=== PATIENT | female | born 1985 | race Caucasian/White ===

== ENCOUNTER 2017-04-09 14:01 | Emergency (ER) | payer MEDICAID ==
[~2017-04-09] VITALS: Ht 162.6 cm; Wt 75.3 kg
[2017-04-09 14:02] VITALS: BP 118/81
[2017-04-09] MEDS ORDERED: BENZOCAINE 20% SPRAY 0.5ML TP ONE (14:30)
[2017-04-09] MEDS ORDERED: BENZOCAINE 20% SPRAY 0.5ML ONE (14:47)
[2017-04-09] MEDS ORDERED: OXYcodone/APAP 5/325MG TABLET PO ONE (15:00)
[2017-04-09] MEDS ORDERED: OXYcodone/APAP 5/325MG TABLET ONE (15:25)
== END 2017-04-09 16:20 | disposition home or self-care (01) ==
LOC: ED 16:14
DX: K04.7 Periapical abscess without sinus (principal); F17.200 Nicotine dependence, unspecified, uncomplicated
CPT/HCPCS: 41800

== ENCOUNTER 2017-08-29 22:49 | Emergency (ER) | payer MEDICAID ==
[~2017-08-29] VITALS: Ht 162.6 cm; Wt 74.3 kg
[2017-08-29] MEDS ORDERED: ONDANSETRON 2MG/ML, 2ML IVPush ONE (23:30)
[2017-08-29] MEDS ORDERED: SODIUM CHLORIDE FLUSH 10ML SYR IVF ONE (23:30)
[2017-08-29] MEDS ORDERED: SODIUM CHLORIDE 0.9% 1,000ML IVBOLUS ONE (23:30)
[2017-08-29] MEDS ORDERED: MORPHINE SULFATE 4 MG/ML, 1ML IVPush PRN (23:30)
[2017-08-29] MEDS ORDERED: ONDANSETRON 2MG/ML, 2ML ONE (23:33)
[2017-08-29 23:42] LABS: HEMATOCRIT 49.3 % (34.6-47.8); HEMOGLOBIN 16.7 g/dL (11.7-16.4)
[2017-08-29 23:59] LABS: BLOOD UREA NITROGEN 9 mg/dL (7-18)
[2017-08-30 00:06] LABS: ASPARTATE AMINO TRANSFERASE 23 U/L (15-37)
[2017-08-30 00:08] LABS: DIFF TOTAL CELLS COUNTED 100 CELL DIFF
[2017-08-30 00:14] LABS: LARGE PLATELETS 1+
[2017-08-30] MEDS ORDERED: PROMETHAZINE 25 MG/ML, 1ML ONE (01:55)
[2017-08-30] MEDS ORDERED: PROMETHAZINE 25 MG/ML, 1ML IM ONE (02:00)
[2017-08-30 02:45] VITALS: BP 104/61
[2017-08-30] MEDS ORDERED: ONDANSETRON ODT 4 MG ONE (02:50)
[2017-08-30 14:47] LABS: VERIFY COUNTS? YES
== END 2017-08-30 02:49 | disposition home or self-care (01) ==
LOC: ED 08-30 02:43
DX: R10.84 Generalized abdominal pain (principal); R11.2 Nausea with vomiting, unspecified; R19.7 Diarrhea, unspecified
CPT/HCPCS: 36415; 80053; 81003; 83690; 84703; 85025; 87324; 96361; 96372; 96374; 99284; J2405; J2550; J7030

== ENCOUNTER 2018-10-14 02:29 | Inpatient (IN) | payer MEDICAID, OTHER ==
[~2018-10-14] VITALS: Ht 162.6 cm; Wt 70.0 kg
--- NOTE | 2018-10-14 02:32 | NUR ---
PT NIL X 1
--- NOTE | 2018-10-14 03:03 | NUR ---
ASSUMED CARE OF PATIENT. PATIENT REPORTS SHE HAS BEEN SICK FOR 17 DAYS. SHE HAS HAD FEVERS, NAUSEA, VOMITING, BODY ACHES, AND HEADACHES. GIRLFRIEND AT BEDSIDE. PT REPORTS TO SHOOTING UP HEROINE TWO HOURS AGO. PULSE OX ON. WARD ASSISTANT ON. WILL CONTINUE TO MONITOR.
--- NOTE | 2018-10-14 03:24 | NUR ---
DR HERNANDEZ HAS SEEN PATIENT. PT IS NOT ABLE TO GIVE URINE AT THIS TIME CALL LIGHT IN PLACE. WILL CONTINUE TO MONITOR.
[2018-10-14 03:43] LABS: MEAN CORPUSCULAR HEMOGLOBIN 30.1 pg (27.0-34.8); MEAN CORPUSCULAR VOLUME 85.9 fL (80-100); MEAN PLATELET VOLUME 9.3 fL (7.4-10.4); PLATELET COUNT 157 x10^3/uL (130-400); RED BLOOD COUNT 4.08 x10^6/uL (3.82-5.3); RED CELL DISTRIBUTION WIDTH 14.4 % (9.6-15.2)
[2018-10-14 03:51] LABS: CHLORIDE 99 mmol/L (98-107)
[2018-10-14 03:58] LABS: ALANINE AMINOTRANSFERASE 39 U/L (12-78); ALBUMIN 1.7 g/dL (3.4-5.0); ANION GAP 10 mmol/L (5-15); CALCIUM 7.9 mg/dL (8.5-10.1); CREATININE 0.44 mg/dL (0.55-1.02)
[2018-10-14 04:15] LABS: ALKALINE PHOSPHATASE 296 U/L (45-117); BILIRUBIN,TOTAL 2.4 mg/dL (0.2-1.0); TOTAL PROTEIN 6.1 g/dL (6.4-8.2); TROPONIN I < 0.015 ng/mL (0.000-0.045)
[2018-10-14] MEDS ORDERED: ACETAMINOPHEN 500 MG TABLET ONE (04:18)
[2018-10-14 04:26] LABS: BASOPHILS # (AUTO) 0.02 x10^3/uL (0-0.1); BASOPHILS % (AUTO) 0 % (0-1); EOSINOPHILS # (AUTO) 0.02 x10^3/uL (0-0.4); EOSINOPHILS % (AUTO) 0 % (1-7); LYMPHOCYTES # (AUTO) 1.18 x10^3/uL (1-3.4); LYMPHOCYTES % (AUTO) 5 % (22-44); MD SCAN; MONOCYTES # (AUTO) 0.42 x10^3/uL (0.2-0.8); MONOCYTES % (AUTO) 2 % (2-9); NEUTROPHILS # (AUTO) 20.92 x10^3/uL (1.8-6.8); NEUTROPHILS % (AUTO) 93 % (42-75)
[2018-10-14] MEDS ORDERED: ACETAMINOPHEN 500 MG TABLET PO ONE (04:30)
[2018-10-14] MEDS ORDERED: POTASSIUM CHLORIDE 20 MEQ TAB.ER.PRT PO ONE (04:30)
--- NOTE | 2018-10-14 04:37 | NUR ---
UA COLLECTED AND SENT PT RESTING IN ROOM. GIRLFRIEND AT BEDSIDE. WILL CONTINUE TO MONITOR.
[2018-10-14] MEDS ORDERED: POTASSIUM CHLORIDE 20 MEQ TAB.ER.PRT ONE (04:45)
[2018-10-14 04:48] LABS: RAPID INFLUENZA A Negative (Negative); RAPID INFLUENZA B Negative (Negative)
[2018-10-14 04:49] LABS: MICROSCOPIC NOT IND
[2018-10-14 04:50] LABS: CULTURE INDICATED? NO
[2018-10-14] MEDS ORDERED: KETOROLAC 30 MG/1 ML ONE (04:50)
[2018-10-14] MEDS ORDERED: KETOROLAC 30 MG/1 ML IM ONE (05:00)
[2018-10-14 05:05] LABS: AMPHETAMINE SCREEN, URINE Positive (Negative); BARBITURATE SCREEN, URINE Negative (Negative); BENZODIAZEPINE SCREEN, URINE Negative (Negative); CANNABINOID SCREEN, URINE Negative (Negative); COCAINE SCREEN, URINE Negative (Negative); METHADONE SCREEN, URINE Negative (Negative); OPIATE SCREEN, URINE Positive (Negative)
--- NOTE | 2018-10-14 05:18 | NUR ---
DR HERNANDEZ IN ROOM
--- NOTE | 2018-10-14 05:31 | NUR ---
DR HERNANDEZ HAD UPDATED PATIENT. PATIENT TO BE DISCHRAGED. AWARE OF VS
--- NOTE | 2018-10-14 05:39 | NUR ---
DR HERNANDEZ IN ROOM
--- NOTE | 2018-10-14 05:56 | NUR ---
PT WILL NOT BE DISCHRAGED PT TO BE AN ADMIT
--- NOTE | 2018-10-14 06:25 | NUR ---
PT RESTING IN ROOM. OPERATING ROOM AIDE ON. SINUS TACH NOTED. VS STABLE. MD AWARE OF VS. CALL LIGHT IN PLACE. WILL CONTINUE TO MONITOR.
--- NOTE | 2018-10-14 06:55 | NUR ---
BEDSIDE REPORT GIVEN TO ZOHREH HURTADO
[2018-10-14] MEDS ORDERED: ONDANSETRON 2MG/ML, 2ML IVPush PRN (07:00)
--- NOTE | 2018-10-14 07:01 | NUR ---
Recieved bedside report from ZOHREH De. All questions answered. NADN. Pt resting on gurney connected to all monitors. Pt remains tachycardic in the 110-120's. Pt states, "I still feel like crap." Hospitalist MD at bedside at this time. All safety measures in place.
[2018-10-14] MEDS ORDERED: ENOXAPARIN 40 MG/0.4 ML ONE (07:27)
[2018-10-14] MEDS ORDERED: ONDANSETRON 2MG/ML, 2ML ONE (07:27)
[2018-10-14] MEDS ORDERED: SODIUM CHLORIDE 0.9%, 500ML IVBOLUS PRN ×2 (07:30)
[2018-10-14] MEDS ORDERED: PHARMACY MAY ADJ FOR RENAL FX MC PRN (07:30)
[2018-10-14] MEDS ORDERED: ONDANSETRON 2MG/ML, 2ML IVPB PRN (07:30)
[2018-10-14] MEDS ORDERED: SODIUM CHLORIDE 0.9% 1,000ML IVBOLUS ONE (07:30)
[2018-10-14] MEDS ORDERED: VANCOMYCIN PER PHARMACY MC PRN (07:30)
[2018-10-14] MEDS: ENOXAPARIN 40 MG/0.4 ML SQ SCH (07:38)
--- NOTE | 2018-10-14 07:44 | NUR ---
Provided report to ZOHREH Murray. All questions answered.
[2018-10-14] MEDS ORDERED: FAMOTIDINE 20 MG/2 ML ONE (07:45)
[2018-10-14] MEDS: FAMOTIDINE 20 MG/2 ML IV SCH ×2 (07:48→19:45)
[2018-10-14] MEDS: PIPERACILLIN/TAZO/PMX 4.5GM 50 ML IVPB SCH ×3 (07:50→22:22)
[2018-10-14 08:20] LABS: HCT (SEDRATE) 34.6 % (34.6-47.8)
--- NOTE | 2018-10-14 08:22 | NUR ---
PIV FLUIDS AND MEDICATIONS INFUSING PER EMAR ON TRANSFER FROM ED TO FLOOR. PT TRANSFERED TO FLOOR AND LEFT WITH ALL PERSONAL BELONGINGS.
[2018-10-14 08:30] VITALS: BP 108/71
[2018-10-14] MEDS: SODIUM CHLORIDE 0.9% 1,000 ML IV SCH ×3 (08:55→19:49)
[2018-10-14] MEDS: PLEASE ENTER HEIGHT AND WEIGHT MC SCH ×2 (10:00→16:20)
[2018-10-14 10:44] VITALS: BP_SYST 102; BP_SYST 114; BP_SYST 99; BP_DIAS 56; BP_DIAS 60; BP_DIAS 71
[2018-10-14 12:15] VITALS: BP 97/62
[2018-10-14] MEDS ORDERED: PHARMACOKINETIC MONITORING MC PRN (12:30)
[2018-10-14] MEDS ORDERED: PHARMACOKINETIC CONSULTATION MC ONE (12:30)
[2018-10-14] MEDS: ACETAMINOPHEN 325 MG TABLET PO PRN ×2 (12:55→21:29)
[2018-10-14] MEDS ORDERED: ACETAMINOPHEN 650 MG SUPP PR PRN (13:00)
[2018-10-14] MEDS ORDERED: ACETAMINOPHEN 325 MG TABLET PO PRN (13:00)
[2018-10-14] MEDS: VANCOMYCIN 1,400 MG in SODIUM CHLORIDE 0.9% 250 ML IV SCH (14:17)
[2018-10-14 19:04] VITALS: BP 114/74
[2018-10-14] MEDS: NICOTINE 21 MG/24 HR PATCH.TD24 TD SCH (19:45)
[2018-10-15] MEDS ORDERED: DIPHENHYDRAMINE 25 MG CAPSULE PO ONE
[2018-10-15] MEDS: PLEASE ENTER HEIGHT AND WEIGHT MC SCH ×3 (02:00→17:35)
[2018-10-15] MEDS: VANCOMYCIN 1,400 MG in SODIUM CHLORIDE 0.9% 250 ML IV SCH ×2 (02:14→15:36)
[2018-10-15 02:44] VITALS: BP 102/63
[2018-10-15] MEDS: SODIUM CHLORIDE 0.9% 1,000 ML IV SCH ×2 (03:12→15:37)
[2018-10-15] MEDS: PIPERACILLIN/TAZO/PMX 4.5GM 50 ML IVPB SCH ×3 (04:52→18:25)
[2018-10-15 05:13] LABS: BASOPHILS # (AUTO) 0.01 x10^3/uL (0-0.1); BASOPHILS % (AUTO) 0 % (0-1); EOSINOPHILS # (AUTO) 0.05 x10^3/uL (0-0.4); EOSINOPHILS % (AUTO) 0 % (1-7); LYMPHOCYTES # (AUTO) 2.33 x10^3/uL (1-3.4); LYMPHOCYTES % (AUTO) 15 % (22-44); MD NO; MEAN CORPUSCULAR HEMOGLOBIN 30.1 pg (27.0-34.8); MEAN CORPUSCULAR HGB CONC 34.5 g/dL (32.4-35.8); MEAN CORPUSCULAR VOLUME 87.4 fL (80-100); MONOCYTES # (AUTO) 1.02 x10^3/uL (0.2-0.8); MONOCYTES % (AUTO) 6 % (2-9); NEUTROPHILS # (AUTO) 12.48 x10^3/uL (1.8-6.8); NEUTROPHILS % (AUTO) 79 % (42-75); PLATELET COUNT 165 x10^3/uL (130-400); RED BLOOD COUNT 3.29 x10^6/uL (3.82-5.3); RED CELL DISTRIBUTION WIDTH 14.7 % (9.6-15.2)
[2018-10-15 05:21] LABS: ALBUMIN 1.4 g/dL (3.4-5.0); ANION GAP 6 mmol/L (5-15); CALCIUM 7.1 mg/dL (8.5-10.1); CHLORIDE 114 mmol/L (98-107)
[2018-10-15 05:25] LABS: ALANINE AMINOTRANSFERASE 43 U/L (12-78); ALKALINE PHOSPHATASE 314 U/L (45-117); BILIRUBIN,TOTAL 1.6 mg/dL (0.2-1.0); TOTAL PROTEIN 5.1 g/dL (6.4-8.2)
[2018-10-15 07:08] VITALS: BP 104/71
[2018-10-15] MEDS: FAMOTIDINE 20 MG/2 ML IV SCH ×2 (07:40→20:16)
[2018-10-15] MEDS: ENOXAPARIN 40 MG/0.4 ML SQ SCH (07:40)
[2018-10-15] MEDS ORDERED: KETOROLAC 30 MG/1 ML IVPush ONE ×2 (08:30→18:00)
[2018-10-15] MEDS: NICOTINE 21 MG/24 HR PATCH.TD24 TD SCH (12:52)
[2018-10-15 15:34] VITALS: BP 92/64
[2018-10-15 18:43] LABS: TROPONIN I < 0.015 ng/mL (0.000-0.045)
[2018-10-15 20:45] VITALS: BP 102/67
[2018-10-16 00:08] LABS: TROPONIN I < 0.015 ng/mL (0.000-0.045)
[2018-10-16] MEDS: SODIUM CHLORIDE 0.9% 1,000 ML IV SCH ×3 (00:47→21:23)
[2018-10-16] MEDS: PIPERACILLIN/TAZO/PMX 4.5GM 50 ML IVPB SCH (00:47)
[2018-10-16 00:52] VITALS: BP 106/68
[2018-10-16] MEDS: PLEASE ENTER HEIGHT AND WEIGHT MC SCH ×2 (02:23→07:53)
[2018-10-16] MEDS: VANCOMYCIN 1,400 MG in SODIUM CHLORIDE 0.9% 250 ML IV SCH (03:31)
[2018-10-16 05:12] VITALS: BP 92/62
[2018-10-16 06:02] LABS: MEAN CORPUSCULAR HEMOGLOBIN 29.5 pg (27.0-34.8); MEAN CORPUSCULAR HGB CONC 33.8 g/dL (32.4-35.8); MEAN CORPUSCULAR VOLUME 87.2 fL (80-100); MEAN PLATELET VOLUME 9.2 fL (7.4-10.4); PLATELET COUNT 327 x10^3/uL (130-400); RED BLOOD COUNT 3.36 x10^6/uL (3.82-5.3); RED CELL DISTRIBUTION WIDTH 14.8 % (9.6-15.2)
[2018-10-16 06:03] LABS: TROPONIN I < 0.015 ng/mL (0.000-0.045)
[2018-10-16 06:04] LABS: ALBUMIN 1.4 g/dL (3.4-5.0); ANION GAP 8 mmol/L (5-15); CALCIUM 7.2 mg/dL (8.5-10.1); CHLORIDE 113 mmol/L (98-107)
[2018-10-16 06:08] LABS: ALANINE AMINOTRANSFERASE 34 U/L (12-78); ALKALINE PHOSPHATASE 246 U/L (45-117); BILIRUBIN,TOTAL 0.8 mg/dL (0.2-1.0); CREATININE 0.86 mg/dL (0.55-1.02); TOTAL PROTEIN 5.2 g/dL (6.4-8.2)
[2018-10-16 06:40] VITALS: BP 92/63
[2018-10-16 06:41] LABS: BASOPHILS # (AUTO) 0.01 x10^3/uL (0-0.1); BASOPHILS % (AUTO) 0 % (0-1); EOSINOPHILS # (AUTO) 0.05 x10^3/uL (0-0.4); EOSINOPHILS % (AUTO) 0 % (1-7); LYMPHOCYTES # (AUTO) 2.94 x10^3/uL (1-3.4); LYMPHOCYTES % (AUTO) 22 % (22-44); MD SCAN; MONOCYTES # (AUTO) 0.55 x10^3/uL (0.2-0.8); MONOCYTES % (AUTO) 4 % (2-9); NEUTROPHILS # (AUTO) 10.08 x10^3/uL (1.8-6.8); NEUTROPHILS % (AUTO) 74 % (42-75)
[2018-10-16] MEDS: ENOXAPARIN 40 MG/0.4 ML SQ SCH (07:30)
[2018-10-16] MEDS: NICOTINE 21 MG/24 HR PATCH.TD24 TD SCH (09:00)
[2018-10-16] MEDS: CEFTRIAXONE PMX 2GM/50ML 50 ML IV SCH (10:01)
[2018-10-16] MEDS: FAMOTIDINE 20 MG/2 ML IV SCH ×2 (10:01→21:24)
[2018-10-16 14:02] VITALS: BP 113/67
[2018-10-16] MEDS ORDERED: ACETAMINOPHEN 1,000 MG/100 ML IV IVPB PRN (16:00)
[2018-10-16] MEDS ORDERED: TRAZODONE 50MG TABLET PO PRN (16:00)
[2018-10-16] MEDS ORDERED: KETOROLAC 30 MG/1 ML IVPush PRN (18:00)
[2018-10-16] MEDS: METHADONE 10 MG TABLET PO SCH (18:23)
[2018-10-16 19:51] VITALS: BP 103/69
[2018-10-16] MEDS: ACETAMINOPHEN 500 MG TABLET PO PRN (21:23)
[2018-10-16] MEDS: GABAPENTIN 300 MG CAPSULE PO PRN (21:24)
[2018-10-16] MEDS: TRAZODONE 50MG TABLET PO PRN (21:24)
[2018-10-17] MEDS: METHADONE 10 MG TABLET PO SCH ×3 (02:20→18:53)
[2018-10-17 02:22] VITALS: BP 108/72
[2018-10-17] MEDS: SODIUM CHLORIDE 0.9% 1,000 ML IV SCH ×3 (04:56→22:16)
[2018-10-17 07:15] VITALS: BP 105/67
[2018-10-17 08:00] LABS: BASOPHILS # (AUTO) 0.04 x10^3/uL (0-0.1); BASOPHILS % (AUTO) 0 % (0-1); EOSINOPHILS # (AUTO) 0.02 x10^3/uL (0-0.4); EOSINOPHILS % (AUTO) 0 % (1-7); LYMPHOCYTES # (AUTO) 2.01 x10^3/uL (1-3.4); LYMPHOCYTES % (AUTO) 18 % (22-44); MD NO; MEAN CORPUSCULAR HEMOGLOBIN 29.5 pg (27.0-34.8); MEAN CORPUSCULAR HGB CONC 34.3 g/dL (32.4-35.8); MEAN CORPUSCULAR VOLUME 86.2 fL (80-100); MEAN PLATELET VOLUME 8.7 fL (7.4-10.4); MONOCYTES # (AUTO) 0.53 x10^3/uL (0.2-0.8); MONOCYTES % (AUTO) 5 % (2-9); NEUTROPHILS % (AUTO) 76 % (42-75); PLATELET COUNT 399 x10^3/uL (130-400); RED CELL DISTRIBUTION WIDTH 14.8 % (9.6-15.2)
[2018-10-17 08:12] LABS: ALANINE AMINOTRANSFERASE 40 U/L (12-78); ALBUMIN 1.4 g/dL (3.4-5.0); ANION GAP 7 mmol/L (5-15); CALCIUM 7.3 mg/dL (8.5-10.1); CHLORIDE 115 mmol/L (98-107); CREATININE 1.02 mg/dL (0.55-1.02)
[2018-10-17] MEDS: FAMOTIDINE 20 MG/2 ML IV SCH ×2 (08:12→18:53)
[2018-10-17] MEDS: ACETAMINOPHEN 500 MG TABLET PO PRN ×2 (08:12→21:25)
[2018-10-17] MEDS: ENOXAPARIN 40 MG/0.4 ML SQ SCH (08:12)
[2018-10-17] MEDS: NICOTINE 21 MG/24 HR PATCH.TD24 TD SCH (08:13)
[2018-10-17 08:15] LABS: ALKALINE PHOSPHATASE 283 U/L (45-117); BILIRUBIN,TOTAL 0.7 mg/dL (0.2-1.0); TOTAL PROTEIN 5.4 g/dL (6.4-8.2)
[2018-10-17] MEDS: CEFTRIAXONE PMX 2GM/50ML 50 ML IV SCH (10:32)
[2018-10-17] MEDS ORDERED: GADOBUTROL 7.5 MMOL/7.5 ML PFS ONE (12:51)
[2018-10-17 14:11] VITALS: BP 103/65
[2018-10-17 18:20] VITALS: BP 106/70
[2018-10-17] MEDS: GENTAMICIN 100 MG in SODIUM CHLORIDE 0.9% 50 ML IV SCH (19:00)
[2018-10-17] MEDS: GABAPENTIN 300 MG CAPSULE PO PRN (21:25)
[2018-10-17] MEDS: TRAZODONE 50MG TABLET PO PRN (21:26)
[2018-10-18 02:00] VITALS: BP 128/75
[2018-10-18] MEDS: METHADONE 10 MG TABLET PO SCH ×3 (02:44→17:53)
[2018-10-18] MEDS: SODIUM CHLORIDE 0.9% 1,000 ML IV SCH ×3 (04:14→17:54)
[2018-10-18 07:00] VITALS: BP 102/66
[2018-10-18] MEDS: GENTAMICIN 100 MG in SODIUM CHLORIDE 0.9% 50 ML IV SCH ×2 (07:00→20:02)
[2018-10-18] MEDS: NICOTINE 21 MG/24 HR PATCH.TD24 TD SCH (08:50)
[2018-10-18] MEDS: FAMOTIDINE 20 MG/2 ML IV SCH (08:50)
[2018-10-18] MEDS: POLYETHYLENE GLYCOL 17 GM PACKET PO SCH (08:51)
[2018-10-18] MEDS: ENOXAPARIN 40 MG/0.4 ML SQ SCH (08:51)
[2018-10-18 09:47] LABS: ALBUMIN 1.4 g/dL (3.4-5.0); ANION GAP 7 mmol/L (5-15); CALCIUM 7.7 mg/dL (8.5-10.1); CHLORIDE 114 mmol/L (98-107)
[2018-10-18 09:50] LABS: ALANINE AMINOTRANSFERASE 37 U/L (12-78); ALKALINE PHOSPHATASE 261 U/L (45-117); BILIRUBIN,TOTAL 0.6 mg/dL (0.2-1.0); CREATININE 1.06 mg/dL (0.55-1.02); TOTAL PROTEIN 5.5 g/dL (6.4-8.2)
[2018-10-18] MEDS: CEFTRIAXONE PMX 2GM/50ML 50 ML IV SCH (10:31)
[2018-10-18 10:32] LABS: BASOPHILS # (AUTO) 0.03 x10^3/uL (0-0.1); BASOPHILS % (AUTO) 0 % (0-1); EOSINOPHILS # (AUTO) 0.04 x10^3/uL (0-0.4); EOSINOPHILS % (AUTO) 0 % (1-7); LYMPHOCYTES # (AUTO) 1.99 x10^3/uL (1-3.4); LYMPHOCYTES % (AUTO) 21 % (22-44); MD NO; MEAN CORPUSCULAR HEMOGLOBIN 29.3 pg (27.0-34.8); MEAN CORPUSCULAR HGB CONC 33.5 g/dL (32.4-35.8); MEAN CORPUSCULAR VOLUME 87.5 fL (80-100); MEAN PLATELET VOLUME 8.9 fL (7.4-10.4); MONOCYTES # (AUTO) 0.51 x10^3/uL (0.2-0.8); MONOCYTES % (AUTO) 5 % (2-9); NEUTROPHILS # (AUTO) 7.13 x10^3/uL (1.8-6.8); NEUTROPHILS % (AUTO) 74 % (42-75); PLATELET COUNT 412 x10^3/uL (130-400); RED BLOOD COUNT 3.12 x10^6/uL (3.82-5.3); RED CELL DISTRIBUTION WIDTH 14.6 % (9.6-15.2)
[2018-10-18] MEDS: PANTOPROZOLE 40MG TABLET PO SCH ×2 (14:42→20:02)
[2018-10-18] MEDS: ACETAMINOPHEN 500 MG TABLET PO PRN (15:42)
[2018-10-18 17:18] VITALS: BP 113/71
[2018-10-18 21:15] VITALS: BP 121/80
[2018-10-18] MEDS: TRAZODONE 50MG TABLET PO PRN (21:44)
[2018-10-18] MEDS: GABAPENTIN 300 MG CAPSULE PO PRN (21:44)
[2018-10-19] MEDS: METHADONE 10 MG TABLET PO SCH ×3 (02:25→17:55)
[2018-10-19] MEDS: SODIUM CHLORIDE 0.9% 1,000 ML IV SCH ×3 (02:25→20:55)
[2018-10-19 02:26] VITALS: BP 117/78
[2018-10-19] MEDS: PANTOPROZOLE 40MG TABLET PO SCH ×2 (04:29→21:09)
[2018-10-19] MEDS: ACETAMINOPHEN 500 MG TABLET PO PRN ×2 (04:30→15:31)
[2018-10-19 05:14] LABS: ALBUMIN 1.4 g/dL (3.4-5.0); ANION GAP 8 mmol/L (5-15); CALCIUM 7.5 mg/dL (8.5-10.1); CHLORIDE 111 mmol/L (98-107)
[2018-10-19 05:21] LABS: BASOPHILS # (AUTO) 0.03 x10^3/uL (0-0.1); BASOPHILS % (AUTO) 0 % (0-1); EOSINOPHILS # (AUTO) 0.06 x10^3/uL (0-0.4); EOSINOPHILS % (AUTO) 1 % (1-7); LYMPHOCYTES % (AUTO) 18 % (22-44); MD NO; MEAN CORPUSCULAR HEMOGLOBIN 30.5 pg (27.0-34.8); MEAN CORPUSCULAR HGB CONC 35.1 g/dL (32.4-35.8); MEAN CORPUSCULAR VOLUME 87.1 fL (80-100); MEAN PLATELET VOLUME 8.4 fL (7.4-10.4); MONOCYTES # (AUTO) 0.49 x10^3/uL (0.2-0.8); MONOCYTES % (AUTO) 5 % (2-9); NEUTROPHILS # (AUTO) 7.56 x10^3/uL (1.8-6.8); NEUTROPHILS % (AUTO) 76 % (42-75); PLATELET COUNT 438 x10^3/uL (130-400); RED BLOOD COUNT 2.88 x10^6/uL (3.82-5.3); RED CELL DISTRIBUTION WIDTH 14.1 % (9.6-15.2)
[2018-10-19 08:00] VITALS: BP 117/79
[2018-10-19] MEDS: NICOTINE 21 MG/24 HR PATCH.TD24 TD SCH (08:43)
[2018-10-19] MEDS: ENOXAPARIN 40 MG/0.4 ML SQ SCH (08:43)
[2018-10-19] MEDS: GENTAMICIN 100 MG in SODIUM CHLORIDE 0.9% 50 ML IV SCH ×2 (08:44→20:55)
[2018-10-19] MEDS: POLYETHYLENE GLYCOL 17 GM PACKET PO SCH (08:44)
[2018-10-19 10:43] LABS: ALANINE AMINOTRANSFERASE 35 U/L (12-78); ALBUMIN 1.4 g/dL (3.4-5.0); ANION GAP 5 mmol/L (5-15); CALCIUM 8.1 mg/dL (8.5-10.1); CHLORIDE 113 mmol/L (98-107); CREATININE 1.01 mg/dL (0.55-1.02)
[2018-10-19 10:45] LABS: ALKALINE PHOSPHATASE 231 U/L (45-117); BILIRUBIN,TOTAL 0.5 mg/dL (0.2-1.0); TOTAL PROTEIN 5.7 g/dL (6.4-8.2)
[2018-10-19] MEDS: CEFTRIAXONE PMX 2GM/50ML 50 ML IV SCH (11:13)
[2018-10-19 13:29] VITALS: BP 110/75
[2018-10-19 19:03] VITALS: BP 106/73
[2018-10-19] MEDS: TRAZODONE 50MG TABLET PO PRN (21:09)
[2018-10-19] MEDS: ALBUTEROL SULFATE 2.5 MG/3 ML NPPB PRN (23:52)
[2018-10-20 01:12] VITALS: BP 114/73
[2018-10-20] MEDS: METHADONE 10 MG TABLET PO SCH ×3 (01:17→17:43)
[2018-10-20] MEDS: ACETAMINOPHEN 500 MG TABLET PO PRN ×2 (01:17→08:57)
[2018-10-20 04:46] LABS: BASOPHILS # (AUTO) 0.03 x10^3/uL (0-0.1); BASOPHILS % (AUTO) 0 % (0-1); EOSINOPHILS # (AUTO) 0.07 x10^3/uL (0-0.4); EOSINOPHILS % (AUTO) 1 % (1-7); LYMPHOCYTES # (AUTO) 1.82 x10^3/uL (1-3.4); LYMPHOCYTES % (AUTO) 21 % (22-44); MD NO; MEAN CORPUSCULAR HEMOGLOBIN 30.1 pg (27.0-34.8); MEAN CORPUSCULAR HGB CONC 34.7 g/dL (32.4-35.8); MEAN CORPUSCULAR VOLUME 86.9 fL (80-100); MONOCYTES # (AUTO) 0.47 x10^3/uL (0.2-0.8); MONOCYTES % (AUTO) 5 % (2-9); NEUTROPHILS # (AUTO) 6.32 x10^3/uL (1.8-6.8); NEUTROPHILS % (AUTO) 73 % (42-75); PLATELET COUNT 504 x10^3/uL (130-400); RED BLOOD COUNT 2.97 x10^6/uL (3.82-5.3); RED CELL DISTRIBUTION WIDTH 14.3 % (9.6-15.2)
[2018-10-20 04:58] LABS: ALBUMIN 1.5 g/dL (3.4-5.0); ANION GAP 9 mmol/L (5-15); CALCIUM 7.5 mg/dL (8.5-10.1); CHLORIDE 108 mmol/L (98-107); CREATININE 1.03 mg/dL (0.55-1.02)
[2018-10-20] MEDS: SODIUM CHLORIDE 0.9% 1,000 ML IV SCH (05:00)
[2018-10-20] MEDS: PANTOPROZOLE 40MG TABLET PO SCH ×2 (06:06→21:06)
[2018-10-20 08:20] VITALS: BP 114/75
[2018-10-20] MEDS: POLYETHYLENE GLYCOL 17 GM PACKET PO SCH (08:43)
[2018-10-20] MEDS: GENTAMICIN 100 MG in SODIUM CHLORIDE 0.9% 50 ML IV SCH ×2 (08:44→21:06)
[2018-10-20] MEDS: NICOTINE 21 MG/24 HR PATCH.TD24 TD SCH (08:44)
[2018-10-20] MEDS: ENOXAPARIN 40 MG/0.4 ML SQ SCH (08:44)
[2018-10-20] MEDS ORDERED: LIDOCAINE 1%, 10ML ONE (10:55)
[2018-10-20] MEDS: CEFTRIAXONE PMX 2GM/50ML 50 ML IV SCH (11:45)
[2018-10-20 17:05] VITALS: BP 127/82
[2018-10-20] MEDS: TRAZODONE 50MG TABLET PO PRN (21:06)
[2018-10-20] MEDS: ALBUTEROL SULFATE 2.5 MG/3 ML NPPB PRN (21:42)
[2018-10-20 21:57] VITALS: BP 97/68
[2018-10-21 00:42] VITALS: BP 109/71
[2018-10-21] MEDS: METHADONE 10 MG TABLET PO SCH ×3 (02:23→18:17)
[2018-10-21] MEDS: PANTOPROZOLE 40MG TABLET PO SCH ×2 (05:50→22:40)
[2018-10-21] MEDS: ACETAMINOPHEN 500 MG TABLET PO PRN (05:52)
[2018-10-21 06:43] VITALS: BP 102/65
[2018-10-21] MEDS: ENOXAPARIN 40 MG/0.4 ML SQ SCH (08:54)
[2018-10-21] MEDS: GENTAMICIN 100 MG in SODIUM CHLORIDE 0.9% 50 ML IV SCH ×2 (08:55→22:40)
[2018-10-21] MEDS: POLYETHYLENE GLYCOL 17 GM PACKET PO SCH (08:55)
[2018-10-21 09:12] LABS: BASOPHILS # (AUTO) 0.02 x10^3/uL (0-0.1); BASOPHILS % (AUTO) 0 % (0-1); EOSINOPHILS # (AUTO) 0.11 x10^3/uL (0-0.4); EOSINOPHILS % (AUTO) 2 % (1-7); LYMPHOCYTES # (AUTO) 2.04 x10^3/uL (1-3.4); LYMPHOCYTES % (AUTO) 29 % (22-44); MD NO; MEAN CORPUSCULAR HGB CONC 33.6 g/dL (32.4-35.8); MEAN CORPUSCULAR VOLUME 86.4 fL (80-100); MEAN PLATELET VOLUME 7.4 fL (7.4-10.4); MONOCYTES # (AUTO) 0.47 x10^3/uL (0.2-0.8); MONOCYTES % (AUTO) 7 % (2-9); NEUTROPHILS % (AUTO) 63 % (42-75); PLATELET COUNT 502 x10^3/uL (130-400); RED BLOOD COUNT 3.16 x10^6/uL (3.82-5.3)
[2018-10-21] MEDS: NICOTINE 21 MG/24 HR PATCH.TD24 TD SCH (09:12)
[2018-10-21 09:13] LABS: HCT (SEDRATE) 27.4 % (34.6-47.8)
[2018-10-21 09:19] LABS: ALBUMIN 1.6 g/dL (3.4-5.0); CALCIUM 8.4 mg/dL (8.5-10.1); CHLORIDE 106 mmol/L (98-107)
[2018-10-21 09:27] LABS: ALANINE AMINOTRANSFERASE 28 U/L (12-78); ALKALINE PHOSPHATASE 264 U/L (45-117); BILIRUBIN,TOTAL 0.5 mg/dL (0.2-1.0); CREATININE 1.09 mg/dL (0.55-1.02); TOTAL PROTEIN 6.4 g/dL (6.4-8.2)
[2018-10-21 09:39] LABS: ANION GAP 5 mmol/L (5-15)
[2018-10-21] MEDS: NICOTINE 14MG/24 HR PATCH.TD24 TD SCH (10:02)
[2018-10-21] MEDS: CEFTRIAXONE PMX 2GM/50ML 50 ML IV SCH (11:19)
[2018-10-21 14:00] VITALS: BP 116/80
[2018-10-21 21:00] VITALS: BP 106/63
[2018-10-21] MEDS: TRAZODONE 50MG TABLET PO PRN (22:40)
[2018-10-22] MEDS: METHADONE 10 MG TABLET PO SCH ×3 (02:05→17:24)
[2018-10-22 02:17] VITALS: BP 94/57
[2018-10-22] MEDS: PANTOPROZOLE 40MG TABLET PO SCH ×2 (06:11→22:47)
[2018-10-22 07:37] VITALS: BP 97/65
[2018-10-22] MEDS: ENOXAPARIN 40 MG/0.4 ML SQ SCH (08:53)
[2018-10-22] MEDS: POLYETHYLENE GLYCOL 17 GM PACKET PO SCH (08:54)
[2018-10-22] MEDS: NICOTINE 14MG/24 HR PATCH.TD24 TD SCH (08:58)
[2018-10-22] MEDS: GENTAMICIN 100 MG in SODIUM CHLORIDE 0.9% 50 ML IV SCH ×2 (09:00→22:47)
[2018-10-22 12:28] VITALS: BP 98/61
[2018-10-22] MEDS: CEFTRIAXONE PMX 2GM/50ML 50 ML IV SCH (12:32)
[2018-10-22] MEDS: TRAZODONE 50MG TABLET PO PRN (22:48)
[2018-10-22 22:55] VITALS: BP 94/65
[2018-10-23] MEDS: METHADONE 10 MG TABLET PO SCH ×3 (01:41→18:21)
[2018-10-23 01:55] VITALS: BP 87/58
[2018-10-23] MEDS: PANTOPROZOLE 40MG TABLET PO SCH ×2 (06:19→21:21)
[2018-10-23 08:04] VITALS: BP 98/65
[2018-10-23] MEDS: ENOXAPARIN 40 MG/0.4 ML SQ SCH (08:42)
[2018-10-23] MEDS: NICOTINE 14MG/24 HR PATCH.TD24 TD SCH (08:42)
[2018-10-23] MEDS: POLYETHYLENE GLYCOL 17 GM PACKET PO SCH (08:42)
[2018-10-23] MEDS: GENTAMICIN 100 MG in SODIUM CHLORIDE 0.9% 50 ML IV SCH ×2 (08:43→21:00)
[2018-10-23] MEDS ORDERED: SODIUM CHLORIDE 0.45% 1,000 ML IV SCH (09:00)
[2018-10-23] MEDS: CEFTRIAXONE PMX 2GM/50ML 50 ML IV SCH (11:43)
[2018-10-23 14:00] VITALS: BP 122/60
[2018-10-23 20:54] VITALS: BP 100/68
[2018-10-23] MEDS: TRAZODONE 50MG TABLET PO PRN (21:21)
[2018-10-24] MEDS: METHADONE 10 MG TABLET PO SCH ×3 (02:47→18:03)
[2018-10-24 03:57] VITALS: BP 99/67
[2018-10-24] MEDS: PANTOPROZOLE 40MG TABLET PO SCH ×2 (05:51→20:55)
[2018-10-24 08:00] VITALS: BP 90/57
[2018-10-24] MEDS: POLYETHYLENE GLYCOL 17 GM PACKET PO SCH (09:00)
[2018-10-24] MEDS: NICOTINE 14MG/24 HR PATCH.TD24 TD SCH ×2 (09:14→09:30)
[2018-10-24] MEDS: ENOXAPARIN 40 MG/0.4 ML SQ SCH (09:14)
[2018-10-24 12:37] VITALS: BP 91/60
[2018-10-24] MEDS: GENTAMICIN 100 MG in SODIUM CHLORIDE 0.9% 50 ML IV SCH ×2 (12:40→20:55)
[2018-10-24] MEDS: CEFTRIAXONE PMX 2GM/50ML 50 ML IV SCH (13:33)
[2018-10-24 18:50] VITALS: BP 90/61
[2018-10-24] MEDS: TRAZODONE 50MG TABLET PO PRN (21:10)
[2018-10-25 01:14] VITALS: BP 93/59
[2018-10-25] MEDS: GABAPENTIN 300 MG CAPSULE PO PRN (02:08)
[2018-10-25] MEDS: METHADONE 10 MG TABLET PO SCH ×3 (02:08→17:22)
[2018-10-25 05:55] LABS: BASOPHILS # (AUTO) 0.07 x10^3/uL (0-0.1); BASOPHILS % (AUTO) 1 % (0-1); EOSINOPHILS % (AUTO) 1 % (1-7); LYMPHOCYTES # (AUTO) 1.96 x10^3/uL (1-3.4); LYMPHOCYTES % (AUTO) 20 % (22-44); MD NO; MEAN CORPUSCULAR HEMOGLOBIN 29.6 pg (27.0-34.8); MEAN CORPUSCULAR HGB CONC 34.9 g/dL (32.4-35.8); MEAN CORPUSCULAR VOLUME 84.8 fL (80-100); MEAN PLATELET VOLUME 7.4 fL (7.4-10.4); MONOCYTES # (AUTO) 0.48 x10^3/uL (0.2-0.8); MONOCYTES % (AUTO) 5 % (2-9); NEUTROPHILS # (AUTO) 6.98 x10^3/uL (1.8-6.8); NEUTROPHILS % (AUTO) 73 % (42-75); PLATELET COUNT 438 x10^3/uL (130-400); RED BLOOD COUNT 3.47 x10^6/uL (3.82-5.3); RED CELL DISTRIBUTION WIDTH 14.3 % (9.6-15.2)
[2018-10-25 05:57] LABS: CHLORIDE 101 mmol/L (98-107)
[2018-10-25] MEDS: PANTOPROZOLE 40MG TABLET PO SCH ×2 (06:00→21:00)
[2018-10-25 06:06] LABS: ALANINE AMINOTRANSFERASE 23 U/L (12-78); ALBUMIN 2.2 g/dL (3.4-5.0); ALKALINE PHOSPHATASE 358 U/L (45-117); ANION GAP 8 mmol/L (5-15); BILIRUBIN,TOTAL 0.4 mg/dL (0.2-1.0); CALCIUM 8.6 mg/dL (8.5-10.1); TOTAL PROTEIN 7.9 g/dL (6.4-8.2)
[2018-10-25 08:02] VITALS: BP 93/56
[2018-10-25] MEDS: GENTAMICIN 100 MG in SODIUM CHLORIDE 0.9% 50 ML IV SCH ×2 (09:19→21:00)
[2018-10-25] MEDS: ENOXAPARIN 40 MG/0.4 ML SQ SCH (09:19)
[2018-10-25] MEDS: NICOTINE 14MG/24 HR PATCH.TD24 TD SCH (09:20)
[2018-10-25] MEDS: POLYETHYLENE GLYCOL 17 GM PACKET PO SCH (09:28)
[2018-10-25] MEDS: CEFTRIAXONE PMX 2GM/50ML 50 ML IV SCH (10:06)
[2018-10-25 13:49] VITALS: BP 91/63
[2018-10-25 19:55] VITALS: BP 94/69
[2018-10-25] MEDS: TRAZODONE 50MG TABLET PO PRN (21:00)
[2018-10-26 02:04] VITALS: BP 101/70
[2018-10-26] MEDS: GABAPENTIN 300 MG CAPSULE PO PRN (02:08)
[2018-10-26] MEDS: METHADONE 10 MG TABLET PO SCH ×3 (02:08→18:06)
[2018-10-26] MEDS: PANTOPROZOLE 40MG TABLET PO SCH ×2 (06:00→21:11)
[2018-10-26 07:20] VITALS: BP 92/62
[2018-10-26] MEDS: GENTAMICIN 100 MG in SODIUM CHLORIDE 0.9% 50 ML IV SCH ×2 (09:23→21:14)
[2018-10-26] MEDS: POLYETHYLENE GLYCOL 17 GM PACKET PO SCH (09:24)
[2018-10-26] MEDS: NICOTINE 14MG/24 HR PATCH.TD24 TD SCH (09:24)
[2018-10-26] MEDS: ENOXAPARIN 40 MG/0.4 ML SQ SCH (09:24)
[2018-10-26] MEDS: CEFTRIAXONE PMX 2GM/50ML 50 ML IV SCH (11:25)
[2018-10-26 12:32] VITALS: BP 96/67
[2018-10-26 20:34] VITALS: BP 96/67
[2018-10-26] MEDS: TRAZODONE 50MG TABLET PO PRN (21:11)
[2018-10-27 00:25] VITALS: BP 94/65
[2018-10-27] MEDS: GABAPENTIN 300 MG CAPSULE PO PRN ×2 (01:54→21:25)
[2018-10-27] MEDS: METHADONE 10 MG TABLET PO SCH ×3 (01:54→18:17)
[2018-10-27] MEDS: PANTOPROZOLE 40MG TABLET PO SCH ×2 (06:00→21:25)
[2018-10-27] MEDS ORDERED: SODIUM CHLORIDE 0.9%, 500ML IVBOLUS ONE (09:00)
[2018-10-27 09:15] VITALS: BP 94/66
[2018-10-27] MEDS: POLYETHYLENE GLYCOL 17 GM PACKET PO SCH (09:27)
[2018-10-27] MEDS: ENOXAPARIN 40 MG/0.4 ML SQ SCH (09:28)
[2018-10-27] MEDS: NICOTINE 14MG/24 HR PATCH.TD24 TD SCH (09:30)
[2018-10-27] MEDS: GENTAMICIN 100 MG in SODIUM CHLORIDE 0.9% 50 ML IV SCH ×2 (09:31→21:25)
[2018-10-27] MEDS: CEFTRIAXONE PMX 2GM/50ML 50 ML IV SCH (11:45)
[2018-10-27] MEDS: ERGOCALCIFEROL 50,000 UNIT CAPSULE PO SCH (13:59)
[2018-10-27 15:29] VITALS: BP 98/65
[2018-10-27 18:43] VITALS: BP 104/70
[2018-10-27] MEDS: ACETAMINOPHEN 500 MG TABLET PO PRN (21:25)
[2018-10-27] MEDS: TRAZODONE 50MG TABLET PO PRN (21:25)
[2018-10-28] MEDS: METHADONE 10 MG TABLET PO SCH ×3 (01:31→17:32)
[2018-10-28 01:33] VITALS: BP 91/62
[2018-10-28] MEDS: PANTOPROZOLE 40MG TABLET PO SCH ×2 (05:45→21:34)
[2018-10-28 05:47] VITALS: BP_SYST 102; BP_SYST 116; BP_DIAS 68; BP_DIAS 72
[2018-10-28] MEDS: ENOXAPARIN 40 MG/0.4 ML SQ SCH (08:43)
[2018-10-28] MEDS: GENTAMICIN 100 MG in SODIUM CHLORIDE 0.9% 50 ML IV SCH ×2 (08:44→21:34)
[2018-10-28 08:53] VITALS: BP 95/62
[2018-10-28] MEDS: POLYETHYLENE GLYCOL 17 GM PACKET PO SCH (09:00)
[2018-10-28] MEDS: NICOTINE 14MG/24 HR PATCH.TD24 TD SCH (09:09)
[2018-10-28] MEDS: CEFTRIAXONE PMX 2GM/50ML 50 ML IV SCH (12:07)
[2018-10-28 14:00] VITALS: BP 94/61
[2018-10-28 19:17] VITALS: BP 97/64
[2018-10-28] MEDS: TRAZODONE 50MG TABLET PO PRN (21:34)
[2018-10-29 00:05] VITALS: BP 94/62
[2018-10-29] MEDS: METHADONE 10 MG TABLET PO SCH ×3 (01:23→18:10)
[2018-10-29] MEDS: GABAPENTIN 300 MG CAPSULE PO PRN (01:27)
[2018-10-29] MEDS: ACETAMINOPHEN 500 MG TABLET PO PRN (01:27)
[2018-10-29 07:38] VITALS: BP 94/62
[2018-10-29] MEDS: NICOTINE 14MG/24 HR PATCH.TD24 TD SCH (09:30)
[2018-10-29] MEDS: GENTAMICIN 100 MG in SODIUM CHLORIDE 0.9% 50 ML IV SCH (10:28)
[2018-10-29] MEDS: ENOXAPARIN 40 MG/0.4 ML SQ SCH (10:32)
[2018-10-29] MEDS: POLYETHYLENE GLYCOL 17 GM PACKET PO SCH (10:33)
[2018-10-29] MEDS: PANTOPROZOLE 40MG TABLET PO SCH ×2 (10:40→21:33)
[2018-10-29] MEDS: CEFTRIAXONE PMX 2GM/50ML 50 ML IV SCH (11:08)
[2018-10-29 12:44] VITALS: BP 102/61
[2018-10-29 19:15] VITALS: BP 107/72
[2018-10-29] MEDS: TRAZODONE 50MG TABLET PO PRN (21:33)
[2018-10-30 00:44] VITALS: BP 100/65
[2018-10-30] MEDS: METHADONE 10 MG TABLET PO SCH ×3 (02:21→17:39)
[2018-10-30] MEDS: GABAPENTIN 300 MG CAPSULE PO PRN ×2 (02:21→20:39)
[2018-10-30] MEDS: PANTOPROZOLE 40MG TABLET PO SCH ×2 (05:52→20:39)
[2018-10-30 08:01] VITALS: BP 93/61
[2018-10-30] MEDS: POLYETHYLENE GLYCOL 17 GM PACKET PO SCH (09:00)
[2018-10-30] MEDS: NICOTINE 14MG/24 HR PATCH.TD24 TD SCH (09:30)
[2018-10-30] MEDS: ENOXAPARIN 40 MG/0.4 ML SQ SCH (09:58)
[2018-10-30] MEDS: CEFTRIAXONE PMX 2GM/50ML 50 ML IV SCH (10:57)
[2018-10-30 13:50] VITALS: BP 105/65
[2018-10-30 19:50] VITALS: BP 100/55
[2018-10-30] MEDS: TRAZODONE 50MG TABLET PO PRN (20:39)
[2018-10-31] MEDS: METHADONE 10 MG TABLET PO SCH ×3 (01:40→17:42)
[2018-10-31 01:45] VITALS: BP 92/60
[2018-10-31] MEDS: PANTOPROZOLE 40MG TABLET PO SCH ×2 (06:10→21:13)
[2018-10-31 07:10] VITALS: BP 99/64
[2018-10-31 09:20] LABS: ANION GAP 6 mmol/L (5-15); CHLORIDE 102 mmol/L (98-107); CREATININE 1.06 mg/dL (0.55-1.02)
[2018-10-31] MEDS: NICOTINE 14MG/24 HR PATCH.TD24 TD SCH (09:30)
[2018-10-31] MEDS: CEFTRIAXONE PMX 2GM/50ML 50 ML IV SCH (10:14)
[2018-10-31] MEDS: ENOXAPARIN 40 MG/0.4 ML SQ SCH (10:14)
[2018-10-31] MEDS: POLYETHYLENE GLYCOL 17 GM PACKET PO SCH (10:14)
[2018-10-31 12:55] VITALS: BP 117/69
[2018-10-31 18:58] VITALS: BP 93/58
[2018-10-31] MEDS: GABAPENTIN 300 MG CAPSULE PO PRN (21:13)
[2018-10-31] MEDS: TRAZODONE 50MG TABLET PO PRN (21:13)
[2018-11-01 00:52] VITALS: BP 99/69
[2018-11-01] MEDS: METHADONE 10 MG TABLET PO SCH ×3 (02:19→17:23)
[2018-11-01] MEDS: PANTOPROZOLE 40MG TABLET PO SCH (05:44)
[2018-11-01 06:08] LABS: HCT (SEDRATE) 31.8 % (34.6-47.8)
[2018-11-01 07:43] VITALS: BP 99/68
[2018-11-01] MEDS: ENOXAPARIN 40 MG/0.4 ML SQ SCH (09:30)
[2018-11-01] MEDS: POLYETHYLENE GLYCOL 17 GM PACKET PO SCH (09:31)
[2018-11-01] MEDS: NICOTINE 14MG/24 HR PATCH.TD24 TD SCH (09:31)
[2018-11-01] MEDS: CEFTRIAXONE PMX 2GM/50ML 50 ML IV SCH (11:20)
[2018-11-01 14:00] VITALS: BP 110/77
[2018-11-01 18:52] VITALS: BP 104/68
[2018-11-01] MEDS: GABAPENTIN 300 MG CAPSULE PO PRN (21:23)
[2018-11-01] MEDS: TRAZODONE 50MG TABLET PO PRN (21:23)
[2018-11-01] MEDS: DIPHENHYDRAMINE 25 MG CAPSULE PO PRN (22:11)
[2018-11-02 00:38] VITALS: BP 91/59
[2018-11-02] MEDS: METHADONE 10 MG TABLET PO SCH ×3 (02:08→17:09)
[2018-11-02 08:00] VITALS: BP 94/58
[2018-11-02] MEDS: ENOXAPARIN 40 MG/0.4 ML SQ SCH (09:17)
[2018-11-02] MEDS: POLYETHYLENE GLYCOL 17 GM PACKET PO SCH (09:19)
[2018-11-02] MEDS: NICOTINE 14MG/24 HR PATCH.TD24 TD SCH (09:19)
[2018-11-02] MEDS: CEFTRIAXONE PMX 2GM/50ML 50 ML IV SCH (11:22)
[2018-11-02 13:04] VITALS: BP 100/69
[2018-11-02 18:57] VITALS: BP 94/62
[2018-11-02] MEDS: TRAZODONE 50MG TABLET PO PRN (20:05)
[2018-11-02] MEDS: GABAPENTIN 300 MG CAPSULE PO PRN (20:05)
[2018-11-02] MEDS: ACETAMINOPHEN 500 MG TABLET PO PRN (20:06)
[2018-11-02] MEDS: DIPHENHYDRAMINE 25 MG CAPSULE PO PRN (21:03)
[2018-11-03 00:22] VITALS: BP 91/64
[2018-11-03] MEDS: METHADONE 10 MG TABLET PO SCH ×3 (02:04→18:01)
[2018-11-03] MEDS: ENOXAPARIN 40 MG/0.4 ML SQ SCH (08:30)
[2018-11-03] MEDS: POLYETHYLENE GLYCOL 17 GM PACKET PO SCH (09:00)
[2018-11-03 09:18] VITALS: BP 100/67
[2018-11-03] MEDS: NICOTINE 14MG/24 HR PATCH.TD24 TD SCH (09:30)
[2018-11-03] MEDS: CEFTRIAXONE PMX 2GM/50ML 50 ML IV SCH (10:58)
[2018-11-03 12:47] VITALS: BP 105/72
[2018-11-03] MEDS: ERGOCALCIFEROL 50,000 UNIT CAPSULE PO SCH (18:01)
[2018-11-03 18:38] VITALS: BP 111/67
[2018-11-03] MEDS: GABAPENTIN 300 MG CAPSULE PO PRN (21:51)
[2018-11-03] MEDS: TRAZODONE 50MG TABLET PO PRN (21:51)
[2018-11-03] MEDS: ACETAMINOPHEN 500 MG TABLET PO PRN (22:35)
[2018-11-03] MEDS: DIPHENHYDRAMINE 25 MG CAPSULE PO PRN (22:36)
[2018-11-04] MEDS: METHADONE 10 MG TABLET PO SCH ×3 (02:23→18:16)
[2018-11-04 02:25] VITALS: BP 101/65
[2018-11-04 06:33] LABS: BASOPHILS # (AUTO) 0.05 x10^3/uL (0-0.1); BASOPHILS % (AUTO) 1 % (0-1); EOSINOPHILS # (AUTO) 0.22 x10^3/uL (0-0.4); EOSINOPHILS % (AUTO) 3 % (1-7); HCT (SEDRATE) 32.9 % (34.6-47.8); LYMPHOCYTES # (AUTO) 2.17 x10^3/uL (1-3.4); LYMPHOCYTES % (AUTO) 31 % (22-44); MD NO; MEAN CORPUSCULAR HEMOGLOBIN 27.8 pg (27.0-34.8); MEAN CORPUSCULAR HGB CONC 32.9 g/dL (32.4-35.8); MEAN CORPUSCULAR VOLUME 84.4 fL (80-100); MEAN PLATELET VOLUME 7.4 fL (7.4-10.4); MONOCYTES # (AUTO) 0.49 x10^3/uL (0.2-0.8); MONOCYTES % (AUTO) 7 % (2-9); NEUTROPHILS # (AUTO) 4.01 x10^3/uL (1.8-6.8); NEUTROPHILS % (AUTO) 58 % (42-75); PLATELET COUNT 445 x10^3/uL (130-400); RED BLOOD COUNT 3.97 x10^6/uL (3.82-5.3); RED CELL DISTRIBUTION WIDTH 13.3 % (9.6-15.2)
[2018-11-04 06:44] LABS: ALANINE AMINOTRANSFERASE 28 U/L (12-78); ALBUMIN 2.7 g/dL (3.4-5.0); ANION GAP 6 mmol/L (5-15); CALCIUM 9.1 mg/dL (8.5-10.1); CHLORIDE 103 mmol/L (98-107); CREATININE 1.05 mg/dL (0.55-1.02)
[2018-11-04 06:53] LABS: ALKALINE PHOSPHATASE 283 U/L (45-117); BILIRUBIN,TOTAL 0.4 mg/dL (0.2-1.0); TOTAL PROTEIN 8.5 g/dL (6.4-8.2)
[2018-11-04 08:00] VITALS: BP 102/68
[2018-11-04] MEDS: ENOXAPARIN 40 MG/0.4 ML SQ SCH (09:02)
[2018-11-04] MEDS: POLYETHYLENE GLYCOL 17 GM PACKET PO SCH (09:02)
[2018-11-04] MEDS: NICOTINE 14MG/24 HR PATCH.TD24 TD SCH (09:02)
[2018-11-04] MEDS: CEFTRIAXONE PMX 2GM/50ML 50 ML IV SCH (11:18)
[2018-11-04 18:25] VITALS: BP 107/71
[2018-11-04 19:29] VITALS: BP 89/60
[2018-11-04] MEDS: DIPHENHYDRAMINE 25 MG CAPSULE PO PRN (21:55)
[2018-11-04] MEDS: GABAPENTIN 300 MG CAPSULE PO PRN (22:05)
[2018-11-04] MEDS: TRAZODONE 50MG TABLET PO PRN (22:05)
[2018-11-05 02:05] VITALS: BP 95/60
[2018-11-05] MEDS: METHADONE 10 MG TABLET PO SCH ×3 (02:13→18:29)
[2018-11-05 07:21] VITALS: BP 106/70
[2018-11-05] MEDS: ENOXAPARIN 40 MG/0.4 ML SQ SCH (08:30)
[2018-11-05] MEDS: POLYETHYLENE GLYCOL 17 GM PACKET PO SCH (09:00)
[2018-11-05] MEDS: NICOTINE 14MG/24 HR PATCH.TD24 TD SCH (09:30)
[2018-11-05 15:45] VITALS: BP 106/73
[2018-11-05] MEDS: CEFTRIAXONE PMX 2GM/50ML 50 ML IV SCH (15:49)
[2018-11-05 19:13] VITALS: BP 97/67
[2018-11-05] MEDS: TRAZODONE 50MG TABLET PO PRN (20:47)
[2018-11-05] MEDS: DIPHENHYDRAMINE 25 MG CAPSULE PO PRN (20:47)
[2018-11-05] MEDS: GABAPENTIN 300 MG CAPSULE PO PRN (20:47)
[2018-11-06 00:54] VITALS: BP 102/69
[2018-11-06] MEDS: METHADONE 10 MG TABLET PO SCH ×3 (01:50→18:11)
[2018-11-06] MEDS: POLYETHYLENE GLYCOL 17 GM PACKET PO SCH (08:06)
[2018-11-06] MEDS: ENOXAPARIN 40 MG/0.4 ML SQ SCH (08:06)
[2018-11-06] MEDS: NICOTINE 14MG/24 HR PATCH.TD24 TD SCH (08:06)
[2018-11-06 08:15] VITALS: BP 92/70
[2018-11-06] MEDS: CEFTRIAXONE PMX 2GM/50ML 50 ML IV SCH (15:55)
[2018-11-06 16:26] VITALS: BP 111/73
[2018-11-06 19:45] VITALS: BP 108/67
[2018-11-06] MEDS: TRAZODONE 50MG TABLET PO PRN (21:19)
[2018-11-06] MEDS: GABAPENTIN 300 MG CAPSULE PO PRN (21:19)
[2018-11-07 00:29] VITALS: BP 98/63
[2018-11-07] MEDS: METHADONE 10 MG TABLET PO SCH ×3 (01:57→18:02)
[2018-11-07] MEDS: ENOXAPARIN 40 MG/0.4 ML SQ SCH (08:30)
[2018-11-07 08:58] VITALS: BP 115/64
[2018-11-07] MEDS: POLYETHYLENE GLYCOL 17 GM PACKET PO SCH (09:00)
[2018-11-07] MEDS: NICOTINE 14MG/24 HR PATCH.TD24 TD SCH (09:30)
[2018-11-07 13:20] VITALS: BP 116/72
[2018-11-07] MEDS: CEFTRIAXONE PMX 2GM/50ML 50 ML IV SCH (16:23)
[2018-11-07] MEDS: DIPHENHYDRAMINE 25 MG CAPSULE PO PRN (19:56)
[2018-11-07 20:00] VITALS: BP 101/64
[2018-11-07] MEDS: GABAPENTIN 300 MG CAPSULE PO PRN (21:16)
[2018-11-07] MEDS: TRAZODONE 50MG TABLET PO PRN (21:16)
[2018-11-08 01:44] VITALS: BP 100/69
[2018-11-08] MEDS: METHADONE 10 MG TABLET PO SCH ×3 (01:55→17:39)
[2018-11-08 08:00] VITALS: BP 92/67
[2018-11-08] MEDS: ENOXAPARIN 40 MG/0.4 ML SQ SCH (08:30)
[2018-11-08] MEDS: POLYETHYLENE GLYCOL 17 GM PACKET PO SCH (09:00)
[2018-11-08] MEDS: NICOTINE 14MG/24 HR PATCH.TD24 TD SCH (09:30)
[2018-11-08 13:00] VITALS: BP 105/70
[2018-11-08] MEDS: CEFTRIAXONE PMX 2GM/50ML 50 ML IV SCH (16:57)
[2018-11-08] MEDS: DIPHENHYDRAMINE 25 MG CAPSULE PO PRN ×2 (17:39→21:49)
[2018-11-08 18:46] VITALS: BP 92/48
[2018-11-08] MEDS: GABAPENTIN 300 MG CAPSULE PO PRN (21:49)
[2018-11-08] MEDS: TRAZODONE 50MG TABLET PO PRN (21:55)
[2018-11-09 01:56] VITALS: BP_SYST 100; BP_SYST 126; BP_DIAS 66
[2018-11-09] MEDS: METHADONE 10 MG TABLET PO SCH ×3 (02:52→17:32)
[2018-11-09] MEDS: DIPHENHYDRAMINE 25 MG CAPSULE PO PRN ×2 (02:55→17:32)
[2018-11-09 04:36] LABS: CREATININE 0.92 mg/dL (0.55-1.02)
[2018-11-09 08:11] VITALS: BP 98/66
[2018-11-09] MEDS: ENOXAPARIN 40 MG/0.4 ML SQ SCH (08:30)
[2018-11-09] MEDS: POLYETHYLENE GLYCOL 17 GM PACKET PO SCH (09:00)
[2018-11-09] MEDS: NICOTINE 14MG/24 HR PATCH.TD24 TD SCH (09:27)
[2018-11-09 09:29] VITALS: BP 93/50
[2018-11-09 15:17] VITALS: BP 107/69
[2018-11-09] MEDS: CEFTRIAXONE PMX 2GM/50ML 50 ML IV SCH (17:32)
[2018-11-09 19:35] VITALS: BP 105/68
[2018-11-09] MEDS: TRAZODONE 50MG TABLET PO PRN (21:51)
[2018-11-09] MEDS: GABAPENTIN 300 MG CAPSULE PO PRN (21:51)
[2018-11-10] MEDS: METHADONE 10 MG TABLET PO SCH ×3 (02:22→18:29)
[2018-11-10 03:00] VITALS: BP 102/68
[2018-11-10] MEDS: ENOXAPARIN 40 MG/0.4 ML SQ SCH (09:38)
[2018-11-10] MEDS: POLYETHYLENE GLYCOL 17 GM PACKET PO SCH (09:38)
[2018-11-10] MEDS: NICOTINE 14MG/24 HR PATCH.TD24 TD SCH (09:38)
[2018-11-10 10:59] VITALS: BP 90/60
[2018-11-10 15:30] VITALS: BP 103/77
[2018-11-10] MEDS: DIPHENHYDRAMINE 25 MG CAPSULE PO PRN (16:36)
[2018-11-10] MEDS: CEFTRIAXONE PMX 2GM/50ML 50 ML IV SCH (16:37)
[2018-11-10] MEDS: ERGOCALCIFEROL 50,000 UNIT CAPSULE PO SCH (18:29)
[2018-11-10 19:59] VITALS: BP 100/60
[2018-11-10] MEDS: GABAPENTIN 300 MG CAPSULE PO PRN (20:29)
[2018-11-10] MEDS: TRAZODONE 50MG TABLET PO PRN (20:29)
[2018-11-10 23:07] VITALS: BP 98/54
[2018-11-11 01:28] VITALS: BP 100/54
[2018-11-11] MEDS: METHADONE 10 MG TABLET PO SCH ×3 (02:04→18:16)
[2018-11-11] MEDS: DIPHENHYDRAMINE 25 MG CAPSULE PO PRN ×3 (02:06→22:51)
[2018-11-11 05:28] LABS: BASOPHILS # (AUTO) 0.04 x10^3/uL (0-0.1); BASOPHILS % (AUTO) 1 % (0-1); EOSINOPHILS # (AUTO) 0.25 x10^3/uL (0-0.4); EOSINOPHILS % (AUTO) 3 % (1-7); LYMPHOCYTES # (AUTO) 2.16 x10^3/uL (1-3.4); LYMPHOCYTES % (AUTO) 29 % (22-44); MD NO; MEAN CORPUSCULAR HEMOGLOBIN 28.3 pg (27.0-34.8); MEAN CORPUSCULAR HGB CONC 34.1 g/dL (32.4-35.8); MEAN PLATELET VOLUME 7.7 fL (7.4-10.4); MONOCYTES # (AUTO) 0.43 x10^3/uL (0.2-0.8); MONOCYTES % (AUTO) 6 % (2-9); NEUTROPHILS # (AUTO) 4.67 x10^3/uL (1.8-6.8); NEUTROPHILS % (AUTO) 62 % (42-75); PLATELET COUNT 323 x10^3/uL (130-400); RED BLOOD COUNT 3.79 x10^6/uL (3.82-5.3); RED CELL DISTRIBUTION WIDTH 13.6 % (9.6-15.2)
[2018-11-11 05:40] LABS: CHLORIDE 105 mmol/L (98-107)
[2018-11-11 05:52] LABS: ALANINE AMINOTRANSFERASE 23 U/L (12-78); ALBUMIN 2.8 g/dL (3.4-5.0); ALKALINE PHOSPHATASE 173 U/L (45-117); ANION GAP 3 mmol/L (5-15); BILIRUBIN,TOTAL 0.5 mg/dL (0.2-1.0); CALCIUM 8.5 mg/dL (8.5-10.1); CREATININE 0.89 mg/dL (0.55-1.02); TOTAL PROTEIN 7.9 g/dL (6.4-8.2)
[2018-11-11 06:52] LABS: HCT (SEDRATE) 32.9 % (34.6-47.8)
[2018-11-11] MEDS: ENOXAPARIN 40 MG/0.4 ML SQ SCH (08:30)
[2018-11-11 08:45] VITALS: BP 99/64
[2018-11-11] MEDS: POLYETHYLENE GLYCOL 17 GM PACKET PO SCH (09:00)
[2018-11-11] MEDS: NICOTINE 14MG/24 HR PATCH.TD24 TD SCH (09:30)
[2018-11-11 14:00] VITALS: BP 110/75
[2018-11-11] MEDS: CEFTRIAXONE PMX 2GM/50ML 50 ML IV SCH (16:07)
[2018-11-11 19:06] VITALS: BP 112/74
[2018-11-11] MEDS: TRAZODONE 50MG TABLET PO PRN (20:37)
[2018-11-11] MEDS: GABAPENTIN 300 MG CAPSULE PO PRN (20:37)
[2018-11-12] MEDS: METHADONE 10 MG TABLET PO SCH ×3 (01:37→17:31)
[2018-11-12 01:41] VITALS: BP 93/62
[2018-11-12 07:35] VITALS: BP 94/66
[2018-11-12] MEDS: ENOXAPARIN 40 MG/0.4 ML SQ SCH (08:30)
[2018-11-12] MEDS: POLYETHYLENE GLYCOL 17 GM PACKET PO SCH (09:00)
[2018-11-12] MEDS: NICOTINE 14MG/24 HR PATCH.TD24 TD SCH (09:26)
[2018-11-12] MEDS: DIPHENHYDRAMINE 25 MG CAPSULE PO PRN (15:34)
[2018-11-12 15:37] VITALS: BP 96/62
[2018-11-12] MEDS: CEFTRIAXONE PMX 2GM/50ML 50 ML IV SCH (16:36)
[2018-11-12] MEDS: GABAPENTIN 300 MG CAPSULE PO PRN (20:15)
[2018-11-12] MEDS: TRAZODONE 50MG TABLET PO PRN (20:15)
[2018-11-12 21:07] VITALS: BP 101/64
[2018-11-13 02:04] VITALS: BP 101/62
[2018-11-13] MEDS: METHADONE 10 MG TABLET PO SCH ×3 (02:07→17:39)
[2018-11-13 08:10] VITALS: BP 91/62
[2018-11-13] MEDS: ENOXAPARIN 40 MG/0.4 ML SQ SCH (08:30)
[2018-11-13] MEDS: POLYETHYLENE GLYCOL 17 GM PACKET PO SCH (09:00)
[2018-11-13] MEDS: NICOTINE 14MG/24 HR PATCH.TD24 TD SCH (09:30)
[2018-11-13] MEDS: DIPHENHYDRAMINE 25 MG CAPSULE PO PRN ×2 (15:38→21:19)
[2018-11-13] MEDS: CEFTRIAXONE PMX 2GM/50ML 50 ML IV SCH (15:57)
[2018-11-13 17:41] VITALS: BP 104/71
[2018-11-13] MEDS: GABAPENTIN 300 MG CAPSULE PO PRN (21:19)
[2018-11-13] MEDS: TRAZODONE 50MG TABLET PO PRN ×2 (21:20→21:25)
[2018-11-13] MEDS: ACETAMINOPHEN 500 MG TABLET PO PRN (21:24)
[2018-11-14] MEDS: METHADONE 10 MG TABLET PO SCH ×3 (02:25→17:36)
[2018-11-14 02:28] VITALS: BP 98/64
[2018-11-14 08:00] VITALS: BP 83/50
[2018-11-14] MEDS: ENOXAPARIN 40 MG/0.4 ML SQ SCH (08:30)
[2018-11-14] MEDS: POLYETHYLENE GLYCOL 17 GM PACKET PO SCH (09:00)
[2018-11-14] MEDS: NICOTINE 14MG/24 HR PATCH.TD24 TD SCH (09:08)
[2018-11-14] MEDS: ACETAMINOPHEN 500 MG TABLET PO PRN (11:16)
[2018-11-14] MEDS ORDERED: DIPHENHYDRAMINE/ZINC CRM 2%, 30GM TP PRN (12:30)
[2018-11-14 15:50] VITALS: BP 94/64
[2018-11-14] MEDS: DIPHENHYDRAMINE 25 MG CAPSULE PO PRN (16:44)
[2018-11-14] MEDS: CEFTRIAXONE PMX 2GM/50ML 50 ML IV SCH (17:04)
[2018-11-14 19:30] VITALS: BP 95/64
[2018-11-14] MEDS: TRAZODONE 50MG TABLET PO PRN (21:51)
[2018-11-14] MEDS: GABAPENTIN 300 MG CAPSULE PO PRN (21:51)
[2018-11-15 00:53] VITALS: BP 90/57
[2018-11-15] MEDS: METHADONE 10 MG TABLET PO SCH ×3 (02:24→17:24)
[2018-11-15 08:08] VITALS: BP 100/64
[2018-11-15] MEDS: NICOTINE 14MG/24 HR PATCH.TD24 TD SCH (08:08)
[2018-11-15] MEDS: ENOXAPARIN 40 MG/0.4 ML SQ SCH (08:08)
[2018-11-15] MEDS: POLYETHYLENE GLYCOL 17 GM PACKET PO SCH (08:08)
[2018-11-15] MEDS: ACETAMINOPHEN 500 MG TABLET PO PRN (08:49)
[2018-11-15] MEDS ORDERED: GABA300C10 PO (09:35)
[2018-11-15] MEDS ORDERED: ACET500T71 PO (09:35)
[2018-11-15] MEDS ORDERED: ERGO500017 PO (09:35)
[2018-11-15] MEDS ORDERED: CEPH-376 PO (09:38)
[2018-11-15] MEDS ORDERED: ORAJEL 7GM TUBE MM PRN (10:00)
[2018-11-15 13:08] VITALS: BP 102/69
[2018-11-15] MEDS: DIPHENHYDRAMINE 25 MG CAPSULE PO PRN (15:59)
[2018-11-15] MEDS: CEFTRIAXONE PMX 2GM/50ML 50 ML IV SCH (17:24)
[2018-11-15] MEDS ORDERED: FLU VAC QS18-19(4YR UP)CEL/PF 0.5ML IM-VACC ONE (17:30)
== END 2018-11-15 19:00 | disposition home or self-care (01) | DRG 871 ==
LOC: ED 03:28 → EDIP 06:31 → 4WST 08:28
PROVIDERS: ADMIT Internal Medicine; ATTEND Internal Medicine
PROC: 0W9B3ZZ Drainage of Left Pleural Cavity, Percutaneous Approach (ICD-10-PCS; principal; 2018-10-20)
DX: A40.8 Other streptococcal sepsis (principal); I26.90 Septic pulmonary embolism without acute cor pulmonale; I33.0 Acute and subacute infective endocarditis; J18.9 Pneumonia, unspecified organism; J91.8 Pleural effusion in other conditions classified elsewhere; R17 Unspecified jaundice; D63.8 Anemia in other chronic diseases classified elsewhere; E55.9 Vitamin D deficiency, unspecified; E87.6 Hypokalemia; F11.10 Opioid abuse, uncomplicated; F17.210 Nicotine dependence, cigarettes, uncomplicated; G47.00 Insomnia, unspecified; I07.1 Rheumatic tricuspid insufficiency; K59.00 Constipation, unspecified; L29.9 Pruritus, unspecified; Z56.0 Unemployment, unspecified; Z87.820 Personal history of traumatic brain injury; F15.10 Other stimulant abuse, uncomplicated; F41.9 Anxiety disorder, unspecified; R63.0 Anorexia; Z68.26 Body mass index [BMI] 26.0-26.9, adult
CPT/HCPCS: 32555; 36415; 82945; 84145; 87400; 99285; J3490; J7613; 71045; 72157; 72158; 80048; 80053; 80170; 80307; 81003; 81025; 82040; 82306; 82565; 83605; 83615; 83735; 84100; 84484; 85025; 85651; 86140; 87040; 87070; 87075; 87077; 87181; 87205; 89051; 90674; 93005; 93306; 96372; 96374; A9585; G0378; J0696; J1650; J1885; J2405; J2543; J3370; J1580; J7030; J7040; J7050; Q0163

== ENCOUNTER 2019-02-25 00:33 | Inpatient (IN) | payer MEDICAID, OTHER ==
[~2019-02-25] VITALS: Ht 162.6 cm; Wt 62.2 kg
[~2019-02-25 00:33] MED LIST: ACET500T71 PO; CEPH-376 PO; ERGO500017 PO; GABA300C10 PO
[2019-02-25] MEDS ORDERED: SODIUM CHLORIDE 0.9% 1,000ML IVBOLUS ONE ×2 (01:00→02:30)
[2019-02-25] MEDS ORDERED: ONDANSETRON 2MG/ML, 2ML IVPush ONE (01:00)
[2019-02-25] MEDS ORDERED: SODIUM CHLORIDE FLUSH 10ML SYR IVF ONE (01:00)
[2019-02-25] MEDS ORDERED: ACETAMINOPHEN 325 MG TABLET PO ONE (01:00)
[2019-02-25] MEDS ORDERED: KETOROLAC 30 MG/1 ML IVPush ONE (01:00)
[2019-02-25] MEDS ORDERED: CEFTRIAXONE PMX 1GM/50ML 50 ML IVPB ONE (01:30)
[2019-02-25] MEDS ORDERED: AZITHROMYCIN 500 MG in SODIUM CHLORIDE 0.9% 250 ML IV ONE (01:30)
[2019-02-25] MEDS ORDERED: VANCOMYCIN PER PHARMACY IV ONE (01:30)
--- NOTE | 2019-02-25 01:30 | NUR ---
PT CO INCREASING CHEST PAIN/SOB X SEVERAL DAYS FOLLOWING DC FROM [facility] FOR ENDOCARDITIS. PT REPORTS UNABLE TO FULLFILL FOLLOW UP APPOINTMENTS AND NON-COMPLIANT WITH ABX RX. +FEVER; PT PWD. MULTIPLE ATTEMPTS TO GAIN IV ACCESS AND LAB DRAW FOR BC IN PROGRESS. BP/SPO2/ECG MONITORING IN PLACE. SINUS TACH ON MONITOR.
[2019-02-25] MEDS ORDERED: ACETAMINOPHEN 325 MG TABLET ONE ×2 (01:52→12:40)
[2019-02-25] MEDS ORDERED: ONDANSETRON 2MG/ML, 2ML ONE (01:52)
[2019-02-25] MEDS ORDERED: KETOROLAC 30 MG/1 ML ONE (01:52)
[2019-02-25] MEDS ORDERED: CEFTRIAXONE PMX 1GM/50ML 50 ML ONE (01:52)
--- NOTE | 2019-02-25 01:55 | NUR ---
BC X2 DRAWN. PT MEDICATED PER EMAR
[2019-02-25] MEDS ORDERED: VANCOMYCIN 1,200 MG in SODIUM CHLORIDE 0.9% 250 ML IV ONE (02:00)
[2019-02-25 02:02] LABS: MEAN CORPUSCULAR HEMOGLOBIN 24.9 pg (27.0-34.8); MEAN CORPUSCULAR HGB CONC 32.3 g/dL (32.4-35.8); MEAN CORPUSCULAR VOLUME 77.1 fL (80-100); MEAN PLATELET VOLUME 9.2 fL (7.4-10.4); PLATELET COUNT 257 x10^3/uL (130-400); RED BLOOD COUNT 3.46 x10^6/uL (3.82-5.3); RED CELL DISTRIBUTION WIDTH 16.8 % (9.6-15.2)
[2019-02-25 02:15] LABS: ALANINE AMINOTRANSFERASE 47 U/L (12-78); ALBUMIN 2.1 g/dL (3.4-5.0); ANION GAP 9 mmol/L (5-15); CHLORIDE 99 mmol/L (98-107); CREATININE 0.89 mg/dL (0.55-1.02)
[2019-02-25 02:20] LABS: ALKALINE PHOSPHATASE 553 U/L (45-117); BILIRUBIN,TOTAL 1.5 mg/dL (0.2-1.0); TOTAL PROTEIN 6.9 g/dL (6.4-8.2)
--- NOTE | 2019-02-25 02:22 | NUR ---
NO S/S OF ABX RXN NOTED. SECOND OF THREE LITER NS HUNG. SECOND ABX HUNG.
[2019-02-25] MEDS ORDERED: BISACODYL 10 MG SUPP PR PRN (02:30)
[2019-02-25] MEDS ORDERED: POLYETHYLENE GLYCOL 17 GM PACKET PO PRN (02:30)
[2019-02-25] MEDS ORDERED: hydrALAzine 20 MG/ML, 1ML IVPush PRN (02:30)
[2019-02-25] MEDS ORDERED: PROMETHAZINE 25 MG/ML, 1ML IM PRN (02:30)
[2019-02-25] MEDS ORDERED: CEFTRIAXONE PMX 1GM/50ML 50 ML IV ONE (02:30)
[2019-02-25 02:47] LABS: MD YES
[2019-02-25 02:49] LABS: ANISOCYTOSIS 1+; LYMPH#(MANUAL) 2.57 x10^3/uL (1-3.4); LYMPHS% (MANUAL) 9 % (22-44); MICROCYTOSIS 1+; MONOS#(MANUAL) 1.43 x10^3/uL (0.3-2.7); MONOS% (MANUAL) 5 % (2-9); SEG#(MANUAL) 24.51 x10^3/uL (1.8-6.8); SEGS% (MANUAL) 86 % (42-75)
[2019-02-25 02:50] LABS: <PLATELET ESTIMATE> ADEQUATE; OVALOCYTES 1+; POLYCHROMASIA 1+
[2019-02-25 02:51] LABS: <PLT MORPHOLOGY> NORMAL PLT MORPH
[2019-02-25 02:57] LABS: FREE T4 (FREE THYROXINE) 1.7 ng/dL (0.76-1.46)
[2019-02-25 03:07] LABS: HEMOGLOBIN A1C 6.3 % (4.2-6.3)
[2019-02-25] MEDS: SODIUM CHLORIDE 0.9% 1,000 ML IV SCH ×2 (03:10→05:26)
--- NOTE | 2019-02-25 03:13 | NUR ---
THIRD OF THREE LITERS HUNG. PT HYPOTENSIVE, SBP 85. PWD; DENIES DIZZINESS/NAUSEA. IMPROVEMENT IN HR NOTED, HR 100. TO OBSERVE BP WITH THIRD LITER. BEDSIDE REPORT TO ZOHREH HURTADO ERP UPDATED
--- NOTE | 2019-02-25 03:35 | NUR ---
LATE NOTE ENTRY FOR 0313: Recieved bedside report from ZOHREH Corado. All questions answered. NADN. Assuming care of pt. Pt requesting food. Provided pt snacks. Pt appreciative. ED MD aware of pt's heart rate and blood pressure. Pt connected to NIBP, continous pulse ox monitor, and live in companion. Bedside rail up for safety measures. Call light within reach. No other needs expressed at this time.
[2019-02-25] MEDS ORDERED: HEPARIN 5,000 UNITS/ML, 1ML ONE (04:46)
[2019-02-25] MEDS: HEPARIN 5,000 UNITS/ML, 1ML SQ SCH ×3 (05:11→18:34)
--- NOTE | 2019-02-25 05:31 | NUR ---
Provided medications per EMAR. Pt appreciative. NADN. Pt resting on gurney connected to NIBP, continous pulse ox monitor, and cafeteria monitor. Bedrail up for safety measures. Call light within reach. No other needs expressed at this time. Pt states, "My girlfriend Cameron is suppose to be coming here, will you let her back when she is here?" EDRN stated, "Yes."
[2019-02-25 06:43] LABS: MICROSCOPIC NOT IND
[2019-02-25 06:46] LABS: CULTURE INDICATED? NO
[2019-02-25] MEDS: IRON SUCROSE COMPLEX 100MG/5ML IV SCH (08:25)
--- NOTE | 2019-02-25 08:46 | NUR ---
JOSELYN RN NOTE: MEALTRAY GIVEN TO PATIENT
--- NOTE | 2019-02-25 10:33 | NUR ---
Pt resting on gurney in room. NADN. No needs expressed. Call light within reach.
--- NOTE | 2019-02-25 12:28 | NUR ---
Pt provided hospital bed. Pt appreciative. Pt provided lunch tray. Pt appreciative. Pt's girlfriend Cameron at bedside. Pt and Cameron asking EDRN about "withdrawal medications from heroin...is she going to be prescribed Methadone while she is here?". ED RN to notify admitting MD of pt's request.
[2019-02-25] MEDS: ACETAMINOPHEN 325 MG TABLET PO PRN ×2 (12:44→21:21)
--- NOTE | 2019-02-25 13:22 | NUR ---
REPORT FROM GENESIS BRUNER. PT RESTING ON HOSPITAL BED. FAMILY AT BEDSIDE.
--- NOTE | 2019-02-25 14:24 | NUR ---
MEDICATED FOR PAIN PER ORDER. PT ON CP MONIOTRS. AWAITING BED FOR ADMISSION. ALL CONCERNS ADRESSED.
--- NOTE | 2019-02-25 15:56 | NUR ---
PT RESTING ON BED WITH EYES CLOSED. RESP EVEN AND UNLABORED. CP MONITORS IN PLACE. NADN.
[2019-02-25] MEDS ORDERED: PHARMACOKINETIC MONITORING MC PRN (17:00)
[2019-02-25] MEDS ORDERED: VANCOMYCIN PER PHARMACY MC PRN (17:00)
[2019-02-25] MEDS: VANCOMYCIN 1,200 MG in SODIUM CHLORIDE 0.9% 250 ML IV SCH (17:02)
--- NOTE | 2019-02-25 17:12 | NUR ---
report to Jayda BRUNER.
[2019-02-25 17:47] VITALS: BP 94/62
[2019-02-25 21:23] VITALS: BP 108/70
[2019-02-25] MEDS: morphine SULFATE 10 MG/ML, 1ML IVPush PRN (21:44)
[2019-02-26] MEDS ORDERED: AZITHROMYCIN 500 MG in SODIUM CHLORIDE 0.9% 250 ML IV SCH (01:00)
[2019-02-26] MEDS: CEFTRIAXONE PMX 2GM/50ML 50 ML IV SCH (01:33)
[2019-02-26 01:41] VITALS: BP 102/71
[2019-02-26] MEDS: HEPARIN 5,000 UNITS/ML, 1ML SQ SCH ×3 (02:30→18:30)
[2019-02-26] MEDS: morphine SULFATE 10 MG/ML, 1ML IVPush PRN ×2 (04:15→07:43)
[2019-02-26] MEDS ORDERED: DIPHENHYDRAMINE 25 MG CAPSULE PO ONE (04:30)
[2019-02-26] MEDS: VANCOMYCIN 1,200 MG in SODIUM CHLORIDE 0.9% 250 ML IV SCH (04:44)
[2019-02-26 06:17] LABS: MEAN CORPUSCULAR HEMOGLOBIN 24.7 pg (27.0-34.8); MEAN PLATELET VOLUME 8.4 fL (7.4-10.4); PLATELET COUNT 323 x10^3/uL (130-400); RED BLOOD COUNT 3.07 x10^6/uL (3.82-5.3); RED CELL DISTRIBUTION WIDTH 16.8 % (9.6-15.2)
[2019-02-26 06:39] LABS: ALANINE AMINOTRANSFERASE 65 U/L (12-78); ALBUMIN 1.7 g/dL (3.4-5.0); ANION GAP 8 mmol/L (5-15); CALCIUM 7.4 mg/dL (8.5-10.1); CHLORIDE 108 mmol/L (98-107)
[2019-02-26 06:41] LABS: ALKALINE PHOSPHATASE 675 U/L (45-117); CHOL/HDL RATIO 6.2; CHOLESTEROL, TOTAL 80 mg/dL (140-239); HDL CHOL % 16 % (28-40); HDL CHOLESTEROL (DIRECT) 13 mg/dL (40-60); LDL CHOLESTEROL,CALCULATED 48 mg/dL (54-169); LDL/HDL RATIO 3.7 (0.5-3.0); TRIGLYCERIDES 93 mg/dL (50-200); VLDL CHOLESTEROL 19 mg/dL (0-25)
[2019-02-26 06:48] LABS: ANISOCYTOSIS 1+; BASOPHILS # (AUTO) 0.02 x10^3/uL (0-0.1); BASOPHILS % (AUTO) 0 % (0-1); EOSINOPHILS # (AUTO) 0.01 x10^3/uL (0-0.4); EOSINOPHILS % (AUTO) 0 % (1-7); HYPOCHROMIA 1+; LYMPHOCYTES % (AUTO) 9 % (22-44); MD MORPH REVIEW ONLY; MICROCYTOSIS 1+; MONOCYTES # (AUTO) 0.87 x10^3/uL (0.2-0.8); MONOCYTES % (AUTO) 4 % (2-9); NEUTROPHILS # (AUTO) 20.39 x10^3/uL (1.8-6.8); NEUTROPHILS % (AUTO) 87 % (42-75); OVALOCYTES 1+
[2019-02-26 06:49] LABS: <PLATELET ESTIMATE> ADEQUATE; <PLT MORPHOLOGY> NORMAL PLT MORPH
[2019-02-26 07:39] VITALS: BP 109/76
[2019-02-26] MEDS: IRON SUCROSE COMPLEX 100MG/5ML IV SCH (08:14)
[2019-02-26] MEDS: KETOROLAC 30 MG/1 ML IVPush SCH ×2 (11:15→17:53)
[2019-02-26 11:19] LABS: AMPHETAMINE SCREEN, URINE Negative (Negative); BARBITURATE SCREEN, URINE Negative (Negative); BENZODIAZEPINE SCREEN, URINE Negative (Negative); CANNABINOID SCREEN, URINE Negative (Negative); COCAINE SCREEN, URINE Negative (Negative); METHADONE SCREEN, URINE Negative (Negative); OPIATE SCREEN, URINE Positive (Negative)
[2019-02-26] MEDS ORDERED: METHADONE 10 MG TABLET ONE ×2 (11:52→15:43)
[2019-02-26] MEDS ORDERED: METHADONE 5 MG TABLET PO ONE (12:00)
[2019-02-26] MEDS ORDERED: DIPHENHYDRAMINE 25 MG CAPSULE PO PRN (13:00)
[2019-02-26 15:35] VITALS: BP 104/68
[2019-02-26 15:36] LABS: HCT (SEDRATE) 23.7 % (34.6-47.8)
[2019-02-26] MEDS: METHADONE 5 MG TABLET PO SCH ×2 (15:45→21:07)
[2019-02-26 18:30] VITALS: BP 96/61
[2019-02-27] MEDS: CEFTRIAXONE PMX 2GM/50ML 50 ML IV SCH (00:21)
[2019-02-27] MEDS: KETOROLAC 30 MG/1 ML IVPush SCH ×5 (00:31→23:54)
[2019-02-27] MEDS: morphine SULFATE 10 MG/ML, 1ML IVPush PRN (01:14)
[2019-02-27] MEDS: HEPARIN 5,000 UNITS/ML, 1ML SQ SCH ×3 (01:17→17:32)
[2019-02-27] MEDS: VANCOMYCIN 1,200 MG in SODIUM CHLORIDE 0.9% 250 ML IV SCH (01:51)
[2019-02-27 02:49] VITALS: BP 101/65
[2019-02-27 08:00] VITALS: BP 111/65
[2019-02-27] MEDS ORDERED: METHADONE 10 MG TABLET ONE (08:51)
[2019-02-27] MEDS: FERROUS SULFATE 325 MG TABLET PO SCH ×3 (08:59→17:00)
[2019-02-27] MEDS: METHADONE 5 MG TABLET PO PRN ×2 (08:59→17:43)
[2019-02-27] MEDS: IRON SUCROSE COMPLEX 100MG/5ML IV SCH (08:59)
[2019-02-27] MEDS: VANCOMYCIN 1,400 MG in SODIUM CHLORIDE 0.9% 250 ML IV SCH ×2 (12:00→23:54)
[2019-02-27] MEDS: ONDANSETRON 2MG/ML, 2ML IVPush PRN (12:05)
[2019-02-27 14:33] VITALS: BP 114/68
[2019-02-27 18:32] VITALS: BP 93/64
[2019-02-28] MEDS: METHADONE 5 MG TABLET PO PRN ×3 (01:21→22:20)
[2019-02-28] MEDS: CEFTRIAXONE PMX 2GM/50ML 50 ML IV SCH (01:46)
[2019-02-28] MEDS: HEPARIN 5,000 UNITS/ML, 1ML SQ SCH ×3 (01:50→18:30)
[2019-02-28 02:12] VITALS: BP 94/61
[2019-02-28] MEDS: KETOROLAC 30 MG/1 ML IVPush SCH ×3 (05:53→19:52)
[2019-02-28 06:41] LABS: MEAN CORPUSCULAR HEMOGLOBIN 24.7 pg (27.0-34.8); MEAN CORPUSCULAR HGB CONC 32.1 g/dL (32.4-35.8); MEAN CORPUSCULAR VOLUME 76.9 fL (80-100); MEAN PLATELET VOLUME 7.9 fL (7.4-10.4); PLATELET COUNT 293 x10^3/uL (130-400); RED BLOOD COUNT 2.83 x10^6/uL (3.82-5.3); RED CELL DISTRIBUTION WIDTH 17.1 % (9.6-15.2)
[2019-02-28 06:50] LABS: ALBUMIN 1.5 g/dL (3.4-5.0); ANION GAP 6 mmol/L (5-15); CALCIUM 7.9 mg/dL (8.5-10.1); CHLORIDE 110 mmol/L (98-107)
[2019-02-28 06:54] LABS: ALANINE AMINOTRANSFERASE 81 U/L (12-78); ALKALINE PHOSPHATASE 519 U/L (45-117); BILIRUBIN,TOTAL 0.7 mg/dL (0.2-1.0); CREATININE 0.82 mg/dL (0.55-1.02); TOTAL PROTEIN 5.7 g/dL (6.4-8.2)
[2019-02-28 07:06] LABS: BASOPHILS # (AUTO) 0.06 x10^3/uL (0-0.1); BASOPHILS % (AUTO) 1 % (0-1); EOSINOPHILS # (AUTO) 0.11 x10^3/uL (0-0.4); EOSINOPHILS % (AUTO) 1 % (1-7); LYMPHOCYTES # (AUTO) 2.25 x10^3/uL (1-3.4); LYMPHOCYTES % (AUTO) 19 % (22-44); MD SCAN; MONOCYTES # (AUTO) 0.77 x10^3/uL (0.2-0.8); MONOCYTES % (AUTO) 6 % (2-9); NEUTROPHILS % (AUTO) 74 % (42-75)
[2019-02-28 08:18] VITALS: BP 98/67
[2019-02-28] MEDS: FERROUS SULFATE 325 MG TABLET PO SCH (08:44)
[2019-02-28] MEDS: ONDANSETRON ODT 4 MG PO PRN (09:01)
[2019-02-28] MEDS: MULTIVITAMINS/MINERALS TABLET PO SCH (10:00)
[2019-02-28] MEDS: MULTIVITAMINS WITH IRON TABLET PO SCH (10:30)
[2019-02-28 12:51] VITALS: BP 111/76
[2019-02-28] MEDS ORDERED: FENTANYL PF 100 MCG/2ML IV PRN (15:00)
[2019-02-28] MEDS ORDERED: HYDROmorphone 2 MG/ML, 1ML IVPush PRN (15:00)
[2019-02-28] MEDS ORDERED: PROMETHAZINE 25 MG/ML, 1ML IV PRN (15:00)
[2019-02-28] MEDS ORDERED: OXYcodone 5 MG/5 ML ORAL.SOL UDC PO PRN (15:00)
[2019-02-28] MEDS ORDERED: ONDANSETRON 2MG/ML, 2ML IV PRN (15:00)
[2019-02-28] MEDS ORDERED: MEPERIDINE/PF 25MG/0.5ML IVPush PRN (15:00)
[2019-02-28] MEDS ORDERED: hydrALAzine 20 MG/ML, 1ML IV PRN (15:00)
[2019-02-28] MEDS ORDERED: LABETALOL 5MG/ML, 20ML IV PRN (15:00)
[2019-02-28] MEDS ORDERED: FENTANYL PF 250 MCG/5ML ONE (15:17)
[2019-02-28] MEDS ORDERED: LIDOCAINE 1%, 20ML ONE (15:38)
[2019-02-28] MEDS ORDERED: EPINEPHRINE 1 MG/ML, 1ML ONE (15:38)
[2019-02-28] MEDS ORDERED: BUPIVACAINE/PF 0.25% ONE (15:38)
[2019-02-28] MEDS ORDERED: MIDAZOLAM 1 MG/ML, 2ML ONE (15:57)
[2019-02-28] MEDS ORDERED: DEXAMETHASONE 4 MG/ML, 1ML ONE (16:12)
[2019-02-28] MEDS ORDERED: SUCCINYLCHOLINE 20 MG/ML, 10ML ONE (16:12)
[2019-02-28] MEDS ORDERED: PROPOFOL 10 MG/ML, 20ML ONE (16:12)
[2019-02-28] MEDS ORDERED: LIDOCAINE 1%, 20ML INFIL ONE (16:19)
[2019-02-28] MEDS ORDERED: ONDANSETRON 2MG/ML, 2ML ONE (16:20)
[2019-02-28] MEDS ORDERED: BUPIVACAINE/PF 0.25% INFIL ONE (16:20)
[2019-02-28] MEDS ORDERED: OXYcodone 5 MG/5 ML ORAL.SOL UDC ONE (16:45)
[2019-02-28] MEDS: CHLORHEXIDINE 15 ML UDC MM SCH (19:52)
[2019-02-28 20:20] VITALS: BP 112/79
[2019-02-28] MEDS ORDERED: METHADONE 10 MG TABLET ONE (22:17)
[2019-03-01 00:53] VITALS: BP 103/69
[2019-03-01] MEDS: HEPARIN 5,000 UNITS/ML, 1ML SQ SCH ×3 (02:36→18:29)
[2019-03-01] MEDS: KETOROLAC 30 MG/1 ML IVPush SCH ×4 (02:41→19:52)
[2019-03-01] MEDS: morphine SULFATE 10 MG/ML, 1ML IVPush PRN ×2 (02:41→20:37)
[2019-03-01 06:51] LABS: ALBUMIN 1.8 g/dL (3.4-5.0); ANION GAP 8 mmol/L (5-15); CALCIUM 8.6 mg/dL (8.5-10.1); CHLORIDE 109 mmol/L (98-107)
[2019-03-01 06:54] LABS: BASOPHILS # (AUTO) 0.01 x10^3/uL (0-0.1); BASOPHILS % (AUTO) 0 % (0-1); EOSINOPHILS % (AUTO) 0 % (1-7); LYMPHOCYTES # (AUTO) 1.25 x10^3/uL (1-3.4); LYMPHOCYTES % (AUTO) 8 % (22-44); MD NO; MEAN CORPUSCULAR HEMOGLOBIN 25.2 pg (27.0-34.8); MEAN CORPUSCULAR HGB CONC 32.4 g/dL (32.4-35.8); MEAN CORPUSCULAR VOLUME 77.8 fL (80-100); MONOCYTES # (AUTO) 0.43 x10^3/uL (0.2-0.8); MONOCYTES % (AUTO) 3 % (2-9); NEUTROPHILS # (AUTO) 13.61 x10^3/uL (1.8-6.8); NEUTROPHILS % (AUTO) 89 % (42-75); PLATELET COUNT 381 x10^3/uL (130-400); RED BLOOD COUNT 3.34 x10^6/uL (3.82-5.3); RED CELL DISTRIBUTION WIDTH 17.3 % (9.6-15.2)
[2019-03-01 06:55] LABS: ALANINE AMINOTRANSFERASE 88 U/L (12-78); ALKALINE PHOSPHATASE 663 U/L (45-117); BILIRUBIN,TOTAL 0.6 mg/dL (0.2-1.0); CREATININE 0.88 mg/dL (0.55-1.02); TOTAL PROTEIN 6.8 g/dL (6.4-8.2)
[2019-03-01 08:00] VITALS: BP 108/73
[2019-03-01] MEDS: MULTIVITAMINS/MINERALS TABLET PO SCH (09:00)
[2019-03-01] MEDS: METHADONE 5 MG TABLET PO PRN ×2 (09:08→22:24)
[2019-03-01] MEDS: MULTIVITAMINS WITH IRON TABLET PO SCH (09:08)
[2019-03-01] MEDS: CHLORHEXIDINE 15 ML UDC MM SCH ×2 (10:29→19:52)
[2019-03-01 15:45] VITALS: BP_SYST 135; BP_SYST 97; BP_DIAS 66; BP_DIAS 81
[2019-03-01] MEDS: CEFTRIAXONE PMX 2GM/50ML 50 ML IV SCH (16:58)
[2019-03-01 19:32] VITALS: BP 108/76
[2019-03-01 22:21] VITALS: BP 115/80
[2019-03-01] MEDS ORDERED: METHADONE 10 MG TABLET ONE (22:22)
[2019-03-02 00:53] VITALS: BP 119/85
[2019-03-02] MEDS: KETOROLAC 30 MG/1 ML IVPush SCH ×4 (01:40→19:00)
[2019-03-02] MEDS: HEPARIN 5,000 UNITS/ML, 1ML SQ SCH ×3 (01:40→18:30)
[2019-03-02 06:36] VITALS: BP 99/65
[2019-03-02] MEDS: MULTIVITAMINS/MINERALS TABLET PO SCH (08:45)
[2019-03-02] MEDS: MULTIVITAMINS WITH IRON TABLET PO SCH (08:45)
[2019-03-02] MEDS ORDERED: METHADONE 10 MG TABLET ONE (09:21)
[2019-03-02] MEDS: METHADONE 5 MG TABLET PO PRN ×2 (09:24→17:31)
[2019-03-02] MEDS: CHLORHEXIDINE 15 ML UDC MM SCH ×2 (09:52→22:48)
[2019-03-02 14:00] VITALS: BP 96/74
[2019-03-02] MEDS: CEFTRIAXONE PMX 2GM/50ML 50 ML IV SCH (17:30)
[2019-03-02] MEDS: DOCUSATE 100 MG CAPSULE PO PRN (17:38)
[2019-03-02 19:50] VITALS: BP 106/74
[2019-03-02] MEDS: morphine SULFATE 10 MG/ML, 1ML IVPush PRN (22:54)
[2019-03-03] MEDS: ACETAMINOPHEN 325 MG TABLET PO PRN (00:06)
[2019-03-03] MEDS: KETOROLAC 30 MG/1 ML IVPush SCH ×2 (01:00→05:29)
[2019-03-03 02:03] VITALS: BP 106/71
[2019-03-03] MEDS: HEPARIN 5,000 UNITS/ML, 1ML SQ SCH ×3 (02:30→18:58)
[2019-03-03 06:32] LABS: MEAN CORPUSCULAR HEMOGLOBIN 25.5 pg (27.0-34.8); MEAN CORPUSCULAR HGB CONC 32.2 g/dL (32.4-35.8); MEAN PLATELET VOLUME 7.3 fL (7.4-10.4); PLATELET COUNT 429 x10^3/uL (130-400); RED BLOOD COUNT 3.26 x10^6/uL (3.82-5.3)
[2019-03-03 06:43] LABS: ALANINE AMINOTRANSFERASE 67 U/L (12-78); ALBUMIN 1.8 g/dL (3.4-5.0); ANION GAP 8 mmol/L (5-15); CALCIUM 8.2 mg/dL (8.5-10.1); CHLORIDE 106 mmol/L (98-107); CREATININE 0.89 mg/dL (0.55-1.02)
[2019-03-03 06:46] LABS: ALKALINE PHOSPHATASE 562 U/L (45-117); BILIRUBIN,TOTAL 0.5 mg/dL (0.2-1.0)
[2019-03-03 07:05] LABS: BASOPHILS # (AUTO) 0.09 x10^3/uL (0-0.1); BASOPHILS % (AUTO) 0 % (0-1); EOSINOPHILS # (AUTO) 0.06 x10^3/uL (0-0.4); EOSINOPHILS % (AUTO) 0 % (1-7); LYMPHOCYTES # (AUTO) 2.78 x10^3/uL (1-3.4); LYMPHOCYTES % (AUTO) 14 % (22-44); MD SCAN; MONOCYTES # (AUTO) 0.81 x10^3/uL (0.2-0.8); MONOCYTES % (AUTO) 4 % (2-9); NEUTROPHILS % (AUTO) 81 % (42-75)
[2019-03-03] MEDS: MULTIVITAMINS WITH IRON TABLET PO SCH (08:23)
[2019-03-03] MEDS: MULTIVITAMINS/MINERALS TABLET PO SCH (08:23)
[2019-03-03] MEDS: METHADONE 5 MG TABLET PO SCH ×3 (08:23→20:52)
[2019-03-03] MEDS: DOCUSATE 100 MG CAPSULE PO PRN (08:23)
[2019-03-03] MEDS: CHLORHEXIDINE 15 ML UDC MM SCH ×2 (09:45→20:51)
[2019-03-03] MEDS: ONDANSETRON 2MG/ML, 2ML IVPush PRN (09:49)
[2019-03-03 09:53] VITALS: BP 104/66
[2019-03-03 13:20] VITALS: BP 103/67
[2019-03-03] MEDS: CEFTRIAXONE PMX 2GM/50ML 50 ML IV SCH (16:57)
[2019-03-03 20:00] VITALS: BP 101/68
[2019-03-03] MEDS ORDERED: METHADONE 10 MG TABLET ONE (20:49)
[2019-03-04] MEDS: HEPARIN 5,000 UNITS/ML, 1ML SQ SCH ×3 (02:56→16:34)
[2019-03-04 03:02] VITALS: BP 90/60
[2019-03-04] MEDS: ACETAMINOPHEN 325 MG TABLET PO PRN (03:56)
[2019-03-04 06:23] VITALS: BP 91/62
[2019-03-04] MEDS: METHADONE 5 MG TABLET PO SCH ×3 (09:00→20:36)
[2019-03-04] MEDS: MULTIVITAMINS/MINERALS TABLET PO SCH (09:00)
[2019-03-04] MEDS ORDERED: METHADONE 10 MG TABLET ONE ×2 (09:05→16:29)
[2019-03-04] MEDS: MULTIVITAMINS WITH IRON TABLET PO SCH (09:11)
[2019-03-04 09:23] LABS: MEAN CORPUSCULAR HEMOGLOBIN 24.8 pg (27.0-34.8); MEAN CORPUSCULAR HGB CONC 31.3 g/dL (32.4-35.8); MEAN CORPUSCULAR VOLUME 79.2 fL (80-100); MEAN PLATELET VOLUME 7.3 fL (7.4-10.4); PLATELET COUNT 377 x10^3/uL (130-400); RED BLOOD COUNT 3.98 x10^6/uL (3.82-5.3); RED CELL DISTRIBUTION WIDTH 19.2 % (9.6-15.2)
[2019-03-04 09:27] LABS: ALBUMIN 1.9 g/dL (3.4-5.0); ANION GAP 9 mmol/L (5-15); CALCIUM 8.5 mg/dL (8.5-10.1); CHLORIDE 106 mmol/L (98-107)
[2019-03-04 09:30] LABS: CREATININE 0.86 mg/dL (0.55-1.02)
[2019-03-04 09:31] LABS: ALANINE AMINOTRANSFERASE 63 U/L (12-78); ALKALINE PHOSPHATASE 549 U/L (45-117); BILIRUBIN,TOTAL 1.1 mg/dL (0.2-1.0); TOTAL PROTEIN 6.6 g/dL (6.4-8.2)
[2019-03-04 09:43] LABS: MD YES
[2019-03-04 09:45] LABS: ANISOCYTOSIS 1+; BAND#(MANUAL) 0.37 x10^3/uL; BANDS%(MANUAL) 2 % (0-7); LYMPH#(MANUAL) 2.76 x10^3/uL (1-3.4); LYMPHS% (MANUAL) 15 % (22-44); METAMYELOCYTES# (MANUAL) 0.37 x10^3/uL (0-0); METAMYELOCYTES% (MANUAL) 2 % (0-1); MICROCYTOSIS 1+; MONOS#(MANUAL) 0.74 x10^3/uL (0.3-2.7); MONOS% (MANUAL) 4 % (2-9); POLYCHROMASIA 1+; SEG#(MANUAL) 14.17 x10^3/uL (1.8-6.8); SEGS% (MANUAL) 77 % (42-75)
[2019-03-04 09:46] LABS: <PLATELET ESTIMATE> ADEQUATE; <PLT MORPHOLOGY> NORMAL PLT MORPH; OVALOCYTES 1+
[2019-03-04] MEDS: CHLORHEXIDINE 15 ML UDC MM SCH ×2 (10:24→20:36)
[2019-03-04 12:32] VITALS: BP 91/67
[2019-03-04] MEDS: PIPERACILLIN/TAZO/PMX 4.5GM 100 ML IV SCH ×2 (13:56→21:25)
[2019-03-04 21:08] VITALS: BP 102/52
[2019-03-04] MEDS: morphine SULFATE 10 MG/ML, 1ML IVPush PRN (23:30)
[2019-03-05] MEDS: HEPARIN 5,000 UNITS/ML, 1ML SQ SCH ×3 (01:14→16:59)
[2019-03-05] MEDS: ACETAMINOPHEN 325 MG TABLET PO PRN (01:17)
[2019-03-05 01:18] VITALS: BP 95/63
[2019-03-05] MEDS: PIPERACILLIN/TAZO/PMX 4.5GM 100 ML IV SCH ×3 (05:28→21:17)
[2019-03-05 06:38] LABS: MEAN CORPUSCULAR HEMOGLOBIN 25.9 pg (27.0-34.8); MEAN CORPUSCULAR HGB CONC 32.5 g/dL (32.4-35.8); MEAN CORPUSCULAR VOLUME 79.7 fL (80-100); MEAN PLATELET VOLUME 7.7 fL (7.4-10.4); PLATELET COUNT 396 x10^3/uL (130-400); RED BLOOD COUNT 3.73 x10^6/uL (3.82-5.3); RED CELL DISTRIBUTION WIDTH 19.4 % (9.6-15.2)
[2019-03-05 06:47] LABS: ALBUMIN 2.1 g/dL (3.4-5.0); ANION GAP 8 mmol/L (5-15); CHLORIDE 100 mmol/L (98-107)
[2019-03-05 06:53] LABS: ALANINE AMINOTRANSFERASE 71 U/L (12-78); ALKALINE PHOSPHATASE 544 U/L (45-117); BILIRUBIN,TOTAL 1.2 mg/dL (0.2-1.0); CREATININE 1.04 mg/dL (0.55-1.02); TOTAL PROTEIN 7.4 g/dL (6.4-8.2)
[2019-03-05] MEDS: MULTIVITAMINS/MINERALS TABLET PO SCH (07:16)
[2019-03-05 07:45] LABS: MD YES
[2019-03-05 07:46] LABS: ANISOCYTOSIS 1+; EOS#(MANUAL) 0.46 x10^3/uL (0.0-0.4); EOS% (MANUAL) 2 % (1-7); LYMPH#(MANUAL) 3.48 x10^3/uL (1-3.4); LYMPHS% (MANUAL) 15 % (22-44); MICROCYTOSIS 1+; MONOS#(MANUAL) 0.46 x10^3/uL (0.3-2.7); MONOS% (MANUAL) 2 % (2-9); MYELOCYTES# (MANUAL) 0.23 x10^3/uL (0-0); MYELOCYTES% (MANUAL) 1 % (0-0); NRBC % (MANUAL) 1 % (0-1); OVALOCYTES 1+; POLYCHROMASIA 1+; SEG#(MANUAL) 18.56 x10^3/uL (1.8-6.8); SEGS% (MANUAL) 80 % (42-75)
[2019-03-05 07:47] LABS: <PLATELET ESTIMATE> ADEQUATE; <PLT MORPHOLOGY> NORMAL PLT MORPH
[2019-03-05 08:00] VITALS: BP 82/57
[2019-03-05] MEDS: MULTIVITAMINS WITH IRON TABLET PO SCH (08:21)
[2019-03-05] MEDS: METHADONE 5 MG TABLET PO SCH ×3 (08:21→21:17)
[2019-03-05 12:30] VITALS: BP 102/68
[2019-03-05] MEDS ORDERED: MORPHINE SULFATE 4 MG/ML, 1ML ONE (12:50)
[2019-03-05] MEDS: CHLORHEXIDINE 15 ML UDC MM SCH ×2 (12:52→21:17)
[2019-03-05] MEDS: morphine SULFATE 10 MG/ML, 1ML IVPush PRN ×2 (12:52→22:46)
[2019-03-05 16:16] LABS: MICROSCOPIC NOT IND
[2019-03-05 20:07] VITALS: BP 96/62
[2019-03-06] MEDS: ACETAMINOPHEN 325 MG TABLET PO PRN ×3 (00:08→16:20)
[2019-03-06 00:55] VITALS: BP 91/60
[2019-03-06] MEDS: HEPARIN 5,000 UNITS/ML, 1ML SQ SCH ×3 (01:30→17:30)
[2019-03-06] MEDS: morphine SULFATE 10 MG/ML, 1ML IVPush PRN ×4 (01:55→23:39)
[2019-03-06] MEDS: PIPERACILLIN/TAZO/PMX 4.5GM 100 ML IV SCH ×3 (05:49→21:13)
[2019-03-06 06:13] LABS: MEAN CORPUSCULAR HEMOGLOBIN 25.7 pg (27.0-34.8); MEAN CORPUSCULAR HGB CONC 32.6 g/dL (32.4-35.8); MEAN PLATELET VOLUME 7.9 fL (7.4-10.4); PLATELET COUNT 428 x10^3/uL (130-400); RED BLOOD COUNT 3.78 x10^6/uL (3.82-5.3); RED CELL DISTRIBUTION WIDTH 20.2 % (9.6-15.2)
[2019-03-06 06:29] LABS: CHLORIDE 103 mmol/L (98-107)
[2019-03-06 06:37] LABS: BASOPHILS # (AUTO) 0.06 x10^3/uL (0-0.1); BASOPHILS % (AUTO) 0 % (0-1); EOSINOPHILS # (AUTO) 0.08 x10^3/uL (0-0.4); EOSINOPHILS % (AUTO) 0 % (1-7); LYMPHOCYTES # (AUTO) 4.05 x10^3/uL (1-3.4); LYMPHOCYTES % (AUTO) 19 % (22-44); MD SCAN; MONOCYTES # (AUTO) 1.08 x10^3/uL (0.2-0.8); MONOCYTES % (AUTO) 5 % (2-9); NEUTROPHILS # (AUTO) 15.68 x10^3/uL (1.8-6.8); NEUTROPHILS % (AUTO) 75 % (42-75)
[2019-03-06 06:40] LABS: ALANINE AMINOTRANSFERASE 66 U/L (12-78); ALBUMIN 2.1 g/dL (3.4-5.0); ALKALINE PHOSPHATASE 578 U/L (45-117); ANION GAP 9 mmol/L (5-15); BILIRUBIN,TOTAL 1.2 mg/dL (0.2-1.0); CALCIUM 8.8 mg/dL (8.5-10.1); TOTAL PROTEIN 7.7 g/dL (6.4-8.2)
[2019-03-06 08:00] VITALS: BP_SYST 76; BP_SYST 88; BP_DIAS 51; BP_DIAS 60
[2019-03-06] MEDS: MULTIVITAMINS/MINERALS TABLET PO SCH (09:00)
[2019-03-06] MEDS ORDERED: METHADONE 10 MG TABLET ONE (09:09)
[2019-03-06] MEDS: CHLORHEXIDINE 15 ML UDC MM SCH ×2 (09:29→21:13)
[2019-03-06] MEDS: METHADONE 5 MG TABLET PO SCH ×3 (09:29→21:13)
[2019-03-06] MEDS: MULTIVITAMINS WITH IRON TABLET PO SCH (09:29)
[2019-03-06 09:31] VITALS: BP 92/57
[2019-03-06 11:15] VITALS: BP 95/61
[2019-03-06] MEDS: GUAIFENESIN 200 MG TABLET PO SCH ×3 (11:15→21:15)
[2019-03-06 13:19] VITALS: BP 90/53
[2019-03-06 20:50] VITALS: BP 91/64
[2019-03-07 01:02] VITALS: BP 107/68
[2019-03-07] MEDS: HEPARIN 5,000 UNITS/ML, 1ML SQ SCH ×3 (01:35→16:40)
[2019-03-07] MEDS: ACETAMINOPHEN 325 MG TABLET PO PRN ×3 (01:49→20:13)
[2019-03-07 02:46] VITALS: BP 98/62
[2019-03-07] MEDS: morphine SULFATE 10 MG/ML, 1ML IVPush PRN ×5 (02:47→20:14)
[2019-03-07] MEDS: PIPERACILLIN/TAZO/PMX 4.5GM 100 ML IV SCH (05:36)
[2019-03-07 05:50] LABS: MEAN CORPUSCULAR HEMOGLOBIN 25.3 pg (27.0-34.8); MEAN CORPUSCULAR HGB CONC 32.2 g/dL (32.4-35.8); MEAN CORPUSCULAR VOLUME 78.4 fL (80-100); MEAN PLATELET VOLUME 8.1 fL (7.4-10.4); PLATELET COUNT 445 x10^3/uL (130-400); RED BLOOD COUNT 4.07 x10^6/uL (3.82-5.3); RED CELL DISTRIBUTION WIDTH 19.5 % (9.6-15.2)
[2019-03-07 06:00] LABS: ALBUMIN 2.2 g/dL (3.4-5.0); ANION GAP 9 mmol/L (5-15); CALCIUM 9.1 mg/dL (8.5-10.1); CHLORIDE 102 mmol/L (98-107)
[2019-03-07 06:03] LABS: ALANINE AMINOTRANSFERASE 53 U/L (12-78); ALKALINE PHOSPHATASE 640 U/L (45-117); BILIRUBIN,TOTAL 1.4 mg/dL (0.2-1.0)
[2019-03-07 06:50] LABS: BASOPHILS # (AUTO) 0.07 x10^3/uL (0-0.1); BASOPHILS % (AUTO) 0 % (0-1); EOSINOPHILS # (AUTO) 0.04 x10^3/uL (0-0.4); EOSINOPHILS % (AUTO) 0 % (1-7); LYMPHOCYTES # (AUTO) 3.68 x10^3/uL (1-3.4); LYMPHOCYTES % (AUTO) 19 % (22-44); MD SCAN; MONOCYTES # (AUTO) 1.02 x10^3/uL (0.2-0.8); MONOCYTES % (AUTO) 5 % (2-9); NEUTROPHILS # (AUTO) 14.98 x10^3/uL (1.8-6.8); NEUTROPHILS % (AUTO) 76 % (42-75)
[2019-03-07] MEDS: GUAIFENESIN 200 MG TABLET PO SCH ×4 (07:30→21:08)
[2019-03-07 08:13] VITALS: BP 85/58
[2019-03-07] MEDS: MULTIVITAMINS WITH IRON TABLET PO SCH (08:23)
[2019-03-07] MEDS: METHADONE 5 MG TABLET PO SCH ×3 (08:23→21:11)
[2019-03-07] MEDS: CHLORHEXIDINE 15 ML UDC MM SCH ×2 (08:23→21:07)
[2019-03-07] MEDS: MULTIVITAMINS/MINERALS TABLET PO SCH (08:32)
[2019-03-07] MEDS: MEROPENEM 1 GM in SODIUM CHLORIDE 0.9% 100 ML IV SCH ×2 (12:14→20:14)
[2019-03-07 12:42] VITALS: BP 99/61
[2019-03-07 19:49] VITALS: BP 91/61
[2019-03-07 21:12] VITALS: BP 101/67
[2019-03-08] VITALS (7 sets, daily range): BP systolic 92–122; BP diastolic 61–76
[2019-03-08] MEDS: morphine SULFATE 10 MG/ML, 1ML IVPush PRN ×6 (01:08→22:51)
[2019-03-08] MEDS: ACETAMINOPHEN 325 MG TABLET PO PRN ×5 (01:08→22:22)
[2019-03-08] MEDS: HEPARIN 5,000 UNITS/ML, 1ML SQ SCH ×3 (01:47→16:51)
[2019-03-08] MEDS: MEROPENEM 1 GM in SODIUM CHLORIDE 0.9% 100 ML IV SCH ×3 (04:29→22:51)
[2019-03-08] MEDS: GUAIFENESIN 200 MG TABLET PO SCH ×4 (05:10→20:21)
[2019-03-08 05:52] LABS: BASOPHILS # (AUTO) 0.09 x10^3/uL (0-0.1); BASOPHILS % (AUTO) 1 % (0-1); EOSINOPHILS # (AUTO) 0.09 x10^3/uL (0-0.4); EOSINOPHILS % (AUTO) 1 % (1-7); LYMPHOCYTES % (AUTO) 21 % (22-44); MD NO; MEAN CORPUSCULAR HEMOGLOBIN 24.7 pg (27.0-34.8); MEAN CORPUSCULAR HGB CONC 31.9 g/dL (32.4-35.8); MEAN CORPUSCULAR VOLUME 77.6 fL (80-100); MEAN PLATELET VOLUME 7.6 fL (7.4-10.4); MONOCYTES # (AUTO) 0.64 x10^3/uL (0.2-0.8); MONOCYTES % (AUTO) 5 % (2-9); NEUTROPHILS % (AUTO) 73 % (42-75); PLATELET COUNT 401 x10^3/uL (130-400); RED BLOOD COUNT 3.65 x10^6/uL (3.82-5.3); RED CELL DISTRIBUTION WIDTH 18.8 % (9.6-15.2)
[2019-03-08 05:53] LABS: HCT (SEDRATE) 28.4 % (34.6-47.8)
[2019-03-08 06:01] LABS: ALANINE AMINOTRANSFERASE 48 U/L (12-78); ANION GAP 8 mmol/L (5-15); CALCIUM 8.9 mg/dL (8.5-10.1); CHLORIDE 102 mmol/L (98-107); CREATININE 0.72 mg/dL (0.55-1.02)
[2019-03-08 06:04] LABS: ALKALINE PHOSPHATASE 684 U/L (45-117); TOTAL PROTEIN 7.6 g/dL (6.4-8.2)
[2019-03-08] MEDS: MULTIVITAMINS WITH IRON TABLET PO SCH (08:42)
[2019-03-08] MEDS: METHADONE 5 MG TABLET PO SCH ×3 (08:42→20:21)
[2019-03-08] MEDS: CHLORHEXIDINE 15 ML UDC MM SCH ×2 (08:42→20:21)
[2019-03-08] MEDS: DIAPER RASH/ZINC OXIDE PASTE 40%, 56GM TP SCH (20:21)
[2019-03-09] MEDS: HEPARIN 5,000 UNITS/ML, 1ML SQ SCH ×3 (01:44→16:14)
[2019-03-09 03:08] VITALS: BP 106/72
[2019-03-09] MEDS: morphine SULFATE 10 MG/ML, 1ML IVPush PRN ×4 (03:20→17:41)
[2019-03-09] MEDS: ACETAMINOPHEN 325 MG TABLET PO PRN ×2 (03:20→21:15)
[2019-03-09] MEDS: GUAIFENESIN 200 MG TABLET PO SCH ×4 (05:43→21:15)
[2019-03-09 07:31] VITALS: BP_SYST 90; BP_DIAS 1; BP_DIAS 61
[2019-03-09] MEDS ORDERED: METHADONE 10 MG TABLET ONE ×2 (08:13→16:01)
[2019-03-09] MEDS: MULTIVITAMINS WITH IRON TABLET PO SCH (08:22)
[2019-03-09] MEDS: METHADONE 5 MG TABLET PO SCH ×2 (08:22→16:14)
[2019-03-09] MEDS: MEROPENEM 1 GM in SODIUM CHLORIDE 0.9% 100 ML IV SCH ×3 (08:22→18:17)
[2019-03-09] MEDS: DIAPER RASH/ZINC OXIDE PASTE 40%, 56GM TP SCH ×2 (08:22→21:16)
[2019-03-09 10:28] LABS: BASOPHILS # (AUTO) 0.06 x10^3/uL (0-0.1); BASOPHILS % (AUTO) 0 % (0-1); EOSINOPHILS # (AUTO) 0.09 x10^3/uL (0-0.4); EOSINOPHILS % (AUTO) 1 % (1-7); LYMPHOCYTES # (AUTO) 2.93 x10^3/uL (1-3.4); LYMPHOCYTES % (AUTO) 19 % (22-44); MD NO; MEAN CORPUSCULAR HEMOGLOBIN 24.5 pg (27.0-34.8); MEAN CORPUSCULAR HGB CONC 31.6 g/dL (32.4-35.8); MEAN CORPUSCULAR VOLUME 77.5 fL (80-100); MEAN PLATELET VOLUME 7.4 fL (7.4-10.4); MONOCYTES # (AUTO) 0.72 x10^3/uL (0.2-0.8); MONOCYTES % (AUTO) 5 % (2-9); NEUTROPHILS # (AUTO) 11.42 x10^3/uL (1.8-6.8); NEUTROPHILS % (AUTO) 75 % (42-75); PLATELET COUNT 453 x10^3/uL (130-400); RED BLOOD COUNT 3.73 x10^6/uL (3.82-5.3); RED CELL DISTRIBUTION WIDTH 19.9 % (9.6-15.2)
[2019-03-09 10:40] LABS: ALANINE AMINOTRANSFERASE 55 U/L (12-78); ALBUMIN 2.1 g/dL (3.4-5.0); ANION GAP 10 mmol/L (5-15); CALCIUM 8.6 mg/dL (8.5-10.1); CHLORIDE 103 mmol/L (98-107); CREATININE 0.71 mg/dL (0.55-1.02)
[2019-03-09 10:43] LABS: ALKALINE PHOSPHATASE 762 U/L (45-117); BILIRUBIN,TOTAL 0.7 mg/dL (0.2-1.0); TOTAL PROTEIN 7.9 g/dL (6.4-8.2)
[2019-03-09] MEDS: CHLORHEXIDINE 15 ML UDC MM SCH ×2 (12:30→21:15)
[2019-03-09 14:25] VITALS: BP 101/62
[2019-03-09 18:24] VITALS: BP 100/67
[2019-03-09 21:00] VITALS: BP 103/64
[2019-03-09] MEDS: METHADONE 10 MG TABLET PO SCH (21:15)
[2019-03-10 02:00] VITALS: BP 94/64
[2019-03-10] MEDS: ACETAMINOPHEN 325 MG TABLET PO PRN ×2 (05:20→14:07)
[2019-03-10] MEDS: GUAIFENESIN 200 MG TABLET PO SCH ×4 (05:21→21:28)
[2019-03-10] MEDS: HEPARIN 5,000 UNITS/ML, 1ML SQ SCH ×4 (05:21→21:30)
[2019-03-10] MEDS: CHLORHEXIDINE 15 ML UDC MM SCH ×3 (08:42→23:08)
[2019-03-10] MEDS: METHADONE 10 MG TABLET PO SCH ×3 (08:42→21:28)
[2019-03-10] MEDS: MULTIVITAMINS WITH IRON TABLET PO SCH (08:42)
[2019-03-10] MEDS: MEROPENEM 1 GM in SODIUM CHLORIDE 0.9% 100 ML IV SCH ×3 (08:42→16:09)
[2019-03-10] MEDS: morphine SULFATE 10 MG/ML, 1ML IVPush PRN ×4 (08:42→23:08)
[2019-03-10] MEDS: DIAPER RASH/ZINC OXIDE PASTE 40%, 56GM TP SCH ×2 (08:43→21:28)
[2019-03-10 12:50] VITALS: BP 85/59
[2019-03-10 12:55] VITALS: BP 84/59
[2019-03-10 14:01] VITALS: BP 93/58
[2019-03-10 15:36] LABS: ALBUMIN 2.1 g/dL (3.4-5.0); ANION GAP 10 mmol/L (5-15); CALCIUM 8.7 mg/dL (8.5-10.1); CHLORIDE 103 mmol/L (98-107)
[2019-03-10 15:40] LABS: ALANINE AMINOTRANSFERASE 65 U/L (12-78); ALKALINE PHOSPHATASE 810 U/L (45-117); BILIRUBIN,TOTAL 0.7 mg/dL (0.2-1.0); CREATININE 0.64 mg/dL (0.55-1.02)
[2019-03-10 20:58] VITALS: BP 101/68
[2019-03-11] MEDS: MEROPENEM 1 GM in SODIUM CHLORIDE 0.9% 100 ML IV SCH ×3 (01:17→16:36)
[2019-03-11 01:18] VITALS: BP 111/73
[2019-03-11] MEDS: morphine SULFATE 10 MG/ML, 1ML IVPush PRN ×4 (03:32→19:40)
[2019-03-11] MEDS: ACETAMINOPHEN 325 MG TABLET PO PRN (03:36)
[2019-03-11 04:09] VITALS: BP 95/62
[2019-03-11] MEDS: HEPARIN 5,000 UNITS/ML, 1ML SQ SCH ×3 (05:44→21:19)
[2019-03-11] MEDS: GUAIFENESIN 200 MG TABLET PO SCH ×2 (05:44→11:19)
[2019-03-11 06:38] LABS: BASOPHILS % (AUTO) 1 % (0-1); EOSINOPHILS % (AUTO) 2 % (1-7); LYMPHOCYTES # (AUTO) 3.06 x10^3/uL (1-3.4); LYMPHOCYTES % (AUTO) 27 % (22-44); MD NO; MEAN CORPUSCULAR HEMOGLOBIN 24.6 pg (27.0-34.8); MEAN CORPUSCULAR HGB CONC 31.6 g/dL (32.4-35.8); MEAN CORPUSCULAR VOLUME 77.7 fL (80-100); MEAN PLATELET VOLUME 7.4 fL (7.4-10.4); MONOCYTES # (AUTO) 0.54 x10^3/uL (0.2-0.8); MONOCYTES % (AUTO) 5 % (2-9); NEUTROPHILS # (AUTO) 7.57 x10^3/uL (1.8-6.8); NEUTROPHILS % (AUTO) 66 % (42-75); PLATELET COUNT 446 x10^3/uL (130-400); RED BLOOD COUNT 3.55 x10^6/uL (3.82-5.3); RED CELL DISTRIBUTION WIDTH 19.3 % (9.6-15.2)
[2019-03-11 06:46] LABS: ALANINE AMINOTRANSFERASE 53 U/L (12-78); ALBUMIN 2.1 g/dL (3.4-5.0); ANION GAP 10 mmol/L (5-15); CALCIUM 8.7 mg/dL (8.5-10.1); CHLORIDE 104 mmol/L (98-107); CREATININE 0.64 mg/dL (0.55-1.02)
[2019-03-11 06:49] LABS: ALKALINE PHOSPHATASE 736 U/L (45-117); BILIRUBIN,TOTAL 0.6 mg/dL (0.2-1.0); TOTAL PROTEIN 7.7 g/dL (6.4-8.2)
[2019-03-11 06:55] VITALS: BP_SYST 101; BP_SYST 93; BP_DIAS 58
[2019-03-11] MEDS: CHLORHEXIDINE 15 ML UDC MM SCH ×2 (08:43→21:19)
[2019-03-11] MEDS: METHADONE 10 MG TABLET PO SCH ×3 (08:43→21:19)
[2019-03-11] MEDS: MULTIVITAMINS WITH IRON TABLET PO SCH (08:43)
[2019-03-11] MEDS: DIAPER RASH/ZINC OXIDE PASTE 40%, 56GM TP SCH ×2 (08:43→21:19)
[2019-03-11] MEDS ORDERED: ALBUTEROL SULFATE 2.5 MG/3 ML NPPB PRN (12:30)
[2019-03-11 12:55] VITALS: BP 111/76
[2019-03-11 16:44] VITALS: BP 100/69
[2019-03-11 20:35] VITALS: BP 92/57
[2019-03-12] MEDS: MEROPENEM 1 GM in SODIUM CHLORIDE 0.9% 100 ML IV SCH ×3 (00:18→18:06)
[2019-03-12 00:22] VITALS: BP 102/61
[2019-03-12] MEDS: morphine SULFATE 10 MG/ML, 1ML IVPush PRN ×5 (01:01→22:10)
[2019-03-12 04:05] VITALS: BP 95/65
[2019-03-12] MEDS: HEPARIN 5,000 UNITS/ML, 1ML SQ SCH ×3 (06:00→20:58)
[2019-03-12 07:25] VITALS: BP 99/68
[2019-03-12] MEDS: METHADONE 10 MG TABLET PO SCH ×3 (08:29→20:58)
[2019-03-12] MEDS: MULTIVITAMINS WITH IRON TABLET PO SCH (08:29)
[2019-03-12] MEDS: DIAPER RASH/ZINC OXIDE PASTE 40%, 56GM TP SCH ×2 (08:30→20:58)
[2019-03-12] MEDS: CHLORHEXIDINE 15 ML UDC MM SCH ×2 (10:43→20:58)
[2019-03-12 10:46] LABS: BASOPHILS # (AUTO) 0.06 x10^3/uL (0-0.1); BASOPHILS % (AUTO) 1 % (0-1); EOSINOPHILS # (AUTO) 0.13 x10^3/uL (0-0.4); EOSINOPHILS % (AUTO) 1 % (1-7); LYMPHOCYTES # (AUTO) 3.51 x10^3/uL (1-3.4); LYMPHOCYTES % (AUTO) 31 % (22-44); MD NO; MEAN CORPUSCULAR HEMOGLOBIN 24.8 pg (27.0-34.8); MEAN CORPUSCULAR HGB CONC 31.7 g/dL (32.4-35.8); MEAN CORPUSCULAR VOLUME 78.2 fL (80-100); MEAN PLATELET VOLUME 7.3 fL (7.4-10.4); MONOCYTES # (AUTO) 0.65 x10^3/uL (0.2-0.8); MONOCYTES % (AUTO) 6 % (2-9); NEUTROPHILS # (AUTO) 6.86 x10^3/uL (1.8-6.8); NEUTROPHILS % (AUTO) 61 % (42-75); PLATELET COUNT 448 x10^3/uL (130-400); RED BLOOD COUNT 3.29 x10^6/uL (3.82-5.3); RED CELL DISTRIBUTION WIDTH 20.5 % (9.6-15.2)
[2019-03-12 10:55] LABS: ALANINE AMINOTRANSFERASE 57 U/L (12-78); ALBUMIN 2.1 g/dL (3.4-5.0); ANION GAP 8 mmol/L (5-15); CALCIUM 8.4 mg/dL (8.5-10.1); CHLORIDE 105 mmol/L (98-107); CREATININE 0.54 mg/dL (0.55-1.02)
[2019-03-12 10:57] LABS: ALKALINE PHOSPHATASE 707 U/L (45-117); BILIRUBIN,TOTAL 0.5 mg/dL (0.2-1.0); TOTAL PROTEIN 7.6 g/dL (6.4-8.2)
[2019-03-12 11:14] VITALS: BP 104/71
[2019-03-12 16:48] VITALS: BP 95/65
[2019-03-12 19:40] VITALS: BP 103/68
[2019-03-13 00:43] VITALS: BP 97/63
[2019-03-13] MEDS: MEROPENEM 1 GM in SODIUM CHLORIDE 0.9% 100 ML IV SCH ×3 (01:43→17:43)
[2019-03-13] MEDS: ACETAMINOPHEN 325 MG TABLET PO PRN (03:00)
[2019-03-13] MEDS: morphine SULFATE 10 MG/ML, 1ML IVPush PRN ×4 (03:02→21:14)
[2019-03-13] MEDS: HEPARIN 5,000 UNITS/ML, 1ML SQ SCH ×3 (03:30→21:14)
[2019-03-13 04:08] VITALS: BP 102/67
[2019-03-13 07:17] VITALS: BP 99/68
[2019-03-13] MEDS: DIAPER RASH/ZINC OXIDE PASTE 40%, 56GM TP SCH ×2 (09:00→21:15)
[2019-03-13] MEDS: METHADONE 10 MG TABLET PO SCH ×3 (09:14→21:14)
[2019-03-13] MEDS: MULTIVITAMINS WITH IRON TABLET PO SCH (09:14)
[2019-03-13] MEDS: CHLORHEXIDINE 15 ML UDC MM SCH ×3 (09:14→21:14)
[2019-03-13 12:02] VITALS: BP 103/66
[2019-03-13 16:00] VITALS: BP 109/68
[2019-03-13 19:59] VITALS: BP 105/69
[2019-03-14] VITALS: BP 104/70
[2019-03-14] MEDS: morphine SULFATE 10 MG/ML, 1ML IVPush PRN ×5 (02:06→20:57)
[2019-03-14] MEDS: MEROPENEM 1 GM in SODIUM CHLORIDE 0.9% 100 ML IV SCH ×3 (02:07→17:54)
[2019-03-14 04:30] VITALS: BP 111/75
[2019-03-14] MEDS: HEPARIN 5,000 UNITS/ML, 1ML SQ SCH ×3 (06:06→20:57)
[2019-03-14] MEDS: METHADONE 10 MG TABLET PO SCH ×3 (08:14→19:56)
[2019-03-14] MEDS: MULTIVITAMINS WITH IRON TABLET PO SCH (08:14)
[2019-03-14] MEDS: CHLORHEXIDINE 15 ML UDC MM SCH ×2 (08:14→19:56)
[2019-03-14 08:37] LABS: BASOPHILS # (AUTO) 0.12 x10^3/uL (0-0.1); BASOPHILS % (AUTO) 1 % (0-1); EOSINOPHILS # (AUTO) 0.11 x10^3/uL (0-0.4); EOSINOPHILS % (AUTO) 1 % (1-7); LYMPHOCYTES # (AUTO) 3.24 x10^3/uL (1-3.4); LYMPHOCYTES % (AUTO) 27 % (22-44); MD NO; MEAN CORPUSCULAR HEMOGLOBIN 24.9 pg (27.0-34.8); MEAN CORPUSCULAR HGB CONC 31.5 g/dL (32.4-35.8); MEAN CORPUSCULAR VOLUME 79.2 fL (80-100); MEAN PLATELET VOLUME 7.4 fL (7.4-10.4); MONOCYTES # (AUTO) 0.66 x10^3/uL (0.2-0.8); MONOCYTES % (AUTO) 6 % (2-9); NEUTROPHILS # (AUTO) 7.81 x10^3/uL (1.8-6.8); NEUTROPHILS % (AUTO) 65 % (42-75); PLATELET COUNT 385 x10^3/uL (130-400); RED CELL DISTRIBUTION WIDTH 20.9 % (9.6-15.2)
[2019-03-14 08:48] LABS: ALANINE AMINOTRANSFERASE 62 U/L (12-78); ALBUMIN 2.4 g/dL (3.4-5.0); ANION GAP 6 mmol/L (5-15); CALCIUM 9.2 mg/dL (8.5-10.1); CHLORIDE 104 mmol/L (98-107); CREATININE 0.66 mg/dL (0.55-1.02)
[2019-03-14 08:51] LABS: ALKALINE PHOSPHATASE 644 U/L (45-117); BILIRUBIN,TOTAL 0.5 mg/dL (0.2-1.0); TOTAL PROTEIN 8.1 g/dL (6.4-8.2)
[2019-03-14] MEDS: DIAPER RASH/ZINC OXIDE PASTE 40%, 56GM TP SCH ×2 (09:00→19:55)
[2019-03-14 10:20] VITALS: BP 108/69
[2019-03-14 11:37] LABS: AMPHETAMINE SCREEN, URINE Negative (Negative); BENZODIAZEPINE SCREEN, URINE Negative (Negative); CANNABINOID SCREEN, URINE Negative (Negative)
[2019-03-14 11:47] LABS: BARBITURATE SCREEN, URINE Negative (Negative); COCAINE SCREEN, URINE Negative (Negative); METHADONE SCREEN, URINE Positive (Negative); OPIATE SCREEN, URINE Positive (Negative)
[2019-03-14] MEDS: IBUPROFEN 200 MG TABLET PO PRN (14:09)
[2019-03-14 16:00] VITALS: BP 102/64
[2019-03-14 19:03] VITALS: BP_SYST 108; BP_SYST 168; BP_DIAS 64
[2019-03-14 23:32] VITALS: BP 103/69
[2019-03-15] MEDS: IBUPROFEN 200 MG TABLET PO PRN ×2 (01:31→16:03)
[2019-03-15] MEDS: morphine SULFATE 10 MG/ML, 1ML IVPush PRN ×4 (01:35→21:25)
[2019-03-15] MEDS: MEROPENEM 1 GM in SODIUM CHLORIDE 0.9% 100 ML IV SCH ×3 (02:24→19:09)
[2019-03-15 04:00] VITALS: BP 109/66
[2019-03-15] MEDS: HEPARIN 5,000 UNITS/ML, 1ML SQ SCH ×3 (05:58→21:26)
[2019-03-15 08:00] VITALS: BP 97/62
[2019-03-15] MEDS: DIAPER RASH/ZINC OXIDE PASTE 40%, 56GM TP SCH ×2 (09:00→21:00)
[2019-03-15] MEDS: CHLORHEXIDINE 15 ML UDC MM SCH ×2 (09:00→21:25)
[2019-03-15] MEDS: METHADONE 10 MG TABLET PO SCH ×3 (10:00→21:25)
[2019-03-15] MEDS: MULTIVITAMINS WITH IRON TABLET PO SCH (10:00)
[2019-03-15] MEDS ORDERED: MORPHINE SULFATE 4 MG/ML, 1ML ONE (10:09)
[2019-03-15 12:00] VITALS: BP 108/72
[2019-03-15 16:07] VITALS: BP 102/69
[2019-03-15 19:45] VITALS: BP 96/67
[2019-03-16] VITALS: BP 99/72
[2019-03-16] MEDS: morphine SULFATE 10 MG/ML, 1ML IVPush PRN ×6 (01:33→23:12)
[2019-03-16] MEDS: IBUPROFEN 200 MG TABLET PO PRN ×3 (01:37→20:16)
[2019-03-16] MEDS: MEROPENEM 1 GM in SODIUM CHLORIDE 0.9% 100 ML IV SCH (03:24)
[2019-03-16 04:19] VITALS: BP 102/69
[2019-03-16] MEDS: HEPARIN 5,000 UNITS/ML, 1ML SQ SCH ×3 (05:52→23:12)
[2019-03-16 07:29] VITALS: BP 99/67
[2019-03-16] MEDS: METHADONE 10 MG TABLET PO SCH ×3 (08:45→20:16)
[2019-03-16] MEDS: MULTIVITAMINS WITH IRON TABLET PO SCH (08:45)
[2019-03-16] MEDS: CHLORHEXIDINE 15 ML UDC MM SCH ×2 (08:45→20:16)
[2019-03-16] MEDS: DIAPER RASH/ZINC OXIDE PASTE 40%, 56GM TP SCH ×2 (08:47→20:17)
[2019-03-16 12:00] VITALS: BP 94/59
[2019-03-16] MEDS: CEFTRIAXONE PMX 2GM/50ML 50 ML IV SCH (12:02)
[2019-03-16 16:00] VITALS: BP 97/58
[2019-03-16 19:58] VITALS: BP 95/57
[2019-03-17 01:10] VITALS: BP 95/66
[2019-03-17] MEDS: IBUPROFEN 200 MG TABLET PO PRN ×3 (02:45→19:39)
[2019-03-17] MEDS: morphine SULFATE 10 MG/ML, 1ML IVPush PRN ×7 (02:45→22:26)
[2019-03-17 03:14] LABS: HCT (SEDRATE) 26.8 % (34.6-47.8)
[2019-03-17 03:18] LABS: ALANINE AMINOTRANSFERASE 56 U/L (12-78); ALBUMIN 2.2 g/dL (3.4-5.0); ANION GAP 5 mmol/L (5-15); CALCIUM 8.7 mg/dL (8.5-10.1); CHLORIDE 103 mmol/L (98-107); CREATININE 0.57 mg/dL (0.55-1.02)
[2019-03-17 03:21] LABS: ALKALINE PHOSPHATASE 523 U/L (45-117); BILIRUBIN,TOTAL 0.6 mg/dL (0.2-1.0); TOTAL PROTEIN 7.3 g/dL (6.4-8.2)
[2019-03-17 04:00] VITALS: BP 107/73
[2019-03-17] MEDS: HEPARIN 5,000 UNITS/ML, 1ML SQ SCH (05:56)
[2019-03-17 07:03] VITALS: BP 98/60
[2019-03-17] MEDS: METHADONE 10 MG TABLET PO SCH ×3 (08:06→21:23)
[2019-03-17] MEDS: MULTIVITAMINS WITH IRON TABLET PO SCH (08:06)
[2019-03-17] MEDS: DIAPER RASH/ZINC OXIDE PASTE 40%, 56GM TP SCH ×2 (09:00→21:00)
[2019-03-17] MEDS: CHLORHEXIDINE 15 ML UDC MM SCH ×3 (09:00→20:19)
[2019-03-17] MEDS: CEFTRIAXONE PMX 2GM/50ML 50 ML IV SCH (12:38)
[2019-03-17 12:50] VITALS: BP 88/54
[2019-03-17] MEDS: DIPHENHYDRAMINE 25 MG CAPSULE PO PRN (12:50)
[2019-03-17] MEDS ORDERED: HEPARIN 5,000 UNITS/ML, 1ML IV ONE (13:30)
[2019-03-17] MEDS: HEPARIN 25,000 UNITS/500ML PMX 500 ML IV PRN (15:38)
[2019-03-17 19:45] VITALS: BP 105/72
[2019-03-18] VITALS: BP 118/77
[2019-03-18] MEDS: morphine SULFATE 10 MG/ML, 1ML IVPush PRN ×7 (01:25→21:13)
[2019-03-18] MEDS: IBUPROFEN 200 MG TABLET PO PRN ×2 (01:27→13:36)
[2019-03-18 04:30] VITALS: BP 105/77
[2019-03-18] MEDS: HEPARIN 5,000 UNITS/ML, 1ML IV PRN ×2 (04:42→16:06)
[2019-03-18] MEDS: HEPARIN 25,000 UNITS/500ML PMX 500 ML IV PRN ×2 (04:43→20:44)
[2019-03-18 07:24] VITALS: BP 99/66
[2019-03-18 07:53] LABS: BASOPHILS # (AUTO) 0.05 x10^3/uL (0-0.1); BASOPHILS % (AUTO) 1 % (0-1); EOSINOPHILS # (AUTO) 0.16 x10^3/uL (0-0.4); EOSINOPHILS % (AUTO) 2 % (1-7); LYMPHOCYTES % (AUTO) 22 % (22-44); MD NO; MEAN CORPUSCULAR HEMOGLOBIN 24.8 pg (27.0-34.8); MEAN CORPUSCULAR HGB CONC 31.9 g/dL (32.4-35.8); MEAN CORPUSCULAR VOLUME 77.8 fL (80-100); MEAN PLATELET VOLUME 7.8 fL (7.4-10.4); MONOCYTES # (AUTO) 0.59 x10^3/uL (0.2-0.8); MONOCYTES % (AUTO) 7 % (2-9); NEUTROPHILS # (AUTO) 5.74 x10^3/uL (1.8-6.8); NEUTROPHILS % (AUTO) 69 % (42-75); PLATELET COUNT 286 x10^3/uL (130-400); RED BLOOD COUNT 3.47 x10^6/uL (3.82-5.3); RED CELL DISTRIBUTION WIDTH 20.5 % (9.6-15.2)
[2019-03-18] MEDS ORDERED: OMNIPAQUE 350 MG/ML, 100ML BOTTLE ONE (07:56)
[2019-03-18] MEDS: MULTIVITAMINS WITH IRON TABLET PO SCH (08:07)
[2019-03-18] MEDS: METHADONE 10 MG TABLET PO SCH ×3 (08:07→20:08)
[2019-03-18] MEDS: CHLORHEXIDINE 15 ML UDC MM SCH ×2 (08:07→20:08)
[2019-03-18] MEDS: DIAPER RASH/ZINC OXIDE PASTE 40%, 56GM TP SCH ×2 (09:00→20:44)
[2019-03-18] MEDS: DIPHENHYDRAMINE 25 MG CAPSULE PO PRN (11:33)
[2019-03-18] MEDS: CEFTRIAXONE PMX 2GM/50ML 50 ML IV SCH (12:09)
[2019-03-18 12:20] VITALS: BP 127/82
[2019-03-18 19:37] VITALS: BP 98/64
[2019-03-18] MEDS ORDERED: ALBUTEROL SULFATE 2.5 MG/3 ML ONE (21:24)
[2019-03-18] MEDS ORDERED: ALBUTEROL SULFATE 2.5 MG/3 ML NPPB PRN (22:00)
[2019-03-19] VITALS (7 sets, daily range): BP systolic 89–109; BP diastolic 58–73
[2019-03-19] MEDS: morphine SULFATE 10 MG/ML, 1ML IVPush PRN ×6 (00:25→20:16)
[2019-03-19] MEDS: HEPARIN 5,000 UNITS/ML, 1ML IV PRN ×3 (01:46→22:52)
[2019-03-19] MEDS: HEPARIN 25,000 UNITS/500ML PMX 500 ML IV PRN ×2 (01:48→21:14)
[2019-03-19] MEDS: MULTIVITAMINS WITH IRON TABLET PO SCH (08:54)
[2019-03-19] MEDS: METHADONE 10 MG TABLET PO SCH ×3 (08:54→20:17)
[2019-03-19] MEDS: CHLORHEXIDINE 15 ML UDC MM SCH ×2 (08:54→20:17)
[2019-03-19] MEDS: DIAPER RASH/ZINC OXIDE PASTE 40%, 56GM TP SCH ×2 (09:00→20:17)
[2019-03-19] MEDS: ACETAMINOPHEN 325 MG TABLET PO PRN (10:18)
[2019-03-19] MEDS: DIPHENHYDRAMINE 25 MG CAPSULE PO PRN (12:03)
[2019-03-19] MEDS: CEFTRIAXONE PMX 2GM/50ML 50 ML IV SCH (12:24)
[2019-03-20] MEDS: morphine SULFATE 10 MG/ML, 1ML IVPush PRN ×5 (00:21→21:03)
[2019-03-20 00:54] VITALS: BP 106/61
[2019-03-20 03:57] VITALS: BP 109/71
[2019-03-20] MEDS: HEPARIN 5,000 UNITS/ML, 1ML IV PRN (06:46)
[2019-03-20 07:27] VITALS: BP 92/62
[2019-03-20] MEDS: CHLORHEXIDINE 15 ML UDC MM SCH ×2 (08:38→20:40)
[2019-03-20] MEDS: MULTIVITAMINS WITH IRON TABLET PO SCH (08:38)
[2019-03-20] MEDS: DIAPER RASH/ZINC OXIDE PASTE 40%, 56GM TP SCH ×2 (08:38→20:40)
[2019-03-20] MEDS: METHADONE 10 MG TABLET PO SCH ×3 (09:11→20:40)
[2019-03-20] MEDS: KETOROLAC 30 MG/1 ML IVPush SCH ×3 (11:33→20:41)
[2019-03-20] MEDS: CEFTRIAXONE PMX 2GM/50ML 50 ML IV SCH (11:33)
[2019-03-20] MEDS: DIPHENHYDRAMINE 25 MG CAPSULE PO PRN (11:47)
[2019-03-20 13:15] VITALS: BP 111/72
[2019-03-20 16:57] VITALS: BP 104/70
[2019-03-20 19:50] VITALS: BP 105/71
[2019-03-20] MEDS: ACETAMINOPHEN 325 MG TABLET PO PRN (20:43)
[2019-03-21] VITALS (8 sets, daily range): BP systolic 87–112; BP diastolic 56–74
[2019-03-21] MEDS: KETOROLAC 30 MG/1 ML IVPush SCH ×4 (00:10→21:52)
[2019-03-21] MEDS: morphine SULFATE 10 MG/ML, 1ML IVPush PRN ×3 (03:27→22:42)
[2019-03-21] MEDS ORDERED: TRAM50TA2 PO (08:54)
[2019-03-21] MEDS ORDERED: KETO30VI27 IVPush (08:54)
[2019-03-21] MEDS ORDERED: METH10TA2 PO (08:54)
[2019-03-21] MEDS ORDERED: MULT1TAB81 PO (08:54)
[2019-03-21] MEDS ORDERED: DIPH25CA61 PO (08:54)
[2019-03-21] MEDS: CHLORHEXIDINE 15 ML UDC MM SCH ×2 (09:07→21:49)
[2019-03-21] MEDS: MULTIVITAMINS WITH IRON TABLET PO SCH (09:07)
[2019-03-21] MEDS: METHADONE 10 MG TABLET PO SCH ×3 (09:07→21:50)
[2019-03-21] MEDS: DIAPER RASH/ZINC OXIDE PASTE 40%, 56GM TP SCH ×2 (09:12→21:48)
[2019-03-21 11:44] LABS: BASOPHILS # (AUTO) 0.05 x10^3/uL (0-0.1); BASOPHILS % (AUTO) 1 % (0-1); EOSINOPHILS # (AUTO) 0.28 x10^3/uL (0-0.4); EOSINOPHILS % (AUTO) 3 % (1-7); LYMPHOCYTES # (AUTO) 2.57 x10^3/uL (1-3.4); LYMPHOCYTES % (AUTO) 28 % (22-44); MD NO; MEAN CORPUSCULAR HGB CONC 31.4 g/dL (32.4-35.8); MEAN CORPUSCULAR VOLUME 79.6 fL (80-100); MEAN PLATELET VOLUME 7.9 fL (7.4-10.4); MONOCYTES # (AUTO) 0.57 x10^3/uL (0.2-0.8); MONOCYTES % (AUTO) 6 % (2-9); NEUTROPHILS # (AUTO) 5.82 x10^3/uL (1.8-6.8); NEUTROPHILS % (AUTO) 63 % (42-75); PLATELET COUNT 351 x10^3/uL (130-400); RED BLOOD COUNT 3.48 x10^6/uL (3.82-5.3); RED CELL DISTRIBUTION WIDTH 20.4 % (9.6-15.2)
[2019-03-21 11:48] LABS: ALANINE AMINOTRANSFERASE 36 U/L (12-78); ALBUMIN 2.3 g/dL (3.4-5.0); ANION GAP 7 mmol/L (5-15); CALCIUM 8.9 mg/dL (8.5-10.1); CHLORIDE 103 mmol/L (98-107); CREATININE 0.67 mg/dL (0.55-1.02)
[2019-03-21 11:51] LABS: ALKALINE PHOSPHATASE 435 U/L (45-117); BILIRUBIN,TOTAL 0.3 mg/dL (0.2-1.0); TOTAL PROTEIN 7.4 g/dL (6.4-8.2)
[2019-03-21] MEDS: CEFTRIAXONE PMX 2GM/50ML 50 ML IV SCH (13:02)
[2019-03-21] MEDS: DIPHENHYDRAMINE 25 MG CAPSULE PO PRN (14:07)
[2019-03-22] MEDS ORDERED: ZOLPIDEM 10MG TABLET PO ONE
[2019-03-22] MEDS: KETOROLAC 30 MG/1 ML IVPush SCH ×4 (04:18→22:04)
[2019-03-22 05:56] VITALS: BP 91/63
[2019-03-22 08:40] VITALS: BP 99/68
[2019-03-22] MEDS: CHLORHEXIDINE 15 ML UDC MM SCH ×2 (08:45→20:21)
[2019-03-22] MEDS: METHADONE 10 MG TABLET PO SCH ×3 (08:45→20:21)
[2019-03-22] MEDS: MULTIVITAMINS WITH IRON TABLET PO SCH (08:46)
[2019-03-22] MEDS: DIAPER RASH/ZINC OXIDE PASTE 40%, 56GM TP SCH ×2 (08:46→20:22)
[2019-03-22] MEDS: morphine SULFATE 10 MG/ML, 1ML IVPush PRN (08:46)
[2019-03-22 12:00] VITALS: BP 104/67
[2019-03-22] MEDS: DIPHENHYDRAMINE 25 MG CAPSULE PO PRN (12:19)
[2019-03-22] MEDS: CEFTRIAXONE PMX 2GM/50ML 50 ML IV SCH (12:51)
[2019-03-22] MEDS: MORPHINE SULFATE 4 MG/ML, 1ML IVPush PRN ×3 (13:03→23:03)
[2019-03-22] MEDS: HEPARIN 5,000 UNITS/ML, 1ML SQ SCH ×2 (16:37→23:03)
[2019-03-22 19:36] VITALS: BP 100/68
[2019-03-22 22:58] VITALS: BP 95/57
[2019-03-22] MEDS: ZOLPIDEM 10MG TABLET PO PRN (23:03)
[2019-03-23 03:00] VITALS: BP 104/66
[2019-03-23] MEDS: ACETAMINOPHEN 325 MG TABLET PO PRN (03:13)
[2019-03-23] MEDS: MORPHINE SULFATE 4 MG/ML, 1ML IVPush PRN ×3 (04:11→20:10)
[2019-03-23] MEDS: KETOROLAC 30 MG/1 ML IVPush SCH ×4 (04:49→22:05)
[2019-03-23 07:01] VITALS: BP 96/64
[2019-03-23] MEDS: METHADONE 10 MG TABLET PO SCH ×3 (09:36→20:10)
[2019-03-23] MEDS: MULTIVITAMINS WITH IRON TABLET PO SCH (09:36)
[2019-03-23] MEDS: CHLORHEXIDINE 15 ML UDC MM SCH ×2 (09:36→20:09)
[2019-03-23] MEDS: HEPARIN 5,000 UNITS/ML, 1ML SQ SCH ×3 (09:36→22:17)
[2019-03-23] MEDS: DIAPER RASH/ZINC OXIDE PASTE 40%, 56GM TP SCH ×2 (09:38→20:10)
[2019-03-23 12:07] VITALS: BP 91/61
[2019-03-23] MEDS: DIPHENHYDRAMINE 25 MG CAPSULE PO PRN (12:33)
[2019-03-23] MEDS: CEFTRIAXONE PMX 2GM/50ML 50 ML IV SCH (13:03)
[2019-03-23 16:48] VITALS: BP 92/56
[2019-03-23 20:32] VITALS: BP 90/64
[2019-03-23] MEDS: ZOLPIDEM 10MG TABLET PO PRN (22:17)
[2019-03-24 02:58] VITALS: BP 95/56
[2019-03-24] MEDS: MORPHINE SULFATE 4 MG/ML, 1ML IVPush PRN ×4 (03:00→22:00)
[2019-03-24] MEDS: KETOROLAC 30 MG/1 ML IVPush SCH ×4 (04:15→22:00)
[2019-03-24 05:03] LABS: HCT (SEDRATE) 27.4 % (34.6-47.8)
[2019-03-24 05:09] LABS: BASOPHILS # (AUTO) 0.04 x10^3/uL (0-0.1); BASOPHILS % (AUTO) 0 % (0-1); EOSINOPHILS # (AUTO) 0.08 x10^3/uL (0-0.4); EOSINOPHILS % (AUTO) 1 % (1-7); LYMPHOCYTES # (AUTO) 1.72 x10^3/uL (1-3.4); LYMPHOCYTES % (AUTO) 11 % (22-44); MD NO; MEAN CORPUSCULAR HEMOGLOBIN 25.6 pg (27.0-34.8); MEAN CORPUSCULAR HGB CONC 32.6 g/dL (32.4-35.8); MEAN CORPUSCULAR VOLUME 78.4 fL (80-100); MEAN PLATELET VOLUME 8.7 fL (7.4-10.4); MONOCYTES # (AUTO) 0.51 x10^3/uL (0.2-0.8); MONOCYTES % (AUTO) 3 % (2-9); NEUTROPHILS # (AUTO) 12.77 x10^3/uL (1.8-6.8); NEUTROPHILS % (AUTO) 85 % (42-75); PLATELET COUNT 270 x10^3/uL (130-400); RED CELL DISTRIBUTION WIDTH 20.4 % (9.6-15.2)
[2019-03-24 05:11] LABS: CHLORIDE 104 mmol/L (98-107)
[2019-03-24 05:22] LABS: ALANINE AMINOTRANSFERASE 28 U/L (12-78); ALKALINE PHOSPHATASE 425 U/L (45-117); ANION GAP 7 mmol/L (5-15); BILIRUBIN,TOTAL 0.8 mg/dL (0.2-1.0); CALCIUM 8.3 mg/dL (8.5-10.1); CREATININE 0.96 mg/dL (0.55-1.02)
[2019-03-24] MEDS: ONDANSETRON 2MG/ML, 2ML IVPush PRN (08:30)
[2019-03-24] MEDS: METHADONE 10 MG TABLET PO SCH ×4 (09:24→21:09)
[2019-03-24] MEDS: MULTIVITAMINS WITH IRON TABLET PO SCH (09:24)
[2019-03-24 09:25] VITALS: BP 105/72
[2019-03-24] MEDS: CHLORHEXIDINE 15 ML UDC MM SCH ×2 (09:25→20:09)
[2019-03-24] MEDS: HEPARIN 5,000 UNITS/ML, 1ML SQ SCH ×2 (09:25→16:40)
[2019-03-24] MEDS: DIAPER RASH/ZINC OXIDE PASTE 40%, 56GM TP SCH ×2 (09:29→20:09)
[2019-03-24 10:07] LABS: MICROSCOPIC INDICATED
[2019-03-24 12:00] VITALS: BP 92/61
[2019-03-24] MEDS: DIPHENHYDRAMINE 25 MG CAPSULE PO PRN (12:40)
[2019-03-24] MEDS: CEFTRIAXONE PMX 2GM/50ML 50 ML IV SCH (13:22)
[2019-03-24 19:36] VITALS: BP_SYST 75; BP_SYST 82; BP_DIAS 50; BP_DIAS 59
[2019-03-24 20:30] VITALS: BP 91/50
[2019-03-24] MEDS ORDERED: SODIUM CHLORIDE 0.9%, 500ML IVBOLUS ONE (21:00)
[2019-03-25 01:23] VITALS: BP 92/61
[2019-03-25] MEDS: KETOROLAC 30 MG/1 ML IVPush SCH (03:31)
[2019-03-25] MEDS: HEPARIN 5,000 UNITS/ML, 1ML SQ SCH ×3 (03:31→16:06)
[2019-03-25] MEDS: MORPHINE SULFATE 4 MG/ML, 1ML IVPush PRN ×4 (03:31→22:25)
[2019-03-25 06:26] VITALS: BP 89/59
[2019-03-25 09:44] VITALS: BP 94/60
[2019-03-25] MEDS: METHADONE 10 MG TABLET PO SCH ×3 (09:46→20:34)
[2019-03-25] MEDS: CHLORHEXIDINE 15 ML UDC MM SCH ×2 (09:46→20:34)
[2019-03-25] MEDS: MULTIVITAMINS WITH IRON TABLET PO SCH (09:46)
[2019-03-25] MEDS: DIAPER RASH/ZINC OXIDE PASTE 40%, 56GM TP SCH ×2 (09:50→20:39)
[2019-03-25 12:12] VITALS: BP 90/56
[2019-03-25] MEDS: DIPHENHYDRAMINE 25 MG CAPSULE PO PRN (12:40)
[2019-03-25] MEDS: CEFTRIAXONE PMX 2GM/50ML 50 ML IV SCH (13:13)
[2019-03-25 20:00] VITALS: BP 90/61
[2019-03-25] MEDS ORDERED: ALBUTEROL SULFATE 2.5 MG/3 ML ONE (21:11)
[2019-03-26 00:02] VITALS: BP 94/65
[2019-03-26] MEDS: HEPARIN 5,000 UNITS/ML, 1ML SQ SCH ×3 (00:26→16:48)
[2019-03-26] MEDS: ZOLPIDEM 10MG TABLET PO PRN ×2 (00:26→23:31)
[2019-03-26 02:52] VITALS: BP 103/61
[2019-03-26] MEDS: ACETAMINOPHEN 325 MG TABLET PO PRN ×3 (02:58→23:31)
[2019-03-26] MEDS: MORPHINE SULFATE 4 MG/ML, 1ML IVPush PRN ×5 (02:58→23:23)
[2019-03-26 04:06] VITALS: BP 94/62
[2019-03-26] MEDS: CHLORHEXIDINE 15 ML UDC MM SCH ×2 (08:57→20:45)
[2019-03-26] MEDS: METHADONE 10 MG TABLET PO SCH ×3 (08:58→20:45)
[2019-03-26] MEDS: MULTIVITAMINS WITH IRON TABLET PO SCH (08:58)
[2019-03-26] MEDS: DIAPER RASH/ZINC OXIDE PASTE 40%, 56GM TP SCH ×2 (09:00→20:45)
[2019-03-26 09:14] VITALS: BP 96/65
[2019-03-26 11:09] LABS: MEAN CORPUSCULAR HEMOGLOBIN 24.6 pg (27.0-34.8); MEAN CORPUSCULAR HGB CONC 31.6 g/dL (32.4-35.8); MEAN PLATELET VOLUME 8.9 fL (7.4-10.4); PLATELET COUNT 305 x10^3/uL (130-400); RED BLOOD COUNT 3.16 x10^6/uL (3.82-5.3)
[2019-03-26 11:23] LABS: MD YES
[2019-03-26 11:24] LABS: BAND#(MANUAL) 0.78 x10^3/uL; BANDS%(MANUAL) 3 % (0-7); LYMPHS% (MANUAL) 5 % (22-44); MONOS#(MANUAL) 1.04 x10^3/uL (0.3-2.7); MONOS% (MANUAL) 4 % (2-9); SEG#(MANUAL) 22.79 x10^3/uL (1.8-6.8); SEGS% (MANUAL) 88 % (42-75)
[2019-03-26 11:25] LABS: <PLATELET ESTIMATE> ADEQUATE; <PLT MORPHOLOGY> NORMAL PLT MORPH; ANISOCYTOSIS 1+; HEMOGRAM NOTE RECHECKED; MICROCYTOSIS 1+; POLYCHROMASIA 1+
[2019-03-26 11:55] LABS: CHLORIDE 104 mmol/L (98-107)
[2019-03-26 12:03] LABS: ALANINE AMINOTRANSFERASE 21 U/L (12-78); ALKALINE PHOSPHATASE 505 U/L (45-117); ANION GAP 8 mmol/L (5-15); BILIRUBIN,TOTAL 2.2 mg/dL (0.2-1.0); CALCIUM 8.5 mg/dL (8.5-10.1); CREATININE 0.94 mg/dL (0.55-1.02); TOTAL PROTEIN 7.1 g/dL (6.4-8.2)
[2019-03-26 12:40] VITALS: BP 91/60
[2019-03-26] MEDS: DIPHENHYDRAMINE 25 MG CAPSULE PO PRN (13:08)
[2019-03-26] MEDS: CEFTRIAXONE PMX 2GM/50ML 50 ML IV SCH (13:40)
[2019-03-26 18:41] VITALS: BP 93/61
[2019-03-26] MEDS: ALBUTEROL SULFATE 2.5 MG/3 ML NPPB PRN (20:59)
[2019-03-27] VITALS (9 sets, daily range): BP systolic 92–104; BP diastolic 57–70
[2019-03-27] MEDS: HEPARIN 5,000 UNITS/ML, 1ML SQ SCH ×3 (00:27→16:30)
[2019-03-27] MEDS: MORPHINE SULFATE 4 MG/ML, 1ML IVPush PRN ×5 (03:41→21:52)
[2019-03-27] MEDS: ACETAMINOPHEN 325 MG TABLET PO PRN ×2 (04:25→21:57)
[2019-03-27] MEDS: CHLORHEXIDINE 15 ML UDC MM SCH ×2 (08:46→20:23)
[2019-03-27] MEDS: METHADONE 10 MG TABLET PO SCH ×3 (08:47→20:23)
[2019-03-27] MEDS: MULTIVITAMINS WITH IRON TABLET PO SCH (08:47)
[2019-03-27] MEDS: DIAPER RASH/ZINC OXIDE PASTE 40%, 56GM TP SCH ×2 (08:51→20:23)
--- NOTE | 2019-03-27 11:36 | NUR ---
Nursing activity green sheet initiated; 1 [address]ways 1-2 times/day with O2. 2 activity in room /sitting upright Pt and/refractory worker to checkoff when activity is complete. Pt and RN agree. Addendum: 03/27/19 at 1143 by Melvin Ortega PTS Amended: Links added.
[2019-03-27] MEDS: DIPHENHYDRAMINE 25 MG CAPSULE PO PRN (12:17)
[2019-03-27] MEDS: CEFTRIAXONE PMX 2GM/50ML 50 ML IV SCH (13:08)
[2019-03-27 16:14] LABS: MEAN CORPUSCULAR HEMOGLOBIN 25.1 pg (27.0-34.8); MEAN CORPUSCULAR HGB CONC 31.6 g/dL (32.4-35.8); MEAN CORPUSCULAR VOLUME 79.3 fL (80-100); MEAN PLATELET VOLUME 8.1 fL (7.4-10.4); PLATELET COUNT 410 x10^3/uL (130-400); RED BLOOD COUNT 2.65 x10^6/uL (3.82-5.3); RED CELL DISTRIBUTION WIDTH 20.9 % (9.6-15.2)
[2019-03-27 16:15] LABS: HEMOGRAM NOTE RECHECKED; MD YES
[2019-03-27 16:21] LABS: BAND#(MANUAL) 1.93 x10^3/uL; BANDS%(MANUAL) 8 % (0-7); LYMPH#(MANUAL) 2.41 x10^3/uL (1-3.4); LYMPHS% (MANUAL) 10 % (22-44); MONOS#(MANUAL) 0.72 x10^3/uL (0.3-2.7); MONOS% (MANUAL) 3 % (2-9); MYELOCYTES# (MANUAL) 0.24 x10^3/uL (0-0); MYELOCYTES% (MANUAL) 1 % (0-0); SEGS% (MANUAL) 78 % (42-75)
[2019-03-27 16:22] LABS: <PLATELET ESTIMATE> INCREASED; <PLT MORPHOLOGY> NORMAL PLT MORPH; ANISOCYTOSIS 1+; HYPOCHROMIA 1+; MICROCYTOSIS 1+; OVALOCYTES 1+; POLYCHROMASIA 1+
[2019-03-27] MEDS: ZOLPIDEM 10MG TABLET PO PRN (23:26)
[2019-03-28] VITALS: BP 93/61
[2019-03-28] MEDS: MORPHINE SULFATE 4 MG/ML, 1ML IVPush PRN ×5 (03:15→20:43)
[2019-03-28] MEDS: ACETAMINOPHEN 325 MG TABLET PO PRN ×3 (04:45→20:35)
[2019-03-28 04:49] VITALS: BP 106/73
[2019-03-28 07:32] VITALS: BP 96/62
[2019-03-28] MEDS: CHLORHEXIDINE 15 ML UDC MM SCH ×2 (07:52→20:43)
[2019-03-28] MEDS: MULTIVITAMINS WITH IRON TABLET PO SCH (07:52)
[2019-03-28] MEDS: METHADONE 10 MG TABLET PO SCH ×3 (07:52→20:36)
[2019-03-28] MEDS: DIAPER RASH/ZINC OXIDE PASTE 40%, 56GM TP SCH ×2 (07:52→20:43)
[2019-03-28 11:00] LABS: MEAN CORPUSCULAR HEMOGLOBIN 25.1 pg (27.0-34.8); MEAN CORPUSCULAR HGB CONC 31.5 g/dL (32.4-35.8); MEAN CORPUSCULAR VOLUME 79.6 fL (80-100); MEAN PLATELET VOLUME 7.9 fL (7.4-10.4); PLATELET COUNT 367 x10^3/uL (130-400); RED BLOOD COUNT 3.12 x10^6/uL (3.82-5.3); RED CELL DISTRIBUTION WIDTH 22.4 % (9.6-15.2)
[2019-03-28 11:16] LABS: MD YES
[2019-03-28 11:18] LABS: <PLATELET ESTIMATE> ADEQUATE; <PLT MORPHOLOGY> NORMAL PLT MORPH; ANISOCYTOSIS 1+; BAND#(MANUAL) 0.52 x10^3/uL; BANDS%(MANUAL) 2 % (0-7); EOS#(MANUAL) 0.26 x10^3/uL (0.0-0.4); EOS% (MANUAL) 1 % (1-7); LYMPH#(MANUAL) 2.07 x10^3/uL (1-3.4); LYMPHS% (MANUAL) 8 % (22-44); MICROCYTOSIS 1+; MONOS#(MANUAL) 0.78 x10^3/uL (0.3-2.7); MONOS% (MANUAL) 3 % (2-9); MYELOCYTES# (MANUAL) 0.26 x10^3/uL (0-0); MYELOCYTES% (MANUAL) 1 % (0-0); POLYCHROMASIA 1+; SEG#(MANUAL) 22.02 x10^3/uL (1.8-6.8); SEGS% (MANUAL) 85 % (42-75)
[2019-03-28 11:19] LABS: HYPOCHROMIA 1+
[2019-03-28 11:20] LABS: OVALOCYTES 1+
[2019-03-28] MEDS: DIPHENHYDRAMINE 25 MG CAPSULE PO PRN (12:29)
[2019-03-28 12:33] VITALS: BP 103/69
[2019-03-28] MEDS: CEFTRIAXONE PMX 2GM/50ML 50 ML IV SCH (13:01)
[2019-03-28 16:43] VITALS: BP 93/65
[2019-03-28] MEDS: ONDANSETRON 2MG/ML, 2ML IVPush PRN (18:25)
[2019-03-28 20:23] VITALS: BP 101/63
[2019-03-28] MEDS: ZOLPIDEM 10MG TABLET PO PRN (23:40)
[2019-03-29] VITALS (7 sets, daily range): BP systolic 95–116; BP diastolic 26–80
[2019-03-29] MEDS: MORPHINE SULFATE 4 MG/ML, 1ML IVPush PRN ×6 (00:44→22:40)
[2019-03-29] MEDS ORDERED: GUAIFENESIN/DM 200-20MG, 10ML UDC PO ONE (01:00)
[2019-03-29] MEDS: ACETAMINOPHEN 325 MG TABLET PO PRN ×4 (02:45→21:57)
[2019-03-29 06:03] LABS: ALANINE AMINOTRANSFERASE 19 U/L (12-78); ALBUMIN 1.7 g/dL (3.4-5.0); ANION GAP 8 mmol/L (5-15); CALCIUM 8.1 mg/dL (8.5-10.1); CHLORIDE 101 mmol/L (98-107); CREATININE 0.65 mg/dL (0.55-1.02)
[2019-03-29 06:06] LABS: ALKALINE PHOSPHATASE 534 U/L (45-117); BILIRUBIN,TOTAL 2.4 mg/dL (0.2-1.0); MEAN CORPUSCULAR HEMOGLOBIN 26.1 pg (27.0-34.8); MEAN CORPUSCULAR HGB CONC 32.9 g/dL (32.4-35.8); MEAN CORPUSCULAR VOLUME 79.4 fL (80-100); MEAN PLATELET VOLUME 8.2 fL (7.4-10.4); PLATELET COUNT 375 x10^3/uL (130-400); RED BLOOD COUNT 2.98 x10^6/uL (3.82-5.3); RED CELL DISTRIBUTION WIDTH 22.4 % (9.6-15.2); TOTAL PROTEIN 6.9 g/dL (6.4-8.2)
[2019-03-29 06:39] LABS: MD YES
[2019-03-29 06:40] LABS: ANISOCYTOSIS 1+; BAND#(MANUAL) 0.83 x10^3/uL; BANDS%(MANUAL) 3 % (0-7); EOS#(MANUAL) 0.28 x10^3/uL (0.0-0.4); EOS% (MANUAL) 1 % (1-7); HYPOCHROMIA 1+; LYMPH#(MANUAL) 1.93 x10^3/uL (1-3.4); LYMPHS% (MANUAL) 7 % (22-44); METAMYELOCYTES# (MANUAL) 0.28 x10^3/uL (0-0); METAMYELOCYTES% (MANUAL) 1 % (0-1); MICROCYTOSIS 1+; MONOS% (MANUAL) 4 % (2-9); MYELOCYTES# (MANUAL) 0.55 x10^3/uL (0-0); MYELOCYTES% (MANUAL) 2 % (0-0); SEG#(MANUAL) 22.55 x10^3/uL (1.8-6.8); SEGS% (MANUAL) 82 % (42-75)
[2019-03-29 06:41] LABS: <PLATELET ESTIMATE> ADEQUATE; <PLT MORPHOLOGY> NORMAL PLT MORPH; OVALOCYTES 1+; POLYCHROMASIA 1+
[2019-03-29 06:43] LABS: TOXIC GRAN 1+
[2019-03-29] MEDS: MULTIVITAMINS WITH IRON TABLET PO SCH (08:09)
[2019-03-29] MEDS: CHLORHEXIDINE 15 ML UDC MM SCH ×2 (08:09→20:24)
[2019-03-29] MEDS: METHADONE 10 MG TABLET PO SCH ×3 (08:10→20:24)
[2019-03-29] MEDS: DIAPER RASH/ZINC OXIDE PASTE 40%, 56GM TP SCH ×2 (08:10→20:24)
[2019-03-29] MEDS: PIPERACILLIN/TAZO/PMX 3.375GM 50 ML IV SCH ×3 (10:26→22:41)
[2019-03-29] MEDS: ONDANSETRON ODT 4 MG PO PRN (21:32)
[2019-03-29] MEDS: ZOLPIDEM 10MG TABLET PO PRN (22:41)
[2019-03-30 03:38] VITALS: BP 98/66
[2019-03-30] MEDS ORDERED: METOPROLOL TARTRATE 25 MG TABLET ONE (03:46)
[2019-03-30] MEDS: MORPHINE SULFATE 4 MG/ML, 1ML IVPush PRN ×5 (03:52→20:35)
[2019-03-30] MEDS ORDERED: METOPROLOL TARTRATE 25 MG TABLET PO ONE (04:00)
[2019-03-30] MEDS: PIPERACILLIN/TAZO/PMX 3.375GM 50 ML IV SCH ×4 (05:02→22:25)
[2019-03-30] MEDS: ACETAMINOPHEN 325 MG TABLET PO PRN ×2 (06:28→14:27)
[2019-03-30 07:21] VITALS: BP 98/64
[2019-03-30] MEDS: MULTIVITAMINS WITH IRON TABLET PO SCH (08:06)
[2019-03-30] MEDS: CHLORHEXIDINE 15 ML UDC MM SCH ×2 (08:06→20:35)
[2019-03-30] MEDS: METHADONE 10 MG TABLET PO SCH ×3 (08:06→20:35)
[2019-03-30] MEDS: DIAPER RASH/ZINC OXIDE PASTE 40%, 56GM TP SCH ×2 (08:07→20:43)
[2019-03-30 10:11] LABS: ANION GAP 9 mmol/L (5-15); CALCIUM 7.8 mg/dL (8.5-10.1); CHLORIDE 103 mmol/L (98-107); CREATININE 0.65 mg/dL (0.55-1.02)
[2019-03-30 10:23] LABS: MEAN CORPUSCULAR HGB CONC 31.3 g/dL (32.4-35.8); MEAN CORPUSCULAR VOLUME 80.1 fL (80-100); MEAN PLATELET VOLUME 7.7 fL (7.4-10.4); PLATELET COUNT 419 x10^3/uL (130-400); RED BLOOD COUNT 2.99 x10^6/uL (3.82-5.3); RED CELL DISTRIBUTION WIDTH 23.3 % (9.6-15.2)
[2019-03-30 10:27] LABS: MD YES
[2019-03-30 10:28] LABS: BAND#(MANUAL) 0.24 x10^3/uL; BANDS%(MANUAL) 1 % (0-7); LYMPH#(MANUAL) 2.39 x10^3/uL (1-3.4); LYMPHS% (MANUAL) 10 % (22-44); METAMYELOCYTES# (MANUAL) 0.72 x10^3/uL (0-0); METAMYELOCYTES% (MANUAL) 3 % (0-1); MONOS#(MANUAL) 0.72 x10^3/uL (0.3-2.7); MONOS% (MANUAL) 3 % (2-9); MYELOCYTES# (MANUAL) 0.24 x10^3/uL (0-0); MYELOCYTES% (MANUAL) 1 % (0-0); SEGS% (MANUAL) 82 % (42-75)
[2019-03-30 10:29] LABS: <PLATELET ESTIMATE> INCREASED; ANISOCYTOSIS 1+; HYPOCHROMIA 1+; MICROCYTOSIS 1+; OVALOCYTES 1+; POLYCHROMASIA 1+
[2019-03-30 10:32] LABS: <PLT MORPHOLOGY> NORMAL PLT MORPH
[2019-03-30] MEDS: GUAIFENESIN 200 MG TABLET PO PRN (10:45)
[2019-03-30 12:05] VITALS: BP 94/65
[2019-03-30] MEDS: ALBUTEROL SULFATE 2.5 MG/3 ML NPPB PRN (15:00)
[2019-03-30 16:29] VITALS: BP 97/63
[2019-03-30 19:18] VITALS: BP 96/65
[2019-03-30] MEDS: ZOLPIDEM 10MG TABLET PO PRN (20:43)
[2019-03-31] VITALS: BP 108/73
[2019-03-31] MEDS: ACETAMINOPHEN 325 MG TABLET PO PRN (00:19)
[2019-03-31] MEDS: MORPHINE SULFATE 4 MG/ML, 1ML IVPush PRN ×5 (03:11→20:10)
[2019-03-31] MEDS: PIPERACILLIN/TAZO/PMX 3.375GM 50 ML IV SCH ×4 (04:31→23:12)
[2019-03-31 04:34] VITALS: BP 93/60
[2019-03-31 05:50] LABS: MEAN CORPUSCULAR HEMOGLOBIN 25.7 pg (27.0-34.8); MEAN CORPUSCULAR HGB CONC 32.2 g/dL (32.4-35.8); MEAN CORPUSCULAR VOLUME 79.6 fL (80-100); MEAN PLATELET VOLUME 7.8 fL (7.4-10.4); PLATELET COUNT 489 x10^3/uL (130-400); RED BLOOD COUNT 3.15 x10^6/uL (3.82-5.3); RED CELL DISTRIBUTION WIDTH 23.7 % (9.6-15.2)
[2019-03-31 06:02] LABS: ALANINE AMINOTRANSFERASE 23 U/L (12-78); ALBUMIN 1.6 g/dL (3.4-5.0); ANION GAP 7 mmol/L (5-15); CALCIUM 7.9 mg/dL (8.5-10.1); CHLORIDE 102 mmol/L (98-107)
[2019-03-31 06:05] LABS: ALKALINE PHOSPHATASE 641 U/L (45-117); BILIRUBIN,TOTAL 1.7 mg/dL (0.2-1.0); CREATININE 0.58 mg/dL (0.55-1.02); TOTAL PROTEIN 6.8 g/dL (6.4-8.2)
[2019-03-31 06:35] LABS: MD YES
[2019-03-31 06:36] LABS: ANISOCYTOSIS 1+; BAND#(MANUAL) 0.73 x10^3/uL; BANDS%(MANUAL) 3 % (0-7); EOS#(MANUAL) 0.24 x10^3/uL (0.0-0.4); EOS% (MANUAL) 1 % (1-7); HYPOCHROMIA 1+; LYMPH#(MANUAL) 2.44 x10^3/uL (1-3.4); LYMPHS% (MANUAL) 10 % (22-44); METAMYELOCYTES# (MANUAL) 0.49 x10^3/uL (0-0); METAMYELOCYTES% (MANUAL) 2 % (0-1); MICROCYTOSIS 1+; MONOS#(MANUAL) 0.49 x10^3/uL (0.3-2.7); MONOS% (MANUAL) 2 % (2-9); MYELOCYTES# (MANUAL) 0.49 x10^3/uL (0-0); MYELOCYTES% (MANUAL) 2 % (0-0); POLYCHROMASIA 1+; SEG#(MANUAL) 19.52 x10^3/uL (1.8-6.8); SEGS% (MANUAL) 80 % (42-75)
[2019-03-31 06:37] LABS: OVALOCYTES 1+
[2019-03-31 06:38] LABS: <PLATELET ESTIMATE> INCREASED; <PLT MORPHOLOGY> NORMAL PLT MORPH
[2019-03-31 06:50] VITALS: BP 115/72
[2019-03-31] MEDS: CHLORHEXIDINE 15 ML UDC MM SCH ×2 (08:43→22:34)
[2019-03-31] MEDS: MULTIVITAMINS WITH IRON TABLET PO SCH (08:43)
[2019-03-31] MEDS: METHADONE 10 MG TABLET PO SCH ×5 (08:43→23:50)
[2019-03-31] MEDS: GUAIFENESIN 200 MG TABLET PO PRN (08:46)
[2019-03-31] MEDS: DIAPER RASH/ZINC OXIDE PASTE 40%, 56GM TP SCH ×2 (08:54→23:00)
[2019-03-31 12:30] VITALS: BP 99/65
[2019-03-31] MEDS ORDERED: OMNIPAQUE 350 MG/ML, 100ML BOTTLE ONE (16:24)
[2019-03-31] MEDS ORDERED: HEPARIN 5,000 UNITS/ML, 1ML IV PRN (17:00)
[2019-03-31] MEDS ORDERED: HEPARIN 25,000 UNITS/500ML PMX 500 ML IV PRN (17:00)
[2019-03-31] MEDS ORDERED: HEPARIN 5,000 UNITS/ML, 1ML IV ONE (17:00)
[2019-03-31] MEDS ORDERED: LIDOCAINE 1%, 20ML ONE (18:38)
[2019-03-31] MEDS: SODIUM CHLORIDE 0.9% IV SCH (20:09)
[2019-03-31] MEDS: ALTEPLASE IV SCH (20:09)
[2019-03-31 21:31] LABS: MEAN CORPUSCULAR HEMOGLOBIN 25.8 pg (27.0-34.8); MEAN CORPUSCULAR HGB CONC 31.8 g/dL (32.4-35.8); MEAN CORPUSCULAR VOLUME 81.1 fL (80-100); MEAN PLATELET VOLUME 7.5 fL (7.4-10.4); PLATELET COUNT 458 x10^3/uL (130-400); RED BLOOD COUNT 2.96 x10^6/uL (3.82-5.3); RED CELL DISTRIBUTION WIDTH 22.9 % (9.6-15.2)
[2019-03-31 21:47] LABS: MD YES
[2019-03-31 21:48] LABS: ANISOCYTOSIS 1+; BAND#(MANUAL) 0.42 x10^3/uL; BANDS%(MANUAL) 2 % (0-7); BASOS#(MANUAL) 0.21 x10^3/uL (0-0.1); BASOS% (MANUAL) 1 % (0-1); EOS#(MANUAL) 0.42 x10^3/uL (0.0-0.4); EOS% (MANUAL) 2 % (1-7); HYPOCHROMIA 1+; LYMPH#(MANUAL) 2.52 x10^3/uL (1-3.4); LYMPHS% (MANUAL) 12 % (22-44); METAMYELOCYTES# (MANUAL) 0.21 x10^3/uL (0-0); METAMYELOCYTES% (MANUAL) 1 % (0-1); MICROCYTOSIS 1+; MYELOCYTES# (MANUAL) 0.42 x10^3/uL (0-0); MYELOCYTES% (MANUAL) 2 % (0-0); OVALOCYTES 1+; POLYCHROMASIA 1+; SEGS% (MANUAL) 80 % (42-75)
[2019-03-31 21:49] LABS: TOXIC GRAN 1+
[2019-03-31 21:50] LABS: <PLATELET ESTIMATE> ADEQUATE; <PLT MORPHOLOGY> NORMAL PLT MORPH
[2019-04-01] MEDS: ALTEPLASE IV SCH ×2 (00:20→04:14)
[2019-04-01] MEDS: SODIUM CHLORIDE 0.9% IV SCH ×2 (00:20→04:14)
[2019-04-01] MEDS: MORPHINE SULFATE 4 MG/ML, 1ML IVPush PRN ×2 (00:38→04:30)
[2019-04-01] MEDS: ACETAMINOPHEN 325 MG TABLET PO PRN ×3 (00:46→21:00)
[2019-04-01] MEDS ORDERED: SODIUM CHLORIDE 0.9%, 500ML IVBOLUS ONE (02:30)
[2019-04-01] MEDS ORDERED: HYDROmorphone 2 MG/ML, 1ML IV PRN (02:30)
[2019-04-01] MEDS: PIPERACILLIN/TAZO/PMX 3.375GM 50 ML IV SCH ×3 (04:24→20:47)
[2019-04-01 05:29] LABS: ANION GAP 7 mmol/L (5-15); CALCIUM 7.5 mg/dL (8.5-10.1); CHLORIDE 106 mmol/L (98-107)
[2019-04-01 05:31] LABS: CREATININE 0.48 mg/dL (0.55-1.02)
[2019-04-01 06:18] LABS: MEAN CORPUSCULAR HEMOGLOBIN 25.4 pg (27.0-34.8); MEAN CORPUSCULAR HGB CONC 31.9 g/dL (32.4-35.8); MEAN CORPUSCULAR VOLUME 79.6 fL (80-100); MEAN PLATELET VOLUME 7.7 fL (7.4-10.4); PLATELET COUNT 439 x10^3/uL (130-400); RED BLOOD COUNT 2.77 x10^6/uL (3.82-5.3); RED CELL DISTRIBUTION WIDTH 23.2 % (9.6-15.2)
[2019-04-01 06:36] LABS: MD YES
[2019-04-01 06:38] LABS: ANISOCYTOSIS 1+; BAND#(MANUAL) 0.65 x10^3/uL; BANDS%(MANUAL) 3 % (0-7); LYMPH#(MANUAL) 1.94 x10^3/uL (1-3.4); LYMPHS% (MANUAL) 9 % (22-44); METAMYELOCYTES# (MANUAL) 0.22 x10^3/uL (0-0); METAMYELOCYTES% (MANUAL) 1 % (0-1); MICROCYTOSIS 1+; MONOS#(MANUAL) 1.08 x10^3/uL (0.3-2.7); MONOS% (MANUAL) 5 % (2-9); POLYCHROMASIA 1+; SEG#(MANUAL) 17.71 x10^3/uL (1.8-6.8); SEGS% (MANUAL) 82 % (42-75)
[2019-04-01 06:39] LABS: <PLATELET ESTIMATE> ADEQUATE; <PLT MORPHOLOGY> NORMAL PLT MORPH; HYPOCHROMIA 1+; OVALOCYTES 1+
[2019-04-01] MEDS ORDERED: DIAPER RASH/ZINC OXIDE PASTE 40%, 56GM TP PRN (09:00)
[2019-04-01] MEDS: MULTIVITAMINS WITH IRON TABLET PO SCH (09:53)
[2019-04-01] MEDS: CHLORHEXIDINE 15 ML UDC MM SCH ×2 (09:53→21:00)
[2019-04-01] MEDS: METHADONE 10 MG TABLET PO SCH ×3 (09:54→21:00)
[2019-04-01] MEDS: OXYcodone 5 MG/5 ML ORAL.SOL UDC PO PRN ×4 (10:04→21:58)
[2019-04-01] MEDS: GUAIFENESIN 200 MG TABLET PO PRN ×2 (10:04→15:52)
[2019-04-01 10:21] LABS: BILIRUBIN, DIRECT 1.1 mg/dL (0.1-0.2); BILIRUBIN,INDIRECT 0.6 mg/dL (0.0-2.0); BILIRUBIN,TOTAL 1.7 mg/dL (0.2-1.0)
[2019-04-01] MEDS ORDERED: OMNIPAQUE 350 MG/ML, 100ML BOTTLE ONE (11:28)
[2019-04-01] MEDS ORDERED: LIDOCAINE-MPF 1%, 5ML ONE (11:31)
[2019-04-01 13:50] LABS: D-DIMER (DIC) 28.27 ug/mlFEU (0.00-0.52); PROTIME 12.8 Seconds (9.6-11.5)
[2019-04-01] MEDS: GUAIFENESIN/DM 200-20MG, 10ML UDC PO PRN (21:01)
[2019-04-02] MEDS ORDERED: HEPARIN wt. based STROKE protocol MC PRN
[2019-04-02] MEDS ORDERED: ENOXAPARIN 80 MG/0.8 ML SQ SCH
[2019-04-02] MEDS: HEPARIN 25,000 UNITS/500ML PMX 500 ML IV PRN (00:26)
[2019-04-02] MEDS: ZOLPIDEM 10MG TABLET PO PRN ×2 (00:32→23:31)
[2019-04-02] MEDS: OXYcodone 5 MG/5 ML ORAL.SOL UDC PO PRN ×5 (02:00→23:31)
[2019-04-02] MEDS: GUAIFENESIN/DM 200-20MG, 10ML UDC PO PRN ×2 (02:00→22:27)
[2019-04-02] MEDS: PIPERACILLIN/TAZO/PMX 3.375GM 50 ML IV SCH ×4 (02:02→19:50)
[2019-04-02 04:29] LABS: MEAN CORPUSCULAR HGB CONC 31.3 g/dL (32.4-35.8); MEAN CORPUSCULAR VOLUME 80.1 fL (80-100); MEAN PLATELET VOLUME 7.3 fL (7.4-10.4); PLATELET COUNT 350 x10^3/uL (130-400); RED CELL DISTRIBUTION WIDTH 23.6 % (9.6-15.2)
[2019-04-02 04:34] LABS: ALANINE AMINOTRANSFERASE 24 U/L (12-78); ALBUMIN 1.4 g/dL (3.4-5.0); ANION GAP 8 mmol/L (5-15); CALCIUM 7.5 mg/dL (8.5-10.1); CHLORIDE 105 mmol/L (98-107); CREATININE 0.52 mg/dL (0.55-1.02)
[2019-04-02 04:36] LABS: ALKALINE PHOSPHATASE 620 U/L (45-117); BILIRUBIN,TOTAL 1.3 mg/dL (0.2-1.0); TOTAL PROTEIN 5.8 g/dL (6.4-8.2)
[2019-04-02 06:06] LABS: MD YES
[2019-04-02 06:11] LABS: <PLATELET ESTIMATE> ADEQUATE; <PLT MORPHOLOGY> NORMAL PLT MORPH; ANISOCYTOSIS 1+; BAND#(MANUAL) 0.16 x10^3/uL; BANDS%(MANUAL) 1 % (0-7); EOS#(MANUAL) 0.16 x10^3/uL (0.0-0.4); EOS% (MANUAL) 1 % (1-7); HYPOCHROMIA 1+; LYMPHS% (MANUAL) 19 % (22-44); METAMYELOCYTES# (MANUAL) 0.47 x10^3/uL (0-0); METAMYELOCYTES% (MANUAL) 3 % (0-1); MICROCYTOSIS 1+; MONOS#(MANUAL) 0.32 x10^3/uL (0.3-2.7); MONOS% (MANUAL) 2 % (2-9); MYELOCYTES# (MANUAL) 0.32 x10^3/uL (0-0); MYELOCYTES% (MANUAL) 2 % (0-0); OVALOCYTES 1+; POLYCHROMASIA 1+; SEG#(MANUAL) 11.38 x10^3/uL (1.8-6.8); SEGS% (MANUAL) 72 % (42-75)
[2019-04-02] MEDS: ALBUTEROL SULFATE 2.5 MG/3 ML NPPB PRN ×2 (07:10→22:32)
[2019-04-02] MEDS: GUAIFENESIN 200 MG TABLET PO PRN (07:30)
[2019-04-02] MEDS: CHLORHEXIDINE 15 ML UDC MM SCH ×2 (08:54→21:14)
[2019-04-02] MEDS: METHADONE 10 MG TABLET PO SCH ×3 (08:54→21:14)
[2019-04-02] MEDS: MULTIVITAMINS WITH IRON TABLET PO SCH (08:54)
[2019-04-02] MEDS: ACETAMINOPHEN 325 MG TABLET PO PRN ×2 (13:36→22:27)
[2019-04-03] MEDS: PIPERACILLIN/TAZO/PMX 3.375GM 50 ML IV SCH ×4 (01:53→21:20)
[2019-04-03] MEDS: OXYcodone 5 MG/5 ML ORAL.SOL UDC PO PRN ×5 (03:29→21:37)
[2019-04-03] MEDS: GUAIFENESIN/DM 200-20MG, 10ML UDC PO PRN (03:31)
[2019-04-03] MEDS: HEPARIN 25,000 UNITS/500ML PMX 500 ML IV PRN (04:10)
[2019-04-03 04:25] LABS: MEAN CORPUSCULAR HEMOGLOBIN 25.2 pg (27.0-34.8); MEAN CORPUSCULAR HGB CONC 30.8 g/dL (32.4-35.8); MEAN CORPUSCULAR VOLUME 81.7 fL (80-100); MEAN PLATELET VOLUME 7.8 fL (7.4-10.4); PLATELET COUNT 377 x10^3/uL (130-400); RED BLOOD COUNT 2.79 x10^6/uL (3.82-5.3); RED CELL DISTRIBUTION WIDTH 23.6 % (9.6-15.2)
[2019-04-03 04:30] LABS: ANION GAP 7 mmol/L (5-15); CALCIUM 7.5 mg/dL (8.5-10.1); CHLORIDE 104 mmol/L (98-107); CREATININE 0.48 mg/dL (0.55-1.02)
[2019-04-03 05:29] LABS: MD YES
[2019-04-03 05:32] LABS: ANISOCYTOSIS 1+; HYPOCHROMIA 1+; LYMPHS% (MANUAL) 13 % (22-44); MICROCYTOSIS 1+; MONOS#(MANUAL) 0.44 x10^3/uL (0.3-2.7); MONOS% (MANUAL) 3 % (2-9); MYELOCYTES# (MANUAL) 0.15 x10^3/uL (0-0); MYELOCYTES% (MANUAL) 1 % (0-0); POLYCHROMASIA 1+; SEG#(MANUAL) 12.12 x10^3/uL (1.8-6.8); SEGS% (MANUAL) 83 % (42-75)
[2019-04-03 05:33] LABS: <PLATELET ESTIMATE> ADEQUATE; <PLT MORPHOLOGY> NORMAL PLT MORPH; OVALOCYTES 1+
[2019-04-03] MEDS: ACETAMINOPHEN 325 MG TABLET PO PRN ×2 (07:57→14:33)
[2019-04-03] MEDS: METHADONE 10 MG TABLET PO SCH ×3 (08:56→21:20)
[2019-04-03] MEDS: CHLORHEXIDINE 15 ML UDC MM SCH ×2 (08:56→21:20)
[2019-04-03] MEDS: MULTIVITAMINS WITH IRON TABLET PO SCH (08:56)
[2019-04-03] MEDS: ENOXAPARIN 60 MG/0.6 ML SQ SCH (12:10)
[2019-04-03] MEDS: GUAIFENESIN 200 MG TABLET PO PRN ×2 (12:10→17:21)
[2019-04-03 17:43] VITALS: BP 87/59
[2019-04-03 21:30] VITALS: BP 94/67
[2019-04-03] MEDS: ZOLPIDEM 10MG TABLET PO PRN (21:37)
[2019-04-03 21:45] VITALS: BP 90/63
[2019-04-04] VITALS (8 sets, daily range): BP systolic 81–101; BP diastolic 55–68
[2019-04-04] MEDS: ENOXAPARIN 60 MG/0.6 ML SQ SCH ×3 (00:01→21:35)
[2019-04-04] MEDS: OXYcodone 5 MG/5 ML ORAL.SOL UDC PO PRN ×4 (01:32→21:35)
[2019-04-04] MEDS: GUAIFENESIN/DM 200-20MG, 10ML UDC PO PRN ×4 (03:32→21:34)
[2019-04-04] MEDS: PIPERACILLIN/TAZO/PMX 3.375GM 50 ML IV SCH ×4 (03:32→21:34)
[2019-04-04] MEDS: METHADONE 10 MG TABLET PO SCH ×3 (09:11→21:35)
[2019-04-04] MEDS: GUAIFENESIN 200 MG TABLET PO PRN ×2 (09:11→14:35)
[2019-04-04] MEDS: CHLORHEXIDINE 15 ML UDC MM SCH ×2 (09:11→21:00)
[2019-04-04] MEDS: MULTIVITAMINS WITH IRON TABLET PO SCH (09:12)
[2019-04-04 09:44] LABS: MEAN CORPUSCULAR HEMOGLOBIN 24.9 pg (27.0-34.8); MEAN CORPUSCULAR VOLUME 80.3 fL (80-100); MEAN PLATELET VOLUME 7.4 fL (7.4-10.4); PLATELET COUNT 424 x10^3/uL (130-400); RED BLOOD COUNT 2.82 x10^6/uL (3.82-5.3); RED CELL DISTRIBUTION WIDTH 23.5 % (9.6-15.2)
[2019-04-04 09:59] LABS: MD YES
[2019-04-04 10:00] LABS: <PLATELET ESTIMATE> INCREASED; <PLT MORPHOLOGY> NORMAL PLT MORPH; ANISOCYTOSIS 1+; HYPOCHROMIA 1+; LYMPHS% (MANUAL) 17 % (22-44); METAMYELOCYTES# (MANUAL) 0.15 x10^3/uL (0-0); METAMYELOCYTES% (MANUAL) 1 % (0-1); MICROCYTOSIS 1+; MONOS#(MANUAL) 0.46 x10^3/uL (0.3-2.7); MONOS% (MANUAL) 3 % (2-9); MYELOCYTES# (MANUAL) 0.31 x10^3/uL (0-0); MYELOCYTES% (MANUAL) 2 % (0-0); OVALOCYTES 1+; POLYCHROMASIA 1+; SEG#(MANUAL) 11.78 x10^3/uL (1.8-6.8); SEGS% (MANUAL) 77 % (42-75)
[2019-04-04] MEDS: ZOLPIDEM 10MG TABLET PO PRN (21:35)
[2019-04-05 02:18] VITALS: BP 98/66
[2019-04-05] MEDS: ONDANSETRON 2MG/ML, 2ML IVPush PRN (02:30)
[2019-04-05] MEDS: GUAIFENESIN/DM 200-20MG, 10ML UDC PO PRN ×2 (02:30→19:29)
[2019-04-05] MEDS: OXYcodone 5 MG/5 ML ORAL.SOL UDC PO PRN ×2 (02:30→09:02)
[2019-04-05] MEDS: PIPERACILLIN/TAZO/PMX 3.375GM 50 ML IV SCH ×4 (03:03→21:33)
[2019-04-05 05:08] LABS: MEAN CORPUSCULAR HEMOGLOBIN 25.3 pg (27.0-34.8); MEAN CORPUSCULAR HGB CONC 31.1 g/dL (32.4-35.8); MEAN CORPUSCULAR VOLUME 81.5 fL (80-100); MEAN PLATELET VOLUME 7.7 fL (7.4-10.4); PLATELET COUNT 385 x10^3/uL (130-400); RED BLOOD COUNT 3.14 x10^6/uL (3.82-5.3); RED CELL DISTRIBUTION WIDTH 22.7 % (9.6-15.2)
[2019-04-05 05:22] LABS: MD YES
[2019-04-05 05:24] LABS: LYMPH#(MANUAL) 1.51 x10^3/uL (1-3.4); LYMPHS% (MANUAL) 11 % (22-44); MONOS#(MANUAL) 0.69 x10^3/uL (0.3-2.7); MONOS% (MANUAL) 5 % (2-9); MYELOCYTES# (MANUAL) 0.14 x10^3/uL (0-0); MYELOCYTES% (MANUAL) 1 % (0-0); SEG#(MANUAL) 11.37 x10^3/uL (1.8-6.8); SEGS% (MANUAL) 83 % (42-75)
[2019-04-05 05:25] LABS: <PLATELET ESTIMATE> ADEQUATE; <PLT MORPHOLOGY> NORMAL PLT MORPH; ANISOCYTOSIS 1+; HYPOCHROMIA 1+; MICROCYTOSIS 1+; OVALOCYTES 1+; POLYCHROMASIA 1+
[2019-04-05 08:29] VITALS: BP 90/58
[2019-04-05] MEDS: METHADONE 10 MG TABLET PO SCH ×3 (09:01→21:28)
[2019-04-05] MEDS: CHLORHEXIDINE 15 ML UDC MM SCH (09:01)
[2019-04-05] MEDS: ENOXAPARIN 60 MG/0.6 ML SQ SCH ×2 (09:01→21:27)
[2019-04-05] MEDS: MULTIVITAMINS WITH IRON TABLET PO SCH (09:01)
[2019-04-05 13:26] VITALS: BP 93/63
[2019-04-05] MEDS: OXYcodone IR 5MG TABLET PO PRN ×3 (13:28→22:02)
[2019-04-05 20:32] VITALS: BP 97/66
[2019-04-05] MEDS: ZOLPIDEM 10MG TABLET PO PRN (22:02)
[2019-04-06] MEDS: GUAIFENESIN/DM 200-20MG, 10ML UDC PO PRN ×5 (00:25→20:55)
[2019-04-06 01:12] VITALS: BP 95/62
[2019-04-06] MEDS: PIPERACILLIN/TAZO/PMX 3.375GM 50 ML IV SCH ×4 (03:35→20:54)
[2019-04-06] MEDS: OXYcodone IR 5MG TABLET PO PRN ×4 (05:48→20:55)
[2019-04-06 06:16] LABS: MEAN CORPUSCULAR HEMOGLOBIN 25.6 pg (27.0-34.8); MEAN CORPUSCULAR HGB CONC 31.5 g/dL (32.4-35.8); MEAN CORPUSCULAR VOLUME 81.1 fL (80-100); MEAN PLATELET VOLUME 7.7 fL (7.4-10.4); PLATELET COUNT 402 x10^3/uL (130-400); RED BLOOD COUNT 3.14 x10^6/uL (3.82-5.3); RED CELL DISTRIBUTION WIDTH 22.7 % (9.6-15.2)
[2019-04-06 06:17] LABS: CHLORIDE 103 mmol/L (98-107)
[2019-04-06 06:33] LABS: ALANINE AMINOTRANSFERASE 19 U/L (12-78); ALBUMIN 1.6 g/dL (3.4-5.0); ALKALINE PHOSPHATASE 475 U/L (45-117); ANION GAP 8 mmol/L (5-15); BILIRUBIN,TOTAL 0.9 mg/dL (0.2-1.0); CALCIUM 8.2 mg/dL (8.5-10.1); MD YES; TOTAL PROTEIN 6.6 g/dL (6.4-8.2)
[2019-04-06 06:37] LABS: ANISOCYTOSIS 1+; BAND#(MANUAL) 0.13 x10^3/uL; BANDS%(MANUAL) 1 % (0-7); BASOS#(MANUAL) 0.13 x10^3/uL (0-0.1); BASOS% (MANUAL) 1 % (0-1); EOS#(MANUAL) 0.13 x10^3/uL (0.0-0.4); EOS% (MANUAL) 1 % (1-7); HYPOCHROMIA 1+; LYMPH#(MANUAL) 2.05 x10^3/uL (1-3.4); LYMPHS% (MANUAL) 16 % (22-44); METAMYELOCYTES# (MANUAL) 0.13 x10^3/uL (0-0); METAMYELOCYTES% (MANUAL) 1 % (0-1); MICROCYTOSIS 1+; MONOS#(MANUAL) 0.38 x10^3/uL (0.3-2.7); MONOS% (MANUAL) 3 % (2-9); POLYCHROMASIA 1+; SEG#(MANUAL) 9.86 x10^3/uL (1.8-6.8); SEGS% (MANUAL) 77 % (42-75)
[2019-04-06 06:38] LABS: <PLATELET ESTIMATE> INCREASED; <PLT MORPHOLOGY> NORMAL PLT MORPH; OVALOCYTES 1+
[2019-04-06 07:15] VITALS: BP 95/65
[2019-04-06] MEDS: APIXABAN 5 MG TABLET PO SCH ×2 (09:49→20:55)
[2019-04-06] MEDS: MULTIVITAMINS WITH IRON TABLET PO SCH (09:49)
[2019-04-06] MEDS: METHADONE 10 MG TABLET PO SCH ×3 (09:49→20:55)
[2019-04-06 12:40] VITALS: BP 93/64
[2019-04-06 15:15] LABS: OCCULT BLOOD NEGATIVE (NEGATIVE)
[2019-04-06] MEDS: ACETAMINOPHEN 325 MG TABLET PO PRN ×2 (16:36→20:55)
[2019-04-06 19:44] VITALS: BP 87/60
[2019-04-07] MEDS: GUAIFENESIN/DM 200-20MG, 10ML UDC PO PRN ×3 (02:01→19:53)
[2019-04-07] MEDS: OXYcodone IR 5MG TABLET PO PRN ×3 (02:02→19:53)
[2019-04-07] MEDS: ZOLPIDEM 10MG TABLET PO PRN (02:02)
[2019-04-07] MEDS: ACETAMINOPHEN 325 MG TABLET PO PRN ×3 (02:02→19:53)
[2019-04-07 02:27] VITALS: BP 94/59
[2019-04-07] MEDS: PIPERACILLIN/TAZO/PMX 3.375GM 50 ML IV SCH ×4 (03:09→22:12)
[2019-04-07] MEDS: CALCIUM CARBONATE 500 MG TAB.CHEW PO PRN ×2 (03:49→11:04)
[2019-04-07 04:06] LABS: HCT (SEDRATE) 26.5 % (34.6-47.8); MEAN CORPUSCULAR HEMOGLOBIN 25.9 pg (27.0-34.8); MEAN CORPUSCULAR HGB CONC 31.2 g/dL (32.4-35.8); MEAN PLATELET VOLUME 7.6 fL (7.4-10.4); PLATELET COUNT 404 x10^3/uL (130-400); RED CELL DISTRIBUTION WIDTH 22.2 % (9.6-15.2)
[2019-04-07 04:29] LABS: CHLORIDE 105 mmol/L (98-107)
[2019-04-07 04:32] LABS: MD YES
[2019-04-07 04:33] LABS: EOS#(MANUAL) 0.31 x10^3/uL (0.0-0.4); EOS% (MANUAL) 3 % (1-7); LYMPH#(MANUAL) 2.29 x10^3/uL (1-3.4); LYMPHS% (MANUAL) 22 % (22-44); MONOS#(MANUAL) 0.31 x10^3/uL (0.3-2.7); MONOS% (MANUAL) 3 % (2-9); MYELOCYTES# (MANUAL) 0.21 x10^3/uL (0-0); MYELOCYTES% (MANUAL) 2 % (0-0); SEG#(MANUAL) 7.28 x10^3/uL (1.8-6.8); SEGS% (MANUAL) 70 % (42-75)
[2019-04-07 04:34] LABS: ANISOCYTOSIS 1+; POLYCHROMASIA 1+
[2019-04-07 04:35] LABS: OVALOCYTES 1+
[2019-04-07 04:36] LABS: <PLATELET ESTIMATE> INCREASED; <PLT MORPHOLOGY> NORMAL PLT MORPH
[2019-04-07 04:42] LABS: ALANINE AMINOTRANSFERASE 19 U/L (12-78); ALBUMIN 1.7 g/dL (3.4-5.0); ALKALINE PHOSPHATASE 452 U/L (45-117); ANION GAP 8 mmol/L (5-15); BILIRUBIN,TOTAL 0.8 mg/dL (0.2-1.0); CALCIUM 7.9 mg/dL (8.5-10.1); CREATININE 0.54 mg/dL (0.55-1.02); TOTAL PROTEIN 6.4 g/dL (6.4-8.2)
[2019-04-07 07:09] VITALS: BP 95/62
[2019-04-07] MEDS: APIXABAN 5 MG TABLET PO SCH ×2 (09:53→19:53)
[2019-04-07] MEDS: MULTIVITAMINS WITH IRON TABLET PO SCH (09:53)
[2019-04-07] MEDS: METHADONE 10 MG TABLET PO SCH ×3 (09:53→19:53)
[2019-04-07 12:25] VITALS: BP 90/60
[2019-04-07] MEDS: ALBUTEROL SULFATE 2.5 MG/3 ML NPPB PRN (12:39)
[2019-04-07] MEDS ORDERED: CODEINE SULFATE 30 MG TABLET PO PRN (13:00)
[2019-04-07] MEDS: BENZONATATE 100 MG CAPSULE PO PRN ×2 (16:58→22:22)
[2019-04-07 20:00] VITALS: BP 96/68
[2019-04-08] MEDS: ZOLPIDEM 10MG TABLET PO PRN ×2 (01:04→23:03)
[2019-04-08] MEDS: OXYcodone IR 5MG TABLET PO PRN ×5 (01:04→22:03)
[2019-04-08] MEDS: GUAIFENESIN/DM 200-20MG, 10ML UDC PO PRN ×5 (01:13→22:03)
[2019-04-08 02:14] VITALS: BP 99/65
[2019-04-08] MEDS: ONDANSETRON 2MG/ML, 2ML IVPush PRN (04:01)
[2019-04-08] MEDS: ALBUTEROL SULFATE 2.5 MG/3 ML NPPB PRN (04:11)
[2019-04-08] MEDS: PIPERACILLIN/TAZO/PMX 3.375GM 50 ML IV SCH ×4 (04:40→22:03)
[2019-04-08] MEDS: ACETAMINOPHEN 325 MG TABLET PO PRN ×4 (05:46→22:03)
[2019-04-08 07:23] LABS: ALANINE AMINOTRANSFERASE 18 U/L (12-78); ALBUMIN 1.7 g/dL (3.4-5.0); ANION GAP 8 mmol/L (5-15); CALCIUM 8.3 mg/dL (8.5-10.1); CHLORIDE 105 mmol/L (98-107); CREATININE 0.61 mg/dL (0.55-1.02)
[2019-04-08 07:25] LABS: ALKALINE PHOSPHATASE 429 U/L (45-117); BILIRUBIN,TOTAL 0.8 mg/dL (0.2-1.0); TOTAL PROTEIN 6.7 g/dL (6.4-8.2)
[2019-04-08 07:40] LABS: MEAN CORPUSCULAR HEMOGLOBIN 25.2 pg (27.0-34.8); MEAN CORPUSCULAR HGB CONC 30.7 g/dL (32.4-35.8); MEAN CORPUSCULAR VOLUME 82.3 fL (80-100); MEAN PLATELET VOLUME 7.9 fL (7.4-10.4); PLATELET COUNT 430 x10^3/uL (130-400); RED BLOOD COUNT 3.32 x10^6/uL (3.82-5.3); RED CELL DISTRIBUTION WIDTH 23.2 % (9.6-15.2)
[2019-04-08 07:45] VITALS: BP 92/62
[2019-04-08 08:13] LABS: BASOPHILS # (AUTO) 0.04 x10^3/uL (0-0.1); BASOPHILS % (AUTO) 0 % (0-1); EOSINOPHILS # (AUTO) 0.05 x10^3/uL (0-0.4); EOSINOPHILS % (AUTO) 1 % (1-7); LYMPHOCYTES # (AUTO) 2.23 x10^3/uL (1-3.4); LYMPHOCYTES % (AUTO) 20 % (22-44); MD SCAN; MONOCYTES # (AUTO) 0.53 x10^3/uL (0.2-0.8); MONOCYTES % (AUTO) 5 % (2-9); NEUTROPHILS # (AUTO) 8.54 x10^3/uL (1.8-6.8); NEUTROPHILS % (AUTO) 75 % (42-75)
[2019-04-08] MEDS: APIXABAN 5 MG TABLET PO SCH ×2 (08:31→20:16)
[2019-04-08] MEDS: METHADONE 10 MG TABLET PO SCH ×3 (08:31→20:16)
[2019-04-08] MEDS: MULTIVITAMINS WITH IRON TABLET PO SCH (08:31)
[2019-04-08] MEDS: BENZONATATE 100 MG CAPSULE PO PRN ×2 (08:39→20:15)
[2019-04-08 14:44] VITALS: BP 90/61
[2019-04-08] MEDS ORDERED: OMNIPAQUE 350 MG/ML, 75ML BOTTLE ONE (15:28)
[2019-04-08 20:37] VITALS: BP 93/64
[2019-04-08 23:05] VITALS: BP 90/52
[2019-04-09] MEDS: ACETAMINOPHEN 325 MG TABLET PO PRN ×4 (03:11→20:20)
[2019-04-09] MEDS: GUAIFENESIN/DM 200-20MG, 10ML UDC PO PRN ×4 (03:12→20:20)
[2019-04-09] MEDS: OXYcodone IR 5MG TABLET PO PRN ×4 (03:12→20:20)
[2019-04-09] MEDS: PIPERACILLIN/TAZO/PMX 3.375GM 50 ML IV SCH ×4 (04:05→22:42)
[2019-04-09 04:39] LABS: MEAN CORPUSCULAR HEMOGLOBIN 26.2 pg (27.0-34.8); MEAN CORPUSCULAR HGB CONC 31.4 g/dL (32.4-35.8); MEAN CORPUSCULAR VOLUME 83.5 fL (80-100); MEAN PLATELET VOLUME 7.8 fL (7.4-10.4); PLATELET COUNT 443 x10^3/uL (130-400); RED BLOOD COUNT 3.44 x10^6/uL (3.82-5.3); RED CELL DISTRIBUTION WIDTH 23.3 % (9.6-15.2)
[2019-04-09 04:44] LABS: ALANINE AMINOTRANSFERASE 19 U/L (12-78); ALBUMIN 1.8 g/dL (3.4-5.0); ANION GAP 8 mmol/L (5-15); CHLORIDE 107 mmol/L (98-107); CREATININE 0.55 mg/dL (0.55-1.02)
[2019-04-09 04:46] LABS: ALKALINE PHOSPHATASE 398 U/L (45-117); BILIRUBIN,TOTAL 0.7 mg/dL (0.2-1.0); TOTAL PROTEIN 6.8 g/dL (6.4-8.2)
[2019-04-09 05:59] LABS: BASOPHILS # (AUTO) 0.04 x10^3/uL (0-0.1); BASOPHILS % (AUTO) 0 % (0-1); EOSINOPHILS # (AUTO) 0.27 x10^3/uL (0-0.4); EOSINOPHILS % (AUTO) 3 % (1-7); LYMPHOCYTES # (AUTO) 1.82 x10^3/uL (1-3.4); LYMPHOCYTES % (AUTO) 18 % (22-44); MD SCAN; MONOCYTES # (AUTO) 0.59 x10^3/uL (0.2-0.8); MONOCYTES % (AUTO) 6 % (2-9); NEUTROPHILS # (AUTO) 7.43 x10^3/uL (1.8-6.8); NEUTROPHILS % (AUTO) 73 % (42-75)
[2019-04-09 07:56] VITALS: BP 99/69
[2019-04-09] MEDS: MULTIVITAMINS WITH IRON TABLET PO SCH (09:29)
[2019-04-09] MEDS: APIXABAN 5 MG TABLET PO SCH ×2 (09:29→20:20)
[2019-04-09] MEDS: METHADONE 10 MG TABLET PO SCH ×3 (09:29→20:20)
[2019-04-09 12:47] VITALS: BP 95/62
[2019-04-09 20:08] VITALS: BP 91/61
[2019-04-09 20:18] VITALS: BP 94/62
[2019-04-09] MEDS: ZOLPIDEM 10MG TABLET PO PRN (22:42)
[2019-04-10 00:17] VITALS: BP 96/65
[2019-04-10] MEDS: OXYcodone IR 5MG TABLET PO PRN ×4 (02:57→19:59)
[2019-04-10] MEDS: ACETAMINOPHEN 325 MG TABLET PO PRN ×4 (02:57→19:59)
[2019-04-10] MEDS: GUAIFENESIN/DM 200-20MG, 10ML UDC PO PRN ×4 (03:03→19:59)
[2019-04-10] MEDS: PIPERACILLIN/TAZO/PMX 3.375GM 50 ML IV SCH ×4 (04:38→22:48)
[2019-04-10 05:17] LABS: MEAN CORPUSCULAR HEMOGLOBIN 26.3 pg (27.0-34.8); MEAN CORPUSCULAR HGB CONC 31.9 g/dL (32.4-35.8); MEAN CORPUSCULAR VOLUME 82.6 fL (80-100); MEAN PLATELET VOLUME 7.8 fL (7.4-10.4); PLATELET COUNT 429 x10^3/uL (130-400); RED CELL DISTRIBUTION WIDTH 22.8 % (9.6-15.2)
[2019-04-10 05:26] LABS: CHLORIDE 105 mmol/L (98-107)
[2019-04-10 05:32] LABS: ALANINE AMINOTRANSFERASE 18 U/L (12-78); ALBUMIN 1.8 g/dL (3.4-5.0); ALKALINE PHOSPHATASE 380 U/L (45-117); ANION GAP 8 mmol/L (5-15); BILIRUBIN,TOTAL 0.7 mg/dL (0.2-1.0); CALCIUM 8.6 mg/dL (8.5-10.1); CREATININE 0.59 mg/dL (0.55-1.02); TOTAL PROTEIN 7.1 g/dL (6.4-8.2)
[2019-04-10 05:58] LABS: BASOPHILS # (AUTO) 0.02 x10^3/uL (0-0.1); BASOPHILS % (AUTO) 0 % (0-1); EOSINOPHILS # (AUTO) 0.25 x10^3/uL (0-0.4); EOSINOPHILS % (AUTO) 3 % (1-7); LYMPHOCYTES # (AUTO) 1.94 x10^3/uL (1-3.4); LYMPHOCYTES % (AUTO) 20 % (22-44); MD SCAN; MONOCYTES # (AUTO) 0.46 x10^3/uL (0.2-0.8); MONOCYTES % (AUTO) 5 % (2-9); NEUTROPHILS # (AUTO) 7.27 x10^3/uL (1.8-6.8); NEUTROPHILS % (AUTO) 73 % (42-75)
[2019-04-10 07:45] VITALS: BP 109/76
[2019-04-10] MEDS: MULTIVITAMINS WITH IRON TABLET PO SCH (09:01)
[2019-04-10] MEDS: METHADONE 10 MG TABLET PO SCH ×3 (09:01→19:59)
[2019-04-10] MEDS: APIXABAN 5 MG TABLET PO SCH ×2 (10:01→19:59)
[2019-04-10] MEDS: BENZONATATE 100 MG CAPSULE PO PRN ×2 (10:01→22:48)
[2019-04-10] MEDS: CYCLOBENZAPRINE 10 MG TABLET PO PRN (14:07)
[2019-04-10 15:45] VITALS: BP 100/71
[2019-04-10 19:36] VITALS: BP 100/69
[2019-04-10] MEDS: ZOLPIDEM 10MG TABLET PO PRN (22:47)
[2019-04-11 00:02] VITALS: BP 92/60
[2019-04-11] MEDS: GUAIFENESIN/DM 200-20MG, 10ML UDC PO PRN ×2 (00:03→04:47)
[2019-04-11] MEDS: OXYcodone IR 5MG TABLET PO PRN ×6 (00:03→23:23)
[2019-04-11] MEDS: CALCIUM CARBONATE 500 MG TAB.CHEW PO PRN (04:46)
[2019-04-11] MEDS: PIPERACILLIN/TAZO/PMX 3.375GM 50 ML IV SCH ×4 (04:47→23:13)
[2019-04-11] MEDS: ACETAMINOPHEN 325 MG TABLET PO PRN ×3 (04:47→13:40)
[2019-04-11] MEDS: CYCLOBENZAPRINE 10 MG TABLET PO PRN ×2 (04:48→11:14)
[2019-04-11] MEDS: APIXABAN 5 MG TABLET PO SCH ×2 (08:54→20:46)
[2019-04-11] MEDS: METHADONE 10 MG TABLET PO SCH ×3 (08:54→20:45)
[2019-04-11] MEDS: MULTIVITAMINS WITH IRON TABLET PO SCH (08:54)
[2019-04-11 09:00] VITALS: BP 106/71
[2019-04-11 16:00] VITALS: BP 93/62
[2019-04-11 19:02] VITALS: BP 91/62
[2019-04-11] MEDS: BENZONATATE 100 MG CAPSULE PO PRN (20:51)
[2019-04-11] MEDS: ZOLPIDEM 10MG TABLET PO PRN (23:23)
[2019-04-12] MEDS: ONDANSETRON 2MG/ML, 2ML IVPush PRN (00:12)
[2019-04-12 00:23] VITALS: BP 95/66
[2019-04-12 02:37] LABS: HCT (SEDRATE) 30.6 % (34.6-47.8)
[2019-04-12] MEDS: BENZONATATE 100 MG CAPSULE PO PRN ×2 (04:44→14:50)
[2019-04-12] MEDS: OXYcodone IR 5MG TABLET PO PRN ×4 (04:44→19:51)
[2019-04-12] MEDS: PIPERACILLIN/TAZO/PMX 3.375GM 50 ML IV SCH ×4 (04:44→23:16)
[2019-04-12 06:52] VITALS: BP 93/61
[2019-04-12] MEDS: ACETAMINOPHEN 325 MG TABLET PO PRN ×2 (08:00→14:49)
[2019-04-12] MEDS: CYCLOBENZAPRINE 10 MG TABLET PO PRN (08:00)
[2019-04-12] MEDS: GUAIFENESIN/DM 200-20MG, 10ML UDC PO PRN (08:01)
[2019-04-12] MEDS: MULTIVITAMINS WITH IRON TABLET PO SCH (09:53)
[2019-04-12] MEDS: APIXABAN 5 MG TABLET PO SCH ×2 (09:53→21:17)
[2019-04-12] MEDS: METHADONE 10 MG TABLET PO SCH ×3 (09:55→21:17)
[2019-04-12 15:11] VITALS: BP 95/63
[2019-04-12 19:35] LABS: MEAN CORPUSCULAR HEMOGLOBIN 25.9 pg (27.0-34.8); MEAN CORPUSCULAR HGB CONC 31.4 g/dL (32.4-35.8); MEAN CORPUSCULAR VOLUME 82.3 fL (80-100); MEAN PLATELET VOLUME 7.5 fL (7.4-10.4); PLATELET COUNT 458 x10^3/uL (130-400); RED CELL DISTRIBUTION WIDTH 22.4 % (9.6-15.2)
[2019-04-12 19:38] LABS: BASOPHILS # (AUTO) 0.04 x10^3/uL (0-0.1); BASOPHILS % (AUTO) 0 % (0-1); EOSINOPHILS # (AUTO) 0.23 x10^3/uL (0-0.4); EOSINOPHILS % (AUTO) 2 % (1-7); LYMPHOCYTES # (AUTO) 2.08 x10^3/uL (1-3.4); LYMPHOCYTES % (AUTO) 20 % (22-44); MD MORPH REVIEW ONLY; MONOCYTES # (AUTO) 0.55 x10^3/uL (0.2-0.8); MONOCYTES % (AUTO) 5 % (2-9); NEUTROPHILS # (AUTO) 7.42 x10^3/uL (1.8-6.8); NEUTROPHILS % (AUTO) 72 % (42-75)
[2019-04-12 19:39] LABS: ANISOCYTOSIS 1+; HYPOCHROMIA 1+; OVALOCYTES 1+
[2019-04-12 19:40] LABS: <PLATELET ESTIMATE> INCREASED; SPHEROCYTES 1+
[2019-04-12 19:41] LABS: <PLT MORPHOLOGY> NORMAL PLT MORPH
[2019-04-12 20:19] VITALS: BP 90/62
[2019-04-12] MEDS: ZOLPIDEM 10MG TABLET PO PRN (21:31)
[2019-04-13] MEDS: OXYcodone IR 5MG TABLET PO PRN ×5 (01:59→22:29)
[2019-04-13] MEDS: GUAIFENESIN/DM 200-20MG, 10ML UDC PO PRN ×2 (02:07→18:40)
[2019-04-13 02:11] VITALS: BP 102/70
[2019-04-13] MEDS: PIPERACILLIN/TAZO/PMX 3.375GM 50 ML IV SCH ×4 (05:14→22:30)
[2019-04-13] MEDS: ONDANSETRON ODT 4 MG PO PRN (05:42)
[2019-04-13] MEDS: BENZONATATE 100 MG CAPSULE PO PRN ×2 (05:42→20:41)
[2019-04-13 07:23] VITALS: BP 98/67
[2019-04-13] MEDS: APIXABAN 5 MG TABLET PO SCH ×2 (09:04→20:41)
[2019-04-13] MEDS: MULTIVITAMINS WITH IRON TABLET PO SCH (09:04)
[2019-04-13] MEDS: METHADONE 10 MG TABLET PO SCH ×3 (09:05→20:41)
[2019-04-13 12:37] VITALS: BP 99/68
[2019-04-13 20:33] VITALS: BP 103/69
[2019-04-13] MEDS: ZOLPIDEM 10MG TABLET PO PRN (22:28)
[2019-04-14 02:36] VITALS: BP 92/61
[2019-04-14] MEDS: OXYcodone IR 5MG TABLET PO PRN ×5 (03:32→21:28)
[2019-04-14] MEDS: PIPERACILLIN/TAZO/PMX 3.375GM 50 ML IV SCH (04:51)
[2019-04-14] MEDS: BENZONATATE 100 MG CAPSULE PO PRN ×3 (04:51→21:28)
[2019-04-14 05:00] LABS: BASOPHILS # (AUTO) 0.03 x10^3/uL (0-0.1); BASOPHILS % (AUTO) 0 % (0-1); EOSINOPHILS % (AUTO) 1 % (1-7); LYMPHOCYTES # (AUTO) 1.77 x10^3/uL (1-3.4); LYMPHOCYTES % (AUTO) 18 % (22-44); MD NO; MEAN CORPUSCULAR HEMOGLOBIN 25.8 pg (27.0-34.8); MEAN CORPUSCULAR HGB CONC 31.2 g/dL (32.4-35.8); MEAN CORPUSCULAR VOLUME 82.6 fL (80-100); MEAN PLATELET VOLUME 7.6 fL (7.4-10.4); MONOCYTES # (AUTO) 0.52 x10^3/uL (0.2-0.8); MONOCYTES % (AUTO) 5 % (2-9); NEUTROPHILS # (AUTO) 7.68 x10^3/uL (1.8-6.8); NEUTROPHILS % (AUTO) 76 % (42-75); PLATELET COUNT 363 x10^3/uL (130-400); RED BLOOD COUNT 3.58 x10^6/uL (3.82-5.3); RED CELL DISTRIBUTION WIDTH 21.8 % (9.6-15.2)
[2019-04-14 05:09] LABS: ALANINE AMINOTRANSFERASE 21 U/L (12-78); ALBUMIN 1.8 g/dL (3.4-5.0); ANION GAP 10 mmol/L (5-15); CALCIUM 8.1 mg/dL (8.5-10.1); CHLORIDE 104 mmol/L (98-107); CREATININE 0.57 mg/dL (0.55-1.02)
[2019-04-14 05:11] LABS: ALKALINE PHOSPHATASE 399 U/L (45-117); BILIRUBIN,TOTAL 0.9 mg/dL (0.2-1.0); TOTAL PROTEIN 7.1 g/dL (6.4-8.2)
[2019-04-14 06:58] VITALS: BP 92/62
[2019-04-14] MEDS: MULTIVITAMINS WITH IRON TABLET PO SCH (08:24)
[2019-04-14] MEDS: CALCIUM CARBONATE 500 MG TAB.CHEW PO SCH ×2 (08:24→21:15)
[2019-04-14] MEDS: GUAIFENESIN/DM 200-20MG, 10ML UDC PO PRN ×3 (08:25→23:38)
[2019-04-14] MEDS: MULTIVITS,STRESS FORMULA 1 TABLET PO SCH (08:25)
[2019-04-14] MEDS: METHADONE 10 MG TABLET PO SCH ×3 (08:25→21:15)
[2019-04-14] MEDS: ASCORBIC ACID 500 MG TABLET PO SCH ×2 (08:25→16:19)
[2019-04-14] MEDS: APIXABAN 5 MG TABLET PO SCH ×2 (08:25→21:15)
[2019-04-14] MEDS: CEFTRIAXONE PMX 2GM/50ML 50 ML IV SCH (11:01)
[2019-04-14] MEDS ORDERED: DIPHENHYDRAMINE 25 MG CAPSULE ONE (11:10)
[2019-04-14] MEDS: DIPHENHYDRAMINE 25 MG CAPSULE PO PRN ×2 (11:11→21:15)
[2019-04-14 12:25] VITALS: BP 108/75
[2019-04-14] MEDS ORDERED: DIPHENHYDRAMINE 50 MG/ML, 1ML ONE (13:41)
[2019-04-14] MEDS ORDERED: DIPHENHYDRAMINE 50 MG/ML, 1ML IVPush ONE (14:00)
[2019-04-14] MEDS: CHOLECALCIFEROL 400 UNITS/ML ORAL SOL PO SCH (17:31)
[2019-04-14 20:00] VITALS: BP 108/68
[2019-04-14] MEDS: ZOLPIDEM 10MG TABLET PO PRN (21:28)
[2019-04-15 02:00] VITALS: BP 91/65
[2019-04-15] MEDS: OXYcodone IR 5MG TABLET PO PRN ×5 (02:23→20:42)
[2019-04-15] MEDS: ACETAMINOPHEN 325 MG TABLET PO PRN (04:57)
[2019-04-15] MEDS: BENZONATATE 100 MG CAPSULE PO PRN ×2 (04:57→16:47)
[2019-04-15] MEDS: CYCLOBENZAPRINE 10 MG TABLET PO PRN (04:57)
[2019-04-15 05:39] LABS: ANION GAP 7 mmol/L (5-15); CALCIUM 8.3 mg/dL (8.5-10.1); CHLORIDE 105 mmol/L (98-107)
[2019-04-15 05:42] LABS: ALANINE AMINOTRANSFERASE 31 U/L (12-78); ALKALINE PHOSPHATASE 479 U/L (45-117); BILIRUBIN,TOTAL 0.9 mg/dL (0.2-1.0); CREATININE 0.53 mg/dL (0.55-1.02); TOTAL PROTEIN 7.3 g/dL (6.4-8.2)
[2019-04-15 06:40] VITALS: BP 92/63
[2019-04-15] MEDS: GUAIFENESIN/DM 200-20MG, 10ML UDC PO PRN (07:34)
[2019-04-15] MEDS ORDERED: CATHFLO-ALTEPLASE 2 MG/2 ML CATHFLUSH ONE ×2 (09:00)
[2019-04-15] MEDS: MULTIVITS,STRESS FORMULA 1 TABLET PO SCH (09:18)
[2019-04-15] MEDS: ASCORBIC ACID 500 MG TABLET PO SCH ×2 (09:18→16:47)
[2019-04-15] MEDS: MULTIVITAMINS WITH IRON TABLET PO SCH (09:18)
[2019-04-15] MEDS: METHADONE 10 MG TABLET PO SCH ×3 (09:18→20:42)
[2019-04-15] MEDS: APIXABAN 5 MG TABLET PO SCH ×2 (09:18→20:42)
[2019-04-15] MEDS: CALCIUM CARBONATE 500 MG TAB.CHEW PO SCH ×2 (09:18→20:42)
[2019-04-15] MEDS: DIPHENHYDRAMINE 25 MG CAPSULE PO PRN (11:10)
[2019-04-15] MEDS: CEFTRIAXONE PMX 2GM/50ML 50 ML IV SCH (11:29)
[2019-04-15 12:20] VITALS: BP 103/67
[2019-04-15] MEDS ORDERED: DIPHENHYDRAMINE 50 MG/ML, 1ML ONE (13:42)
[2019-04-15] MEDS ORDERED: DIPHENHYDRAMINE 50 MG/ML, 1ML IVPush ONE ×2 (14:00)
[2019-04-15] MEDS ORDERED: DIPHENHYDRAMINE 25 MG CAPSULE PO PRN (14:00)
[2019-04-15] MEDS: CHOLECALCIFEROL 400 UNITS/ML ORAL SOL PO SCH (16:47)
[2019-04-15 19:55] VITALS: BP 100/65
[2019-04-16 01:56] VITALS: BP 95/61
[2019-04-16] MEDS: GUAIFENESIN/DM 200-20MG, 10ML UDC PO PRN ×4 (05:52→21:41)
[2019-04-16] MEDS: BENZONATATE 100 MG CAPSULE PO PRN ×3 (05:53→21:40)
[2019-04-16] MEDS: OXYcodone IR 5MG TABLET PO PRN ×4 (05:53→20:40)
[2019-04-16] MEDS: CYCLOBENZAPRINE 10 MG TABLET PO PRN (05:53)
[2019-04-16] MEDS: ACETAMINOPHEN 325 MG TABLET PO PRN (05:53)
[2019-04-16 07:25] VITALS: BP 98/69
[2019-04-16] MEDS: ASCORBIC ACID 500 MG TABLET PO SCH ×2 (09:06→16:47)
[2019-04-16] MEDS: MULTIVITS,STRESS FORMULA 1 TABLET PO SCH (09:06)
[2019-04-16] MEDS: MULTIVITAMINS WITH IRON TABLET PO SCH (09:06)
[2019-04-16] MEDS: APIXABAN 5 MG TABLET PO SCH ×2 (09:06→20:40)
[2019-04-16] MEDS: CALCIUM CARBONATE 500 MG TAB.CHEW PO SCH ×2 (09:06→20:41)
[2019-04-16] MEDS: METHADONE 10 MG TABLET PO SCH ×3 (09:07→20:40)
[2019-04-16 13:30] VITALS: BP 89/59
[2019-04-16] MEDS: CHOLECALCIFEROL 400 UNITS TABLET PO SCH (16:47)
[2019-04-16] MEDS: ERTAPENEM 1 GM in SODIUM CHLORIDE 0.9% 50 ML IV SCH (17:47)
[2019-04-16 19:33] VITALS: BP 100/70
[2019-04-16] MEDS: ZOLPIDEM 10MG TABLET PO PRN (21:41)
[2019-04-17 02:51] VITALS: BP 103/68
[2019-04-17] MEDS: OXYcodone IR 5MG TABLET PO PRN ×4 (05:11→19:48)
[2019-04-17] MEDS: BENZONATATE 100 MG CAPSULE PO PRN ×3 (05:11→19:48)
[2019-04-17] MEDS: GUAIFENESIN/DM 200-20MG, 10ML UDC PO PRN ×3 (05:12→19:48)
[2019-04-17 07:15] VITALS: BP 101/74
[2019-04-17] MEDS: MULTIVITAMINS WITH IRON TABLET PO SCH (07:37)
[2019-04-17] MEDS: METHADONE 10 MG TABLET PO SCH ×3 (07:37→19:48)
[2019-04-17] MEDS: ASCORBIC ACID 500 MG TABLET PO SCH ×2 (07:37→16:18)
[2019-04-17] MEDS: MULTIVITS,STRESS FORMULA 1 TABLET PO SCH (07:38)
[2019-04-17] MEDS: APIXABAN 5 MG TABLET PO SCH ×2 (07:38→19:48)
[2019-04-17] MEDS: CALCIUM CARBONATE 500 MG TAB.CHEW PO SCH ×2 (07:38→19:48)
[2019-04-17 12:46] VITALS: BP 98/66
[2019-04-17] MEDS: CHOLECALCIFEROL 400 UNITS TABLET PO SCH (16:18)
[2019-04-17] MEDS: ERTAPENEM 1 GM in SODIUM CHLORIDE 0.9% 50 ML IV SCH (17:52)
[2019-04-17 19:15] VITALS: BP 95/60
[2019-04-17] MEDS: ZOLPIDEM 10MG TABLET PO PRN (22:41)
[2019-04-18 00:34] VITALS: BP 94/60
[2019-04-18] MEDS: OXYcodone IR 5MG TABLET PO PRN ×5 (00:36→20:45)
[2019-04-18] MEDS: BENZONATATE 100 MG CAPSULE PO PRN ×3 (03:25→21:44)
[2019-04-18] MEDS: GUAIFENESIN/DM 200-20MG, 10ML UDC PO PRN ×3 (03:25→21:44)
[2019-04-18 07:55] VITALS: BP 99/65
[2019-04-18] MEDS ORDERED: GUAIFENESIN/DM 200-20MG, 10ML UDC PO PRN (09:30)
[2019-04-18] MEDS: MULTIVITS,STRESS FORMULA 1 TABLET PO SCH (09:44)
[2019-04-18] MEDS: ASCORBIC ACID 500 MG TABLET PO SCH ×2 (09:44→16:22)
[2019-04-18] MEDS: CALCIUM CARBONATE 500 MG TAB.CHEW PO SCH ×2 (09:44→20:45)
[2019-04-18] MEDS: METHADONE 10 MG TABLET PO SCH ×3 (09:44→20:44)
[2019-04-18] MEDS: APIXABAN 5 MG TABLET PO SCH ×2 (09:44→20:44)
[2019-04-18] MEDS: MULTIVITAMINS WITH IRON TABLET PO SCH (09:44)
[2019-04-18 12:51] VITALS: BP 97/66
[2019-04-18] MEDS: CHOLECALCIFEROL 400 UNITS TABLET PO SCH (16:21)
[2019-04-18] MEDS: ERTAPENEM 1 GM in SODIUM CHLORIDE 0.9% 50 ML IV SCH (18:37)
[2019-04-18 19:04] VITALS: BP 95/62
[2019-04-18] MEDS: ZOLPIDEM 10MG TABLET PO PRN (21:44)
[2019-04-19 00:41] VITALS: BP 97/63
[2019-04-19] MEDS: OXYcodone IR 5MG TABLET PO PRN ×5 (04:16→22:48)
[2019-04-19] MEDS: BENZONATATE 100 MG CAPSULE PO PRN ×4 (04:57→18:12)
[2019-04-19] MEDS: GUAIFENESIN/DM 200-20MG, 10ML UDC PO PRN ×5 (04:57→22:48)
[2019-04-19 07:25] VITALS: BP 104/72
[2019-04-19] MEDS: MULTIVITS,STRESS FORMULA 1 TABLET PO SCH (08:55)
[2019-04-19] MEDS: APIXABAN 5 MG TABLET PO SCH ×2 (08:55→21:00)
[2019-04-19] MEDS: CALCIUM CARBONATE 500 MG TAB.CHEW PO SCH ×2 (08:55→21:00)
[2019-04-19] MEDS: MULTIVITAMINS WITH IRON TABLET PO SCH (08:55)
[2019-04-19] MEDS: METHADONE 10 MG TABLET PO SCH ×3 (08:56→21:00)
[2019-04-19] MEDS: ASCORBIC ACID 500 MG TABLET PO SCH ×2 (08:56→17:16)
[2019-04-19 13:15] VITALS: BP 98/64
[2019-04-19] MEDS: CHOLECALCIFEROL 400 UNITS TABLET PO SCH (17:16)
[2019-04-19] MEDS: CYCLOBENZAPRINE 10 MG TABLET PO PRN (17:17)
[2019-04-19] MEDS: ERTAPENEM 1 GM in SODIUM CHLORIDE 0.9% 50 ML IV SCH (18:13)
[2019-04-19 18:57] VITALS: BP 100/68
[2019-04-19] MEDS: ZOLPIDEM 10MG TABLET PO PRN (22:51)
[2019-04-20 01:08] VITALS: BP 96/65
[2019-04-20] MEDS: BENZONATATE 100 MG CAPSULE PO PRN (03:01)
[2019-04-20] MEDS: OXYcodone IR 5MG TABLET PO PRN ×5 (03:02→23:07)
[2019-04-20] MEDS: ASCORBIC ACID 500 MG TABLET PO SCH ×2 (07:16→16:45)
[2019-04-20] MEDS: GUAIFENESIN/DM 200-20MG, 10ML UDC PO PRN ×3 (07:19→21:27)
[2019-04-20 07:25] VITALS: BP 101/69
[2019-04-20] MEDS: MULTIVITAMINS WITH IRON TABLET PO SCH (09:03)
[2019-04-20] MEDS: APIXABAN 5 MG TABLET PO SCH ×2 (09:03→21:27)
[2019-04-20] MEDS: MULTIVITS,STRESS FORMULA 1 TABLET PO SCH (09:03)
[2019-04-20] MEDS: METHADONE 10 MG TABLET PO SCH ×3 (09:03→21:27)
[2019-04-20] MEDS: CALCIUM CARBONATE 500 MG TAB.CHEW PO SCH ×2 (09:03→21:27)
[2019-04-20 13:30] LABS: BASOPHILS # (AUTO) 0.05 x10^3/uL (0-0.1); BASOPHILS % (AUTO) 1 % (0-1); EOSINOPHILS # (AUTO) 0.21 x10^3/uL (0-0.4); EOSINOPHILS % (AUTO) 3 % (1-7); LYMPHOCYTES # (AUTO) 2.43 x10^3/uL (1-3.4); LYMPHOCYTES % (AUTO) 31 % (22-44); MD NO; MEAN CORPUSCULAR HEMOGLOBIN 24.9 pg (27.0-34.8); MEAN CORPUSCULAR HGB CONC 30.8 g/dL (32.4-35.8); MEAN CORPUSCULAR VOLUME 80.7 fL (80-100); MEAN PLATELET VOLUME 7.5 fL (7.4-10.4); MONOCYTES # (AUTO) 0.67 x10^3/uL (0.2-0.8); MONOCYTES % (AUTO) 9 % (2-9); NEUTROPHILS # (AUTO) 4.55 x10^3/uL (1.8-6.8); NEUTROPHILS % (AUTO) 58 % (42-75); PLATELET COUNT 375 x10^3/uL (130-400); RED BLOOD COUNT 4.15 x10^6/uL (3.82-5.3); RED CELL DISTRIBUTION WIDTH 21.1 % (9.6-15.2)
[2019-04-20 13:35] VITALS: BP 101/76
[2019-04-20 13:41] LABS: ALANINE AMINOTRANSFERASE 30 U/L (12-78); ALBUMIN 2.2 g/dL (3.4-5.0); ANION GAP 8 mmol/L (5-15); CHLORIDE 106 mmol/L (98-107); CREATININE 0.63 mg/dL (0.55-1.02)
[2019-04-20 13:43] LABS: ALKALINE PHOSPHATASE 496 U/L (45-117); BILIRUBIN,TOTAL 0.6 mg/dL (0.2-1.0); TOTAL PROTEIN 7.6 g/dL (6.4-8.2)
[2019-04-20] MEDS: CHOLECALCIFEROL 400 UNITS TABLET PO SCH (16:45)
[2019-04-20] MEDS: ERTAPENEM 1 GM in SODIUM CHLORIDE 0.9% 50 ML IV SCH (18:07)
[2019-04-20 19:25] VITALS: BP 97/66
[2019-04-20] MEDS: ZOLPIDEM 10MG TABLET PO PRN (21:27)
[2019-04-21 01:46] VITALS: BP 93/65
[2019-04-21] MEDS: GUAIFENESIN/DM 200-20MG, 10ML UDC PO PRN ×2 (06:03→20:32)
[2019-04-21] MEDS: OXYcodone IR 5MG TABLET PO PRN ×3 (06:03→18:29)
[2019-04-21 07:19] VITALS: BP 89/66
[2019-04-21] MEDS: MULTIVITAMINS WITH IRON TABLET PO SCH (08:39)
[2019-04-21] MEDS: MULTIVITS,STRESS FORMULA 1 TABLET PO SCH (08:39)
[2019-04-21] MEDS: APIXABAN 5 MG TABLET PO SCH ×2 (08:39→20:32)
[2019-04-21] MEDS: CALCIUM CARBONATE 500 MG TAB.CHEW PO SCH ×2 (08:39→20:32)
[2019-04-21] MEDS: ASCORBIC ACID 500 MG TABLET PO SCH ×2 (08:39→16:19)
[2019-04-21] MEDS: METHADONE 10 MG TABLET PO SCH ×3 (09:00→20:33)
[2019-04-21 12:37] VITALS: BP 95/66
[2019-04-21] MEDS: CHOLECALCIFEROL 400 UNITS TABLET PO SCH (16:19)
[2019-04-21] MEDS ORDERED: SODIUM CHLORIDE 0.9%, 500ML IVBOLUS ONE (16:30)
[2019-04-21] MEDS: ERTAPENEM 1 GM in SODIUM CHLORIDE 0.9% 50 ML IV SCH (18:17)
[2019-04-21 19:46] VITALS: BP 90/64
[2019-04-21 20:30] VITALS: BP 100/70
[2019-04-21] MEDS: ZOLPIDEM 10MG TABLET PO PRN (21:28)
[2019-04-22 00:08] VITALS: BP 110/78
[2019-04-22] MEDS: OXYcodone IR 5MG TABLET PO PRN ×3 (00:10→11:31)
[2019-04-22 07:25] VITALS: BP 96/68
[2019-04-22] MEDS ORDERED: SODIUM CHLORIDE 0.9% 1,000 ML IV SCH (09:00)
[2019-04-22] MEDS ORDERED: OMNIPAQUE 350 MG/ML, 75ML BOTTLE ONE (09:37)
[2019-04-22] MEDS: MULTIVITAMINS WITH IRON TABLET PO SCH (09:52)
[2019-04-22] MEDS: CALCIUM CARBONATE 500 MG TAB.CHEW PO SCH (09:52)
[2019-04-22] MEDS: MULTIVITS,STRESS FORMULA 1 TABLET PO SCH (09:53)
[2019-04-22] MEDS: APIXABAN 5 MG TABLET PO SCH (09:53)
[2019-04-22] MEDS: METHADONE 10 MG TABLET PO SCH (09:53)
[2019-04-22] MEDS: ASCORBIC ACID 500 MG TABLET PO SCH (09:53)
[2019-04-22 12:50] VITALS: BP 103/72
[2019-04-22] MEDS ORDERED: CHOL400T2 PO (13:41)
[2019-04-22] MEDS ORDERED: APIX5TAB PO (13:41)
[2019-04-22] MEDS ORDERED: METH10TA2 PO (13:49)
== END 2019-04-22 17:31 | disposition home or self-care (01) | DRG 853 ==
LOC: ED 01:05 → EDIP 01:34 → 4EST 17:29 → CCU 03-31 19:32 → 5SO 04-03 17:40 → 4WST 04-07 19:34
PROVIDERS: ADMIT Internal Medicine; ATTEND Internal Medicine
PROC: 0CDXXZ1 Extraction of Lower Tooth, Multiple, External Approach (ICD-10-PCS; 2019-02-28)
PROC: 0CDWXZ1 Extraction of Upper Tooth, Multiple, External Approach (ICD-10-PCS; 2019-02-28)
PROC: 0NBT0ZZ Excision of Right Mandible, Open Approach (ICD-10-PCS; principal; 2019-02-28 15:45)
PROC: 5A09357 Assistance with Respiratory Ventilation, Less than 24 Consecutive Hours, Continuous Positive Airway Pressure (ICD-10-PCS; 2019-03-10)
PROC: 02HV33Z Insertion of Infusion Device into Superior Vena Cava, Percutaneous Approach (ICD-10-PCS; 2019-03-21)
PROC: B5181ZA Fluoroscopy of Superior Vena Cava using Low Osmolar Contrast, Guidance (ICD-10-PCS; 2019-03-21)
PROC: B548ZZA Ultrasonography of Superior Vena Cava, Guidance (ICD-10-PCS; 2019-03-21)
PROC: 30233N1 Transfusion of Nonautologous Red Blood Cells into Peripheral Vein, Percutaneous Approach (ICD-10-PCS; 2019-03-27)
PROC: 02PYX3Z Removal of Infusion Device from Great Vessel, External Approach (ICD-10-PCS; 2019-03-31)
PROC: 02HV33Z Insertion of Infusion Device into Superior Vena Cava, Percutaneous Approach (ICD-10-PCS; 2019-03-31)
PROC: B5181ZA Fluoroscopy of Superior Vena Cava using Low Osmolar Contrast, Guidance (ICD-10-PCS; 2019-03-31)
PROC: 3E04317 Introduction of Other Thrombolytic into Central Vein, Percutaneous Approach (ICD-10-PCS; 2019-03-31)
PROC: 3E04317 Introduction of Other Thrombolytic into Central Vein, Percutaneous Approach (ICD-10-PCS; 2019-04-01)
DX: A41.9 Sepsis, unspecified organism (principal); E43 Unspecified severe protein-calorie malnutrition; I26.90 Septic pulmonary embolism without acute cor pulmonale; J15.9 Unspecified bacterial pneumonia; I33.0 Acute and subacute infective endocarditis; F11.23 Opioid dependence with withdrawal; I76 Septic arterial embolism; I82.619 Acute embolism and thrombosis of superficial veins of unspecified upper extremity; B95.4 Other streptococcus as the cause of diseases classified elsewhere; B95.8 Unspecified staphylococcus as the cause of diseases classified elsewhere; B96.89 Other specified bacterial agents as the cause of diseases classified elsewhere; D50.9 Iron deficiency anemia, unspecified; D63.8 Anemia in other chronic diseases classified elsewhere; Z68.23 Body mass index [BMI] 23.0-23.9, adult; Z88.8 Allergy status to other drugs, medicaments and biological substances; Z91.018 Allergy to other foods; E87.5 Hyperkalemia; F17.210 Nicotine dependence, cigarettes, uncomplicated; G50.0 Trigeminal neuralgia; G89.4 Chronic pain syndrome; I07.1 Rheumatic tricuspid insufficiency; I27.29 Other secondary pulmonary hypertension; I50.810 Right heart failure, unspecified; K02.9 Dental caries, unspecified; K04.7 Periapical abscess without sinus; K75.81 Nonalcoholic steatohepatitis (NASH); Y95 Nosocomial condition; Z51.5 Encounter for palliative care; Z79.01 Long term (current) use of anticoagulants; M27.2 Inflammatory conditions of jaws; R09.02 Hypoxemia; R50.2 Drug induced fever; Z86.718 Personal history of other venous thrombosis and embolism
CPT/HCPCS: 36415; 37214; 70100; 77001; 84145; 87806; 96367; 99291; J3490; J7613; 36573; 37213; 70487; 71045; 71046; 71250; 71260; 71275; 74150; 74181; 76700; 80048; 80053; 80061; 80074; 80202; 80307; 80356; 81001; 81003; 82247; 82248; 82272; 82728; 83010; 83036; 83540; 83550; 83605; 83615; 83735; 84075; 84080; 84100; 84439; 84443; 84466; 84703; 85014; 85018; 85025; 85049; 85379; 85384; 85520; 85610; 85651; 85730; 86140; 86592; 86850; 86900; 86923; 87040; 87070; 87081; 87086; 87103; 87181; 87205; 93005; 93306; 93308; 93321; 93325; 93970; 94640; 96365; 96372; 96375; G0378; J0171; J0456; J0696; J1100; J1335; J1644; J1650; J1756; J1885; J2185; J2250; J2405; J2543; J2704; J2997; J3010; J3370; Q0162; Q9967; C1751; C1769; C1894; G0475; G0480; J0330; J1200; J2270; J7030; J7040; J7050; P9016; Q0163